=== PATIENT | male | born 1960 | race Caucasian/White ===

== ENCOUNTER 2018-04-17 08:15 | Inpatient (IN) ==
[2018-04-17 08:30] LABS: Basophils # 0.1 K/mm3 (0-0.2); Basophils % 0.3 % (0.1-2.0); Eosinophils # 0.1 K/mm3 (0.0-0.4); Eosinophils % 0.6 % (0.1-12.0); Hematocrit 50.2 % (42.0-52.0); Hemoglobin 16.7 g/dL (14.1-18.0); Lymphocytes # 1.9 K/mm3 (0.7-4.5); Lymphocytes % 12.3 K/mm3 (10-50); Mean Corpuscular HGB Conc 33.2 g/dL (31.8-35.4); Mean Corpuscular Hemoglobin 30.3 pg (27.0-31.2); Mean Corpuscular Volume 91.2 fl (80-94); Mean Platelet Volume 7.7 fl (7.4-10.4); Monocytes # 0.8 K/mm3 (0.1-1.0); Neutrophils # 12.6 K/mm3 (1.8-7.8); Neutrophils % 81.8 % (37.0-80.0); Platelet Count 294 K/mm3 (142-424); Red Cell Distribution Width 13.2 % (11.5-17.5); White Blood Count 15.4 K/mm3 (4.8-10.8)
[2018-04-17 08:38] LABS: Anion Gap 7.4 mEq/L (5-15); Calcium 9.4 mg/dL (8.5-10.1); Potassium 4.4 mmoL/L (3.5-5.1)
--- NOTE | 2018-04-17 08:41 | Emergency Department Note ---
ED Disposition Clinical Impression: Acute pancreatitis Qualifiers: Pancreatitis type: other Acute pancreatitis complication: unspecified Qualified Code(s): K85.80 - Other acute pancreatitis without necrosis or infection Chest pain Qualifiers: Chest pain type: unspecified Qualified Code(s): R07.9 - Chest pain, unspecified Leukocytosis Qualifiers: Leukocytosis type: unspecified Qualified Code(s): D72.829 - Elevated white blood cell count, unspecified Syncope Qualifiers: Syncope type: unspecified Qualified Code(s): R55 - Syncope and collapse Disposition: Admitted As Inpatient Condition on Discharge: Fair Time of Disposition: 09:58 - Critical Care Critical Care Time: No Attestation: On 04/17/18, the high probability of a clinically significant, sudden or life threatening deterioration of the following system(s) required my full and direct attention, intervention and personal management. The time I documented below is in addition to time spent performing reported procedures but includes the following listed in this critical care notation. Total Critical Care Time: 90 Vital system(s) involved:: Metabolic Failure My critical care processes included: Assessment & monitoring of V/S, Initial and Re-exams, Data Review/Interpretation, Coordinating Care, Medication Orders and management, Documentation Medical Decision Making - Medical Records Medical records reviewed: Yes: I reviewed the patient's medical records. - Jarred Inquiry Pt receiving controlled substance: No Vital Signs: 04/17/18 08:15 04/17/18 08:38 04/17/18 08:54 Temperature 97.7 F Temperature Source Oral Pulse Rate Pulse Rate [Orthostatic Lying Right Brachial] 61 Pulse Rate [Orthostatic Sitting Right Brachial] 56 L Pulse Rate [Orthostatic Standing Right Brachial] 60 Pulse Rate [Right Brachial] 62 70 Respiratory Rate 18 18 Blood Pressure Blood Pressure [Orthostatic Lying Right Arm] 144/106 Blood Pressure [Orthostatic Sitting Right Arm] 134/74 Blood Pressure [Orthostatic Standing Right Arm] 139/86 Blood Pressure [Right Arm] 124/61 144/91 Blood Pressure Mean [Right Arm] 82 108 Blood Pressure Source Blood Pressure Source [Right Arm] Automatic Cuff Automatic Cuff Blood Pressure Position Blood Pressure Position [Right Arm] Sitting Sitting 02 Sat by Pulse Oximetry 93 L 93 L Oxygen Delivery Method Room Air Room Air 04/17/18 09:15 04/17/18 09:57 04/17/18 10:36 Temperature 97.9 F Temperature Source Oral Pulse Rate 72 Pulse Rate [Orthostatic Lying Right Brachial] Pulse Rate [Orthostatic Sitting Right Brachial] Pulse Rate [Orthostatic Standing Right Brachial] Pulse Rate [Right Brachial] 60 62 Respiratory Rate 18 18 18 Blood Pressure 155/82 Blood Pressure [Orthostatic Lying Right Arm] Blood Pressure [Orthostatic Sitting Right Arm] Blood Pressure [Orthostatic Standing Right Arm] Blood Pressure [Right Arm] 133/69 137/80 Blood Pressure Mean [Right Arm] 90 99 Blood Pressure Source Automatic Cuff Blood Pressure Source [Right Arm] Automatic Cuff Automatic Cuff Blood Pressure Position Sitting Blood Pressure Position [Right Arm] Sitting Sitting 02 Sat by Pulse Oximetry 95 95 Oxygen Delivery Method Room Air Room Air Room Air - Lab Data Lab results reviewed: Yes: I reviewed the patient's lab results. Lab Results 04/17/18 08:25: WBC 15.4 H, RBC 5.50, Hgb 16.7, Hct 50.2, MCV 91.2, MCH 30.3, MCHC 33.2, RDW 13.2, Plt Count 294, MPV 7.7, Neut % (Auto) 81.8 H, Lymph % (Auto ) 12.3, [place] % (Auto) 5.0, Eos % (Auto) 0.6, Baso % (Auto) 0.3, Neut # (Auto) 12.6 H, Lymph # (Auto) 1.9, [place] # (Auto) 0.8, Eos # (Auto) 0.1, Baso # (Auto) 0.1, Total Counted 100, Neutrophils % (Manual) 86 H, Lymphocytes % (Manual) 6 L , Atypical Lymphs % 6.0, Monocytes % (Manual) 2, Platelet Estimate Normal, RBC Morphology Normal 04/17/18 08:25: Troponin I < 0.02 04/17/18 08:25: Sodium 138, Potassium 4.4, Chloride 105, Carbon Dioxide 30, Anion Gap 7.4, BUN 19 H, Creatinine 0.96, Estimated Creat Clear 136, Estimated GFR 81, Est GFR ( Amer) 98, Glucose 170 H, Calcium 9.4 04/17/18 08:25: Total Bilirubin 0.7, Direct Bilirubin 0.1, Indirect Bilirubin 0.6, AST 19, ALT 39, Alkaline Phosphatase 76, Total Protein 7.6, Albumin 4.1 04/17/18 08:25: D-Dimer 215 04/17/18 08:25: B-Natriuretic Peptide 11 04/17/18 08:25: Amylase 1539 H*, Lipase 13256 H, TSH 2.96 Result diagrams: 04/17/18 08:25 04/17/18 08:25 Orders (Tests/Meds): ED MEDICATIONS Generic Name Dose Route Start Last Admin Trade Name Maxi PRN Reason Stop Dose Admin Sodium Chloride 1,000 mls @ 125 mls/hr 04/17/18 10:22 04/17/18 10:56 Sod Chlor 0.9% 1000ml Bag IV 05/17/18 10:21 125 mls/hr .Q8H MIHAELA Administration Morphine Sulfate 4 mg 04/17/18 10:22 Morphine 4mg/Ml Syringe IV 05/17/18 10:21 Q4HP PRN Moderate to Severe Pain Ondansetron HCl 4 mg 04/17/18 10:22 Zofran 4mg/2ml Vial IV 05/17/18 10:21 Q4HP PRN Nausea Sodium Chloride 10 ml 04/17/18 10:58 Saline Flush 10ml Syringe IV 05/17/18 10:57 NEEDED PRN Maintain IV Site Discontinued Medications Generic Name Dose Route Start Last Admin Trade Name Maxi PRN Reason Stop Dose Admin Aspirin 324 mg 04/17/18 08:42 04/17/18 08:45 Aspirin 81mg Chewable Tablet PO 04/17/18 08:43 324 mg ONCE ONE Administration Sodium Chloride 1,000 mls @ 999 mls/hr 04/17/18 09:00 04/17/18 08:56 Sod Chlor 0.9% 1000ml Bag IV 04/17/18 10:00 999 mls/hr .Q1H1M MIHAELA Administration Iopamidol 75 ml 04/17/18 09:41 04/17/18 09:42 [id number]; 75ml Vial IV 04/17/18 09:42 75 ml ONCE ONE Administration Morphine Sulfate 4 mg 04/17/18 10:16 04/17/18 10:30 Morphine 4mg/Ml Syringe IV 04/17/18 10:17 4 mg ONCE ONE Administration Morphine Sulfate 4 mg 04/17/18 10:22 04/17/18 10:38 Morphine 4mg/Ml Syringe IV 04/17/18 10:23 Not Given ONCE ONE Ondansetron HCl 4 mg 04/17/18 10:16 04/17/18 10:30 Zofran 4mg/2ml Vial IV 04/17/18 10:17 4 mg ONCE ONE Administration Ondansetron HCl 4 mg 04/17/18 10:22 04/17/18 10:38 Zofran 4mg/2ml Vial IV 04/17/18 10:23 Not Given ONCE ONE Sodium Chloride 10 ml 04/17/18 09:41 04/17/18 09:42 Rad-Saline Flush 10ml Syringe IV 04/17/18 09:42 10 ml ONCE ONE Administration Sodium Chloride 50 ml 04/17/18 09:41 04/17/18 09:42 Rad-Ns 50ml Vial IV 04/17/18 09:42 50 ml ONCE ONE Administration ORDERS Category Date Time Status UDS [Drug Screen,Urine] Stat Lab 04/17/18 08:55 Ordered Urinalysis and Microscopic Stat Lab 04/17/18 08:55 Ordered - Radiology Data #1 Image(s): Chest Image Reviewed: Yes I reviewed the patient's radiology results, Yes I reviewed the patient's radiology image, Yes I discussed the image results w/the radiologist, Yes I have reviewed radiologist's interpretation Preliminary Findings: Normal/NAD - CT Data CT Scan: Abdomen, Pelvis, Chest Time Received: 09:[address] Reviewed: Yes: I have reviewed the patient's CT results, I discussed the CT results w/the radiologist, I have viewed the radiologist's interpretation Preliminary Findings: Abnormal Findings Narrative: CT chest PE protocol - neg for PE, + cardiomegaly, + mild CHF - ECG Data Tracing #1 I reviewed this ECG and interpreted as documented below: heart rate 61, ECG normal with no acute: arrhythmias, ischemia, conduction abnormalities, chamber hypertrophy Normal Sinus Rhythm: Yes - Physician Consults Physician Consulted: Dr Teodoor Cox Time: 10:01 Reason -: Admission, Pt condition Comment/Response: advised of patient's presentation, findings, agreeable with admission. Additional Consult: DOMINIQUE Pelayo Time: 09:40 Reason -: Admission, Pt condition, Cardiology Eval/Care - Reevaluation(s) Time: 09:45 Reevaluation #1: Patient is medically stable, in no acute distress, discussed with patient the CAT scan findings, as well as decision to admit and keep him n.p.o., receive IV fluids and pain medication. General Adult HPI - General Chief complaint: Weakness Stated complaint: nausea, weakness Time Seen by Provider: 04/17/18 08:30 Mode of Arrival: Wheelchair Source of Information: Patient Limitations: No Limitations Description of Symptoms (Recalled from ER Triage Doc. by RN): Pt reports sharp stabbing pain lastnight after mowing, reports pain lasted approx 10 seconds and then went away, states he felt normal after that. Pt reports then at 0100 this morning he woke feeling nausea, epigastric area pain and feeling dizzy. Pt reports she found pt in the floor at 0600 this morning, pt reports he tried to get up got dizzy and fell. Pt is diaphoretic and pale upon arrival to ED - History of Present Illness HPI narrative: Patient is a 57-year-old male patient arrived to the emergency room after having a syncopal episode around 6 AM today, as described by his . Around 7 PM last night. Interscapular pain after mowing the lawn, and at 1 AM he had sharp, stabbing pain in the epigastric area. Patient had a steak last night with a bottle of beer, but denies any consistent, steady alcohol intake. He denies any previous, similar episodes in the past. Denies having any cardiac history. Onset (ago): hour(s) (3) Location: chest (posterior chest pain), abdomen (epigastrc pain) Radiation: non-radiation Severity: severe Severity scale (1-10): 8 Quality: sharp Consistency: constant Relieving factors: none Exacerbating factors: eating Associated symptoms: chest pain, diaphoresis, syncope - Related Data Home Medications Medication Instructions Recorded Confirmed Aspirin 81 mg PO DAILY 04/17/18 04/17/18 Omeprazole [Omeprazole 20mg Tab] 20 mg PO DAILY 04/17/18 04/17/18 Allergies Allergy/AdvReac Type Severity Reaction Status Date / Time No Known Allergies Allergy Verified 04/17/18 08:25 [facility] History I have reviewed the patient's past medical history: Yes Medical History: Denies:: Diabetes Mellitus Type 1, Diabetes Mellitus Type 2 - Social History Alcohol Intake: current Alcohol Intake Frequency:: holidays/special occasions only - Psychiatric History Expresses thoughts of harming self/others: None Suicide Plan Description: No Plan ROS Obtained: Yes All systems reviewed & no additional complaints, Yes Systems reviewed as appropriate & no additional complaints - Constitutional Constitutional: Reports weakness - Cardiovascular Cardiovascular: Reports as per HPI, Reports chest pain - Gastrointestinal Gastrointestingal: Reports: as per HPI, abdominal pain, nausea - Neurologic Neurologic: Reports as per HPI, Reports syncope Physical Exam - General General appearance: alert, in distress (mild) - Head Head exam: atraumatic, normocephalic, normal inspection - Neck Neck exam: Present: normal inspection, full ROM, trachea midline. Absent: meningismus, lymphadenopathy - Chest Chest inspection: Present: normal inspection, symmetric chest wall rise. Absent : tenderness - Respiratory Respiratory exam: Present: normal lung sounds bilaterally. Absent: respiratory distress - Cardiovascular Cardiovascular exam: Present: regular rate, normal rhythm. Absent: JVD - Abdominal Exam Abdominal exam: Present: soft, tenderness (upper abdomen), normal bowel sounds. Absent: distention, guarding - Extremities Exam Extremities exam: Present: normal inspection, full ROM, normal capillary refill. Absent: calf tenderness - Back Exam Back exam: Present: normal inspection. Absent: tenderness - Neurological Exam Neurological exam: Present: alert, oriented X3, CN II-XII intact, normal gait - Psychiatric Psychiatric exam: Present: normal affect, normal mood - Skin Skin exam: Present: warm, dry, intact, normal color - Lymphatic Lymphatic Findings: no adenopathy
[2018-04-17 08:56] LABS: Albumin Level 4.1 gm/dL (3.4-5.0); Bilirubin,Direct 0.1 mg/dL (0.0-0.2); Bilirubin,Indirect 0.6 mg/dL (0.0-0.9); Bilirubin,Total 0.7 mg/dL (0.2-1.0); Total Protein,Serum 7.6 gm/dL (6.4-8.2)
[2018-04-17 09:11] LABS: Lymphocytes % 6 % (10-50); Monocytes % 2 % (2-9); Neutrophils % 86 % (42-76); RBC Morphology Normal; Total Cells Counted 100
[2018-04-17 09:22] LABS: Thyroid Stimulating Hormone 2.96 uIU/ml (0.358-3.740)
--- NOTE | 2018-04-17 10:08 | Consult Report ---
History of Present Illness Consult date: 04/17/18 Consult reason: chest pain Chief complaint: Near syncope, abdominal pain Additional Medical History:: 1. Arthritis History of present illness: 57 yo WM presented to ER for evaluation of abdominal pain with nausea and lightheadedness. Patient relates onset of back discomfort after mowing and weed - eating last evening. Symptoms of back pain noted between the shoulder blades and last for about 10 minutes. Denies any vomiting or diarrhea. He went home and ate supper to shower and went to bed. He was awakened at 1 AM with discomfort in the upper abdomen/lower chest area again without vomiting or diarrhea but with nausea and dry heaving. Symptoms were recurrent throughout the rest of the morning until at 6 AM when he went into the bedroom he became lightheaded and dizzy and fell to the floor. His discovered him there stating he was awake but sweating profusely. They had plans to bring him to the doctor, but en route to the hospital, symptoms became worse and he came to the ER for evaluation. Initial evaluation in the ER shows normal troponins and EKG showing sinus bradycardia without acute changes. D-dimer is normal as is BNP. Patient is under CT of chest and abdomen due to elevated amylase and lipase. Echocardiogram is pending. Cardiology consulted for evaluation. [facility] History Medical History: Denies:: Diabetes Mellitus Type 1, Diabetes Mellitus Type 2 - *Social History Alcohol Intake: current Alcohol Intake Frequency:: holidays/special occasions only - Psychiatric History Expresses thoughts of harming self/others: None Suicide Plan Description: No Plan Meds Home Medications Medication Instructions Recorded Confirmed Type Aspirin 81 mg PO DAILY 04/17/18 04/17/18 History Omeprazole [Omeprazole 20mg Tab] 20 mg PO DAILY 04/17/18 04/17/18 History Allergies Allergy/AdvReac Type Severity Reaction Status Date / Time No Known Allergies Allergy Verified 04/17/18 08:25 Review of Systems - *Cardiovascular Reports chest pain - *Respiratory Denies shortness of breath with activity - *Gastrointestinal Reports abdominal pain, Reports nausea - *Genitourinary Denies difficulty urinating - *Musculoskeletal Reports joint pain - *Neurologic Reports weakness Exam Vital signs and Labs for Last 24 Hours: Temp Pulse Resp BP Pulse Ox 97.7 F 62 18 137/80 95 04/17/18 08:15 04/17/18 09:57 04/17/18 09:57 04/17/18 09:57 04/17/18 09:57 Laboratory Results - last 24 hr 04/17/18 08:25: WBC 15.4 H, RBC 5.50, Hgb 16.7, Hct 50.2, MCV 91.2, MCH 30.3, MCHC 33.2, RDW 13.2, Plt Count 294, MPV 7.7, Neut % (Auto) 81.8 H, Lymph % (Auto ) 12.3, [place] % (Auto) 5.0, Eos % (Auto) 0.6, Baso % (Auto) 0.3, Neut # (Auto) 12.6 H, Lymph # (Auto) 1.9, [place] # (Auto) 0.8, Eos # (Auto) 0.1, Baso # (Auto) 0.1, Total Counted 100, Neutrophils % (Manual) 86 H, Lymphocytes % (Manual) 6 L , Atypical Lymphs % 6.0, Monocytes % (Manual) 2, Platelet Estimate Normal, RBC Morphology Normal 04/17/18 08:25: Troponin I < 0.02 04/17/18 08:25: Sodium 138, Potassium 4.4, Chloride 105, Carbon Dioxide 30, Anion Gap 7.4, BUN 19 H, Creatinine 0.96, Estimated Creat Clear 136, Estimated GFR 81, Est GFR ( Amer) 98, Glucose 170 H, Calcium 9.4 04/17/18 08:25: Total Bilirubin 0.7, Direct Bilirubin 0.1, Indirect Bilirubin 0.6, AST 19, ALT 39, Alkaline Phosphatase 76, Total Protein 7.6, Albumin 4.1 04/17/18 08:25: D-Dimer 215 04/17/18 08:25: B-Natriuretic Peptide 11 04/17/18 08:25: Amylase 1539 H*, Lipase 59682 H, TSH 2.96 I & O for Last 24 hours: Intake & Output 04/14/18 04/15/18 04/16/18 04/17/18 11:59 11:59 11:59 11:59 Weight 250 lb Assessment and Plan (1) Acute pancreatitis Current visit: Yes Status: Acute Qualifiers: Pancreatitis type: other Acute pancreatitis complication: unspecified Qualified Code(s): K85.80 - Other acute pancreatitis without necrosis or infection Category: Medical Code(s): K85.90 - Acute pancreatitis without necrosis or infection, unspecified (2) Chest pain Current visit: Yes Status: Acute Qualifiers: Chest pain type: unspecified Qualified Code(s): R07.9 - Chest pain, unspecified Category: Medical Code(s): R07.9 - Chest pain, unspecified (3) Leukocytosis Current visit: Yes Status: Acute Qualifiers: Leukocytosis type: unspecified Qualified Code(s): D72.829 - Elevated white blood cell count, unspecified Category: Medical Code(s): D72.829 - Elevated white blood cell count, unspecified (4) Syncope Current visit: Yes Status: Acute Qualifiers: Syncope type: unspecified Qualified Code(s): R55 - Syncope and collapse Category: Medical Code(s): R55 - Syncope and collapse - Assessment and plan all Dx Assessment and Plan for all problems:: 1. Non-cardiac chest pains felt due to acute pancreatitis. 2. Echo shows preserved LVEF without wall motion abnormalities. Mitral Valve prolapse noted without regurgitation. Mild Aortic insufficiency. 3. No further cardiac workup at this time. 4. Follow up in our office in 2-3 wks.
--- NOTE | 2018-04-17 13:04 | History & Physical Report ---
*Admission Date: 04/17/18 *Chief complaint: abdominal pain *History of present illness: Mr. Shah is a 57 yo WM who presented to ER for evaluation of abdominal pain with nausea and lightheadedness that started this morning at 1 AM. Patient reports onset of back discomfort after mowing and weed-eating last evening that resolved. Pain was noted to be between the shoulder blades and last for about 10 minutes. Denies any vomiting or diarrhea. He went home and ate supper ( steak and a beer) had a shower and went to bed. He was awakened at 1 AM with discomfort in the upper abdomen/lower chest area again without vomiting or diarrhea but with nausea and dry heaving. Symptoms were recurrent throughout the rest of the morning until at 6 AM when he went into the bedroom he became lightheaded and dizzy and fell to the floor. His was present at bedside reports finding him on the floor of the bathroom awake, clammy, and sweating profusely. They had plans to bring him to the doctor, but en route to the hospital, symptoms became worse with a presyncopal episode reported in the car. He came to the ER for evaluation. Initial evaluation in the ER shows normal troponins and EKG showing sinus bradycardia without acute changes. D-dimer is normal as is BNP. Patient is under CT of chest and abdomen due to elevated amylase and lipase. Lipase significantly elevated greater than 11,000, her leukocytosis approximately 15,000, and CT abdomen with positive findings suggestive of pancreatitis. Cardiology consulted for evaluation of chest/back pain. Found to have non-cardiac etiology of pain. Admitted to inpatient medicine service for further management. [facility] History I have reviewed the patient's past medical history: Yes Medical History: Denies:: Diabetes Mellitus Type 1, Diabetes Mellitus Type 2 - *Social History Smoking Status: Former smoker Tobacco Type: cigars Alcohol Intake: current Alcohol Intake Frequency:: holidays/special occasions only - Psychiatric History Expresses thoughts of harming self/others: None Suicide Plan Description: No Plan Comment: Family history significant for brother with pancreatitis, mother with pancreatic cancer. Review of Systems - Review of Systems Review of systems:: pertinent systems reviewed and negative unless documented below - *Neurologic Reports fainting, Reports weakness Meds Home Medications Medication Instructions Recorded Confirmed Type Aspirin 81 mg PO DAILY 04/17/18 04/17/18 History Omeprazole [Omeprazole 20mg Tab] 20 mg PO DAILY 04/17/18 04/17/18 History Allergies Allergy/AdvReac Type Severity Reaction Status Date / Time No Known Allergies Allergy Verified 04/17/18 08:25 Exam Vital signs and Labs for Last 24 Hours: Temp Pulse Resp BP Pulse Ox 98.1 F 57 L 18 141/71 95 04/17/18 10:54 04/17/18 10:54 04/17/18 10:54 04/17/18 10:54 04/17/18 10:54 Laboratory Results - last 24 hr 04/17/18 08:25: WBC 15.4 H, RBC 5.50, Hgb 16.7, Hct 50.2, MCV 91.2, MCH 30.3, MCHC 33.2, RDW 13.2, Plt Count 294, MPV 7.7, Neut % (Auto) 81.8 H, Lymph % (Auto ) 12.3, [place] % (Auto) 5.0, Eos % (Auto) 0.6, Baso % (Auto) 0.3, Neut # (Auto) 12.6 H, Lymph # (Auto) 1.9, [place] # (Auto) 0.8, Eos # (Auto) 0.1, Baso # (Auto) 0.1, Total Counted 100, Neutrophils % (Manual) 86 H, Lymphocytes % (Manual) 6 L , Atypical Lymphs % 6.0, Monocytes % (Manual) 2, Platelet Estimate Normal, RBC Morphology Normal 04/17/18 08:25: Troponin I < 0.02 04/17/18 08:25: Sodium 138, Potassium 4.4, Chloride 105, Carbon Dioxide 30, Anion Gap 7.4, BUN 19 H, Creatinine 0.96, Estimated Creat Clear 136, Estimated GFR 81, Est GFR ( Amer) 98, Glucose 170 H, Calcium 9.4 04/17/18 08:25: Total Bilirubin 0.7, Direct Bilirubin 0.1, Indirect Bilirubin 0.6, AST 19, ALT 39, Alkaline Phosphatase 76, Total Protein 7.6, Albumin 4.1 04/17/18 08:25: D-Dimer 215 04/17/18 08:25: B-Natriuretic Peptide 11 04/17/18 08:25: Amylase 1539 H*, Lipase 32196 H, TSH 2.96 I & O for Last 24 hours: Intake & Output 04/14/18 04/15/18 04/16/18 04/17/18 23:59 23:59 23:59 23:59 Weight 117.48 kg - *Routine HEENT Exam Head: Present: normocephalic, atraumatic Eye: Present: EOMI ENT: Present: mucous membranes moist - *Routine Neck Exam Present: supple. Absent: lymphadenopathy - *Routine Respiratory Exam Present: CTA bilaterally. Absent: prolonged expiratory phase, rales, wheezes, crackles - *Routine Cardiovascular Exam Present: RRR, Normal S1, Normal S2. Absent: murmur - *Routine Abdominal Exam Present: soft, normoactive bowel sounds, tenderness Comments: Tender in left upper and left lower quadrants. No rebound. Palpation on right side of abdomen produces pain on left side. - *Routine Rectal Exam Patient deferred: visual exam - *Routine Exam Patient deferred: penile exam - *Routine Extremities Exam Absent: cyanosis, clubbing, edema - *Routine Skin Exam Present: intact. Absent: cyanosis, erythema, jaundice - *Routine Neurological Exam Present: alert, oriented X3, CN II-XII intact - Routine Psychiatric Exam Present: normal affect, normal thought process, cooperative, good insight H&P: Result - Labs Labs: Short CBC 04/17/18 Range/Units 08:25 WBC 15.4 H (4.8-10.8) K/mm3 Hgb 16.7 (14.1-18.0) g/dL Hct 50.2 (42.0-52.0) % Plt Count 294 (142-424) K/mm3 [facility] 04/17/18 08:25 Sodium 138 Potassium 4.4 Chloride 105 Carbon Dioxide 30 BUN 19 H Creatinine 0.96 Glucose 170 H Calcium 9.4 Cardiac Enzymes 04/17/18 Range/Units 08:25 Troponin I < 0.02 (0.00-0.06) ng/ml Liver Function 04/17/18 Range/Units 08:25 Total Bilirubin 0.7 (0.2-1.0) mg/dL Direct Bilirubin 0.1 (0.0-0.2) mg/dL AST 19 (15-37) U/L ALT 39 (12-78) U/L Alkaline Phosphatase 76 (46-116) U/L Albumin 4.1 (3.4-5.0) gm/dL Assessment and Plan (1) Class II obesity Current visit: Yes Status: Chronic Category: Medical Code(s): E66.9 - Obesity, unspecified (2) Acute pancreatitis Current visit: Yes Status: Acute Qualifiers: Pancreatitis type: other Acute pancreatitis complication: unspecified Qualified Code(s): K85.80 - Other acute pancreatitis without necrosis or infection Category: Medical Code(s): K85.90 - Acute pancreatitis without necrosis or infection, unspecified (3) Leukocytosis Current visit: Yes Status: Acute Qualifiers: Leukocytosis type: unspecified Qualified Code(s): D72.829 - Elevated white blood cell count, unspecified Category: Medical Code(s): D72.829 - Elevated white blood cell count, unspecified (4) Syncope Current visit: Yes Status: Acute Qualifiers: Syncope type: unspecified Qualified Code(s): R55 - Syncope and collapse Category: Medical Code(s): R55 - Syncope and collapse - Assessment and plan all Dx Assessment and Plan for all problems:: Mr. Shah is a 57-year-old male who presents with acute episode of pancreatitis. No clear risk factors as he has no history of gallstones, does not drink heavily, does not smoke anymore. Family history with other family members having had pancreatitis. -1 Joana criteria on admission, suggestive of mild pancreatitis, repeat score in 48 hours -Aggressive fluid resuscitation -Clear liquid diet, advance as tolerated -Pain control -Monitor for complications -LDH, lipids with morning labs -Right upper quadrant ultrasound pending
[2018-04-17 13:49] LABS: Microscopic, Urine URINE MICROSCOPIC (MICROSCOPIC)
[2018-04-17 13:51] LABS: Appearance,Urine CLEAR (Clear); Bilirubin,Urine Negative (Negative); Blood, Urine 1+ (Negative); Color,Urine YELLOW (Yellow); Glucose,Urine (UA) Negative (Negative); Ketones,Urine 1+ (Negative); Leukocyte Esterase,Urine Negative (Negative); PH,Urine 5.5 (5.0-8.5); Protein,Urine TRACE (Negative); Specific Gravity, Urine 1.025 (1.005-1.030); Urobilinogen,Urine 0.2 EU/dl (0.2)
[2018-04-17 14:02] LABS: Amphetamine/Metha Screen,Urine Negative ng/mL (<1000); Barbiturates Screen,Urine Negative ng/mL (<200); Benzodiazepines Screen,Urine Negative ng/mL (<200); Cannabinoid Screen,Urine Negative ng/mL (<50); Cocaine Screen,Urine Negative ng/mL (<300); Methadone Screen,Urine Negative ng/mL (<300); Opiate Screen,Urine Positive ng/mL (<300); Phencyclidine Screen,Urine Negative ng/mL (<25)
[2018-04-17 14:21] LABS: Bacteria,Urine Trace /lpf; Mucus,Urine Trace /lpf; RBC,Urine Occasional #/hpf (0-3); Squamous Epithelial Cell,Urine Occasional #/hpf (0-5); WBC,Urine Occasional #/hpf (0-3)
--- NOTE | 2018-04-17 15:04 | Cardiology Report ---
PROCEDURE: 2-D M-mode and color Doppler study INDICATIONS FOR THE TEST: Chest pain COPD Heart Murmur Tobacco SmokingEX Palpitations Fatigue SyncopeX Edema Hypertension Diabetes Mellitus Rheumatic Fever SOBXDOE ObesityXHyperlipidemia Family History HDX Additional History PATIENT INFORMATION HEIGHT: 70 WEIGHT:250 GENDER: Male B/P:117/62 2-D/M-MODE INTERPRETATION: 2-D MEASUREMENTS OBSERVED VALUES IN CMS Right Ventricular Dimension (RVDd) 2.6 Interventricular Septum (Thickness)(IVsd) 1.0 Left Ventricular Internal Dimensions(LVIDd) 5.8 Left Ventricular Posterior Wall (Thickness)(LVPWd) 1.2 Aortic Root 3.6 Aortic Cusp Separation 2.4 Left Atrial Dimensions (LAD) 4.0 2D 1. Left atrium is qualitatively mildly enlarged, left ventricle is normal size, visually estimated ejection fraction 55% with no obvious regional wall motion abnormality, left ventricle wall thickness is upper limit of the normal. 2. The right atrium and right ventricle are normal size and contractility. 3. The aortic valve is minimally thickened and fibrosed. 4. 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 5. The tricuspid valve is grossly normal. 6. The pulmonic valve is poorly visualized 7. No significant pericardial effusion noted. DOPPLER INTERROGATION: Doppler interrogation of the aortic, mitral and tricuspid valvular presence of mild aortic, mild mitral and tricuspid regurgitation, tricuspid regurgitant jet velocity is insufficient for calculation of the right ventricular systolic pressure, grade 1 diastolic dysfunction seen without tissue Doppler evidence of raised left atrial pressure. CONCLUSION: 1. Mildly enlarged left atrium, normal left ventricular size, visually estimated ejection fraction 55% with no obvious regional wall motion abnormality. Grade 1 diastolic dysfunction seen without tissue Doppler evidence of raised left atrial pressure. 2. Aortic sclerosis associated with mild aortic insufficiency, there is no aortic stenosis. 3. Mild mitral valve prolapse involving the posterior leaflet, there is no mitral stenosis, there is mild mitral regurgitation. No significant pericardial effusion noted.
--- NOTE | 2018-04-17 15:57 | Pharmacy Consult Notes ---
[facility] Pharm[facility] VTE Monitoring - Patient Demographics Admission date: 04/17/18 Report Date: 04/17/18 Time: 15:56 Allergies/Adverse Reactions: Patient Allergies No Known Allergies Allergy (Verified 04/17/18 08:25) Height: 1.78 m Weight: 117.48 kg Patient Problems: Current Active Problems Acute pancreatitis (Acute) Chest pain (Acute) Leukocytosis (Acute) Syncope (Acute) - VTE Risk Labs: VTE Related Lab Results Hgb 16.7 g/dL (14.1-18.0) 04/17/18 08:25 Hct 50.2 % (42.0-52.0) 04/17/18 08:25 Plt Count 294 K/mm3 (142-424) 04/17/18 08:25 BUN 19 mg/dL (7-18) H 04/17/18 08:25 Creatinine 0.96 mg/dL (0.70-1.30) 04/17/18 08:25 Estimated Creat Clear 136 mL/min (0-300) 04/17/18 08:25 Was VTE Risk Assessment Performed: Yes VTE Score: 2 VTE Risk Level: Very Low Risk Clinical Trial Participant: No - Prophylaxis VTE Prophylaxis Ordered?: Yes Types of VTE Prophylaxis: TEDS Knee High Location of Applied Device: Not Applicable
[2018-04-18 06:16] LABS: Basophils % 0.1 % (0.1-2.0); Hematocrit 44.4 % (42.0-52.0); Lymphocytes # 1.2 K/mm3 (0.7-4.5); Mean Corpuscular Volume 91.4 fl (80-94); Monocytes # 1.1 K/mm3 (0.1-1.0); Monocytes % 6.2 % (1.7-9.3)
[2018-04-18 06:28] LABS: Eosinophils % 0.1 % (0.1-12.0); Lymphocytes % 6.6 K/mm3 (10-50); Mean Corpuscular HGB Conc 33.6 g/dL (31.8-35.4); Mean Corpuscular Hemoglobin 30.7 pg (27.0-31.2); Mean Platelet Volume 7.8 fl (7.4-10.4); Neutrophils # 15.7 K/mm3 (1.8-7.8); Platelet Count 194 K/mm3 (142-424); Red Blood Count 4.85 M/mm3 (4.60-6.20); Red Cell Distribution Width 13.1 % (11.5-17.5); White Blood Count 18.1 K/mm3 (4.8-10.8)
[2018-04-18 06:31] LABS: Albumin Level 3.2 gm/dL (3.4-5.0); Anion Gap 7.7 mEq/L (5-15); Globulin 3.3 gm/dl (1.3-3.2); Potassium 3.7 mmoL/L (3.5-5.1); Total Protein,Serum 6.5 gm/dL (6.4-8.2)
[2018-04-18 06:32] LABS: Hemoglobin 14.9 g/dL (14.1-18.0)
[2018-04-18 06:39] LABS: Calcium 7.9 mg/dL (8.5-10.1)
[2018-04-18 06:58] LABS: Lymphocytes % 5 % (10-50); Monocytes % 10 % (2-9); Neutrophils % 85 % (42-76); RBC Morphology Normal; Total Cells Counted 100
--- NOTE | 2018-04-18 10:17 | Progress Note ---
Internal Medicine - PN: Subj *Date: 04/18/18 *Time: 08:20 Interval history: Patient states "I feel better than I did yesterday." Abdominal pain has improved. No nausea. Alert and oriented x3. Rate and rhythm regular. No LE edema. Pulse 2+ bilaterally. Lung sounds clear and equal. Abdomen protuberant, slightly distended, globalized tenderness, no rebound or guarding. No neuro deficits. Exam Vital signs and Labs for Last 24 Hours: Temp Pulse Resp BP Pulse Ox 97.6 F 102 H 18 126/72 92 L 04/18/18 08:00 04/18/18 08:00 04/18/18 08:00 04/18/18 08:00 04/18/18 08:00 Laboratory Results - last 24 hr 04/17/18 13:40: Urine Color Yellow, Urine Appearance Clear, Urine pH 5.5, Ur Specific [place] 1.025, Urine Protein Trace, Urine Glucose (UA) Negative, Urine Ketones 1+, Urine Blood 1+, Urine Nitrate Negative, Urine Bilirubin Negative, Urine Urobilinogen 0.2, Ur Leukocyte Esterase Negative, Urine RBC Occasional, Urine WBC Occasional, Ur Squamous Epith Cells Occasional, Urine Bacteria Trace, Urine Mucus Trace 04/17/18 13:40: Urine Opiates Screen Positive H, Urine Methadone Screen Negative , Ur Barbituates Screen Negative, Ur Phencyclidine Scrn Negative, Ur Amphetamines Screen Negative, U Benzodiazepines Scrn Negative, Urine Cocaine Screen Negative, U Marijuana (THC) Screen Negative 04/18/18 05:45: WBC 18.1 H, RBC 4.85, Hgb 14.9 D, Hct 44.4, MCV 91.4, MCH 30.7 , MCHC 33.6, RDW 13.1, Plt Count 194 D, MPV 7.8, Neut % (Auto) 87.0 H, Lymph % (Auto) 6.6 L, [place] % (Auto) 6.2, Eos % (Auto) 0.1, Baso % (Auto) 0.1, Neut # ( Auto) 15.7 H, Lymph # (Auto) 1.2, [place] # (Auto) 1.1 H, Eos # (Auto) 0.0, Baso # (Auto) 0.0, Total Counted 100, Neutrophils % (Manual) 85 H, Lymphocytes % ( Manual) 5 L, Monocytes % (Manual) 10 H, Platelet Estimate Normal, RBC Morphology Normal 04/18/18 05:45: Sodium 134 L, Potassium 3.7, Chloride 104, Carbon Dioxide 26, Anion Gap 7.7, BUN 12 D, Creatinine 0.73 D, Estimated Creat Clear 186, Estimated GFR 111, Est GFR ( Amer) 134 D, Glucose 122 H D, Calcium 7.9 L D, Total Bilirubin 1.0, AST 9 L D, ALT 29 D, Alkaline Phosphatase 62, Lactate Dehydrogenase 172, Total Protein 6.5, Albumin 3.2 L D, Globulin 3.3 H, Albumin/Globulin Ratio 1.0 L, Triglycerides 48, Cholesterol 115 L, LDL Cholesterol 67, VLDL Cholesterol 10, HDL Cholesterol 38, Cholesterol/HDL Ratio 3.0 I & O for Last 24 hours: Intake & Output 04/15/18 04/16/18 04/17/18 04/18/18 11:59 11:59 11:59 11:59 Intake Total 2044 Balance 2044 Weight 259 lb 259 lb Assessment and Plan (1) Class II obesity Current visit: Yes Status: Chronic Category: Medical Code(s): E66.9 - Obesity, unspecified (2) Acute pancreatitis Current visit: Yes Status: Acute Qualifiers: Pancreatitis type: other Acute pancreatitis complication: unspecified Qualified Code(s): K85.80 - Other acute pancreatitis without necrosis or infection Category: Medical Code(s): K85.90 - Acute pancreatitis without necrosis or infection, unspecified (3) Leukocytosis Current visit: Yes Status: Acute Qualifiers: Leukocytosis type: unspecified Qualified Code(s): D72.829 - Elevated white blood cell count, unspecified Category: Medical Code(s): D72.829 - Elevated white blood cell count, unspecified (4) Syncope Current visit: Yes Status: Acute Qualifiers: Syncope type: unspecified Qualified Code(s): R55 - Syncope and collapse Category: Medical Code(s): R55 - Syncope and collapse - Assessment and plan all Dx Assessment and Plan for all problems:: Improving. Gallbladder ultrasound pending. Continue clear liquids. Will evaluate GB US and consult surgery as indicated.
[2018-04-19 06:35] LABS: Albumin Level 2.9 gm/dL (3.4-5.0); Albumin/Globulin Ratio 0.9 (1.1-1.8); Anion Gap 11.7 mEq/L (5-15); Bilirubin,Total 1.2 mg/dL (0.2-1.0); Calcium 7.8 mg/dL (8.5-10.1); Globulin 3.3 gm/dl (1.3-3.2); Potassium 3.7 mmoL/L (3.5-5.1); Total Protein,Serum 6.2 gm/dL (6.4-8.2)
[2018-04-19 06:44] LABS: White Blood Count 17.1 K/mm3 (4.8-10.8)
[2018-04-19 06:45] LABS: Basophils % 0.2 % (0.1-2.0); Eosinophils # 0.1 K/mm3 (0.0-0.4); Eosinophils % 0.7 % (0.1-12.0); Hematocrit 41.9 % (42.0-52.0); Hemoglobin 14.2 g/dL (14.1-18.0); Lymphocytes # 0.9 K/mm3 (0.7-4.5); Lymphocytes % 5.4 K/mm3 (10-50); Mean Corpuscular Hemoglobin 30.9 pg (27.0-31.2); Mean Corpuscular Volume 91.1 fl (80-94); Mean Platelet Volume 7.7 fl (7.4-10.4); Monocytes # 1.2 K/mm3 (0.1-1.0); Monocytes % 6.9 % (1.7-9.3); Neutrophils # 14.5 K/mm3 (1.8-7.8); Neutrophils % 84.9 % (37.0-80.0); Platelet Count 182 K/mm3 (142-424); Red Cell Distribution Width 13.1 % (11.5-17.5)
[2018-04-19 06:54] LABS: Lymphocytes % 11 % (10-50); Monocytes % 4 % (2-9); Neutrophils % 77 % (42-76); RBC Morphology Normal; Total Cells Counted 100
--- NOTE | 2018-04-19 13:57 | Progress Note ---
Internal Medicine - PN: Subj *Date: 04/19/18 *Time: 13:59 Interval history: Overnight Mr. Chacon reports that his pain is doing better. He is able to tolerate some oral intake without much discomfort. Did require supplemental oxygen overnight due to some orthopnea. Otherwise denies confusion, lower extremity edema, nausea vomiting or diarrhea. Exam Vital signs and Labs for Last 24 Hours: Temp Pulse Resp BP Pulse Ox 98.7 F 88 20 164/77 90 L 04/19/18 11:13 04/19/18 11:13 04/19/18 11:13 04/19/18 11:13 04/19/18 11:13 Laboratory Results - last 24 hr 04/19/18 06:05: Sodium 136, Potassium 3.7, Chloride 102, Carbon Dioxide 26, Anion Gap 11.7, BUN 9, Creatinine 0.81, Estimated Creat Clear 167, Estimated GFR 98, Est GFR ( Amer) 119, Glucose 108 H, Calcium 7.8 L, Magnesium 1.7 , Total Bilirubin 1.2 H, AST 11 L, ALT 24, Alkaline Phosphatase 62, Total Protein 6.2 L, Albumin 2.9 L, Globulin 3.3 H, Albumin/Globulin Ratio 0.9 L 04/19/18 06:05: WBC 17.1 H, RBC 4.60, Hgb 14.2, Hct 41.9 L, MCV 91.1, MCH 30.9, MCHC 34.0, RDW 13.1, Plt Count 182, MPV 7.7, Neut % (Auto) 84.9 H, Lymph % (Auto ) 5.4 L, Hubbard % (Auto) 6.9, Eos % (Auto) 0.7, Baso % (Auto) 0.2, Neut # (Auto) 14.5 H, Lymph # (Auto) 0.9, Hubbard # (Auto) 1.2 H, Eos # (Auto) 0.1, Baso # (Auto ) 0.0, Total Counted 100, Neutrophils % (Manual) 77 H, Band Neutrophils % 8.0, Lymphocytes % (Manual) 11, Monocytes % (Manual) 4, Platelet Estimate Normal, RBC Morphology Normal I & O for Last 24 hours: Intake & Output 04/16/18 04/17/18 04/18/18 04/19/18 23:59 23:59 23:59 23:59 Intake Total 776 / 776 3423 / 3423 1984 Output Total 500 / 500 Balance 776 / 776 2923 / 2923 1984 Weight 117.48 kg - *Routine HEENT Exam Head: Present: normocephalic, atraumatic Eye: Present: EOMI, PERRL ENT: Present: mucous membranes moist - *Routine Neck Exam Present: supple. Absent: lymphadenopathy (Large girth) - *Routine Respiratory Exam Present: decreased breath sounds (Lower lung macario), CTA bilaterally (Upper lung macario), crackles (Fine crackles bilateral posterior lower lung macario). Absent: accessory muscle use, prolonged expiratory phase - *Routine Cardiovascular Exam Present: RRR, Normal S1, Normal S2. Absent: murmur - *Routine Abdominal Exam Present: soft (Full), normoactive bowel sounds, tenderness (Interval improvement decreased left sided tenderness, no rebound, no tenderness with right-sided palpation) - *Routine Rectal Exam Patient deferred: visual exam - *Routine Exam Patient deferred: penile exam - *Routine Extremities Exam Absent: cyanosis, clubbing, edema - *Routine Skin Exam Present: intact. Absent: cyanosis, erythema - *Routine Neurological Exam Present: alert, oriented X3, CN II-XII intact - Routine Psychiatric Exam Present: normal affect, normal thought process, cooperative, good insight Assessment and Plan (1) Class II obesity Current visit: Yes Status: Chronic Category: Medical Code(s): E66.9 - Obesity, unspecified (2) Acute pancreatitis Current visit: Yes Status: Acute Qualifiers: Pancreatitis type: other Acute pancreatitis complication: unspecified Qualified Code(s): K85.80 - Other acute pancreatitis without necrosis or infection Category: Medical Code(s): K85.90 - Acute pancreatitis without necrosis or infection, unspecified (3) Leukocytosis Current visit: Yes Status: Acute Qualifiers: Leukocytosis type: unspecified Qualified Code(s): D72.829 - Elevated white blood cell count, unspecified Category: Medical Code(s): D72.829 - Elevated white blood cell count, unspecified (4) Syncope Current visit: Yes Status: Acute Qualifiers: Syncope type: unspecified Qualified Code(s): R55 - Syncope and collapse Category: Medical Code(s): R55 - Syncope and collapse - Assessment and plan all Dx Assessment and Plan for all problems:: Mr. walker is a 57-year-old man who presented with acute mild to moderate pancreatitis. Symptoms improving. Has 2 [place] criteria on repeat labs showing low mortality risk. Advancing diet. Transitioning to oral pain control. Supplemental oxygen as needed. Will monitor for respiratory distress due to risk for ARDS and fluid shifts with pancreatitis. Instructed to ambulate around the valdovinos today. Initiate incentive spirometer. Reassess in the morning, continues to require inpatient management.
[2018-04-20 05:57] LABS: Anion Gap 10.4 mEq/L (5-15); Calcium 8.3 mg/dL (8.5-10.1); Phosphorous 2.2 mg/dL (2.4-4.9); Potassium 3.4 mmoL/L (3.5-5.1)
--- NOTE | 2018-04-20 07:54 | Discharge Summary ---
General - General Admission date:: 04/17/18 Discharge date: 04/20/18 HPI HPI: Mr. Shah is a 57 yo WM who presented to ER for evaluation of abdominal pain with nausea and lightheadedness that started this morning at 1 AM. Patient reports onset of back discomfort after mowing and weed-eating last evening that resolved. Pain was noted to be between the shoulder blades and last for about 10 minutes. Denies any vomiting or diarrhea. He went home and ate supper ( steak and a beer) had a shower and went to bed. He was awakened at 1 AM with discomfort in the upper abdomen/lower chest area again without vomiting or diarrhea but with nausea and dry heaving. Symptoms were recurrent throughout the rest of the morning until at 6 AM when he went into the bedroom he became lightheaded and dizzy and fell to the floor. His was present at bedside reports finding him on the floor of the bathroom awake, clammy, and sweating profusely. They had plans to bring him to the doctor, but en route to the hospital, symptoms became worse with a presyncopal episode reported in the car. He came to the ER for evaluation. Initial evaluation in the ER shows normal troponins and EKG showing sinus bradycardia without acute changes. D-dimer is normal as is BNP. Patient is under CT of chest and abdomen due to elevated amylase and lipase. Lipase significantly elevated greater than 11,000, her leukocytosis approximately 15,000, and CT abdomen with positive findings suggestive of pancreatitis. Cardiology consulted for evaluation of chest/back pain. Found to have non-cardiac etiology of pain. Admitted to inpatient medicine service for further management. Hospital Course Hospital Course: Patient was admitted as noted above, found to have pancreatitis. Imaging was nondiagnostic for etiology of the pancreatitis-no gallbladder pathology or stones were found. Patient's medication profile and alcohol use does not seem to be indicative of this being the etiology for pancreatitis. Patient does have somewhat of a vague history of pancreas problems, there is a relative with pancreas cancer but there is no significant family history of pancreatitis. Patient improved on pain control and dietary reduction, over the yesterday was able to be advanced to a full liquid diet. He did well with this. Did have a cough and some congestion. Chest x-ray revealed the developing infiltrate in the right lower lung base. Patient apparently has a long history of recurrent pneumonia. This morning patient otherwise is doing well, taking p.o. medication, taking full liquid diet well. Plan will be to discharge home, antibiotics and pain control for the bronchopneumonia/pancreatitis as indicated. He will follow-up with his regular physician on Friday. 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 Objective Vital signs: Temp Pulse Resp BP Pulse Ox 98.9 F 87 20 150/74 93 L 04/20/18 04:00 04/20/18 04:00 04/20/18 04:00 04/20/18 04:00 04/20/18 04:00 Narrative: Rhonchi in the right lower chest. Lungs are otherwise clear, heart rate regular. Abdomen soft and nontender. No edema or clubbing. He is alert, awake and oriented, he has no scleral icterus, no stigmata of liver disease. Results Labs on day of discharge: Labs from last 24 hours 04/20/18 05:32 Sodium 135 L Potassium 3.4 L Chloride 101 Carbon Dioxide 27 Anion Gap 10.4 BUN 9 Creatinine 0.69 L Estimated Creat Clear 196 Estimated GFR 118 Est GFR ( Amer) 143 D Glucose 113 H Calcium 8.3 L Phosphorus 2.2 L Magnesium 2.1 D DS: Diagnosis - Discharge Diagnosis (1) Class II obesity Status: Chronic (2) Acute pancreatitis Status: Resolved (3) Leukocytosis Status: Resolved (4) Syncope Status: Resolved (5) Bronchopneumonia Status: Acute Discharge Plan - Patient Discharge Instructions ACTIVITY: Continue current activity, Other (No work until seen by Dr. Witt) DIET: low fat, low cholesterol - Follow up Plan Follow up with: Moreno Witt [Primary Care Provider] - 04/24/18 Disposition: Home, Self-Detention Medications: Home Medications Medication Instructions Recorded Confirmed Type Aspirin 81 mg PO DAILY 04/17/18 04/17/18 History Omeprazole [Omeprazole 20mg Tab] 20 mg PO DAILY 04/17/18 04/17/18 History Prescriptions/Medication Reconciliation: New Oxycodone HCl [OxyIR 5mg tablet] 5 mg PO Q6HP PRN 3 Days #21 tab PRN Reason: Severe Pain Cefdinir [Omnicef 300mg Capsule] 300 mg PO BID #14 cap Continue Omeprazole [Omeprazole 20mg Tab] 20 mg PO DAILY Aspirin 81 mg PO DAILY
[2018-04-20 07:59] VITALS: BP 156/80
== END 2018-04-20 09:50 | disposition home or self-care (01) ==
LOC: ER 08:15 → 2ND 10:11
PROVIDERS: ADMIT Internal Medicine Adolescent Medicine; ATTEND Internal Medicine Adolescent Medicine

== ENCOUNTER → 2018-05-11 12:43 | Outpatient (POV) | payer OTHER, SELFPAY | PROVIDERS: PCP Internal Medicine; Visit Provider Nurse Practitioner Acute Care | DX: Z00.00 Encounter for general adult medical examination without abnormal findings (principal) ==

== ENCOUNTER → 2018-05-16 09:41 | Outpatient (CLI) | payer OTHER, SELFPAY ==
[2018-05-16 10:01] LABS: Basophils % 0.4 % (0.1-2.0); Eosinophils # 0.3 K/mm3 (0.0-0.4); Eosinophils % 6.1 % (0.1-12.0); Hematocrit 46.9 % (42.0-52.0); Hemoglobin 15.4 g/dL (14.1-18.0); Lymphocytes # 1.8 K/mm3 (0.7-4.5); Lymphocytes % 32.4 K/mm3 (10-50); Mean Corpuscular HGB Conc 32.9 g/dL (31.8-35.4); Mean Corpuscular Hemoglobin 29.7 pg (27.0-31.2); Mean Corpuscular Volume 90.4 fl (80-94); Mean Platelet Volume 7.7 fl (7.4-10.4); Monocytes # 0.5 K/mm3 (0.1-1.0); Neutrophils % 53.1 % (37.0-80.0); Platelet Count 221 K/mm3 (142-424); Red Blood Count 5.19 M/mm3 (4.60-6.20); White Blood Count 5.6 K/mm3 (4.8-10.8)
[2018-05-16 10:16] LABS: Hemoglobin A1C 5.7 % (0.0-7.0)
[2018-05-16 11:22] LABS: Alanine Aminotransferase 34 U/L (12-78); Albumin Level 3.7 gm/dL (3.4-5.0); Albumin/Globulin Ratio 1.1 (1.1-1.8); Anion Gap 11.6 mEq/L (5-15); Aspartate Amino Transferase 20 U/L (15-37); Bilirubin,Total 0.7 mg/dL (0.2-1.0); Blood Urea Nitrogen 10 mg/dL (7-18); Carbon Dioxide 26 mmol/L (21.0-32.0); Chloride 106 mmol/L (98-107); Cholesterol 159 mg/dL (140-200); Creatinine,Serum 0.94 mg/dL (0.70-1.30); Estimated Glomerular Filt Rate 83 ml/min (>60); GFR (African American) 100 ML/MIN (>60); Globulin 3.3 gm/dl (1.3-3.2); Glucose 100 mg/dL (74-106); HDL Cholesterol 37 mg/dL (27-67); LDL Cholesterol 95 mg/dL (0-130); Potassium 4.6 mmoL/L (3.5-5.1); Sodium 139 mmol/L (136-145); Triglycerides 133 mg/dL (30-200); VLDL Cholesterol 27 mg/dL (0-40)
[2018-05-16 11:23] LABS: Alkaline Phosphatase 79 U/L (46-116); Amylase 47 U/L (25-125); Chol/HDL Ratio 4.3 (1-3.5); Lipase 490 u/L (73-393)
[2018-05-19 14:26] LABS: Calcium, Ionized 5.3 mg/dL (4.5-5.6)
[2018-05-19 15:26] LABS: Antinuclear Antibodies, IFA Positive (.)
[2018-05-19 23:06] LABS: IgG, Subclass 1 559 mg/dL (248-810); IgG, Subclass 2 420 mg/dL (130-555); IgG, Subclass 3 73 mg/dL (15-102); IgG, Subclass 4 47 mg/dL (2-96); Immunoglobulin G, Qn 1181 mg/dL (700-1600)
== END ==
PROVIDERS: PCP Internal Medicine; Visit Provider Nurse Practitioner Acute Care
DX: K30 Functional dyspepsia (principal); K85.90 Acute pancreatitis without necrosis or infection, unspecified
CPT/HCPCS: 36415; 80053; 80061; 82150; 82330; 82784; 82787; 83036; 83690; 85025; 86038

== ENCOUNTER → 2021-03-26 10:19 | Outpatient (CLI) | payer OTHER, SELFPAY ==
[2021-03-26 10:21] LABS: Campylobacter Not Detected (NotDetected); Clostridium Difficile A/B, PCR Not Detected (NotDetected); Enteroaggregative E coli Not Detected (NotDetected); Plesimonas Shigalloides, PCR Not Detected (NotDetected); Salmonella, PCR Not Detected (NotDetected); Vibrio Cholerae Not Detected (NotDetected); Vibrio, PCR Not Detected (NotDetected); Yersinia Entercolitica, PCR Not Detected (NotDetected)
[2021-03-26 10:22] LABS: Adenovirus F 40/41, stool Not Detected (NotDetected); Astrovirus Not Detected (NotDetected); Cryptosporidium Not Detected (NotDetected); Cyclospora Cayetanesis Not Detected (NotDetected); Entamoeba histolytica Not Detected (NotDetected); Giardia lamblia Not Detected (NotDetected); Norovirus Not Detected (NotDetected); Rotavirus A Not Detected (NotDetected); Sapovirus Not Detected (NotDetected); Shiga-like toxin E coli Not Detected (NotDetected); Shigella Enterovasive E coli Not Detected (NotDetected)
[2021-03-26 11:22] LABS: Occult Blood,Stool Negative (Negative)
[2021-03-26 13:41] LABS: Enteropathogenic E coli Detected (NotDetected); Enterotoxigenic E coli Detected (NotDetected)
== END ==
PROVIDERS: Visit Provider Internal Medicine
DX: R19.7 Diarrhea, unspecified (principal)
CPT/HCPCS: 82272; 87507; G0328

== ENCOUNTER → 2021-04-02 10:14 | Outpatient (CLI) | payer OTHER, SELFPAY ==
[2021-04-02 12:01] LABS: Coronavirus 19 IgG Antibody Positive (Negative); Coronavirus 19 IgM Antibody Negative (Negative)
== END ==
PROVIDERS: Visit Provider Internal Medicine
DX: Z20.822 Contact with and (suspected) exposure to COVID-19 (principal); U07.1 COVID-19
CPT/HCPCS: 86328

== ENCOUNTER → 2021-04-09 08:05 | Outpatient (CLI) | payer OTHER, SELFPAY ==
[2021-04-09 08:09] LABS: Adenovirus F 40/41, stool Not Detected (NotDetected); Astrovirus Not Detected (NotDetected); Campylobacter Not Detected (NotDetected); Clostridium Difficile A/B, PCR Not Detected (NotDetected); Cryptosporidium Not Detected (NotDetected); Cyclospora Cayetanesis Not Detected (NotDetected); Entamoeba histolytica Not Detected (NotDetected); Enteroaggregative E coli Not Detected (NotDetected); Enteropathogenic E coli Not Detected (NotDetected); Enterotoxigenic E coli Not Detected (NotDetected); Giardia lamblia Not Detected (NotDetected); Norovirus Not Detected (NotDetected); Plesimonas Shigalloides, PCR Not Detected (NotDetected); Rotavirus A Not Detected (NotDetected); Salmonella, PCR Not Detected (NotDetected); Sapovirus Not Detected (NotDetected); Shiga-like toxin E coli Not Detected (NotDetected); Shigella Enterovasive E coli Not Detected (NotDetected); Vibrio Cholerae Not Detected (NotDetected); Vibrio, PCR Not Detected (NotDetected); Yersinia Entercolitica, PCR Not Detected (NotDetected)
== END ==
LOC: LAB 08:07 → LAB.DROPOF 08:10
PROVIDERS: Visit Provider Internal Medicine
DX: R19.7 Diarrhea, unspecified (principal)
CPT/HCPCS: 87507

== ENCOUNTER → 2021-05-07 15:49 | Outpatient (CLI) | payer OTHER, SELFPAY ==
[2021-05-07 16:40] LABS: Amylase 31 U/L (30-110); Lipase 70 U/L (23-300)
== END ==
PROVIDERS: Visit Provider Internal Medicine
DX: R11.0 Nausea (principal); Z87.19 Personal history of other diseases of the digestive system
CPT/HCPCS: 82150; 83690

== ENCOUNTER → 2021-05-15 09:16 | Outpatient (CLI) | payer OTHER, SELFPAY | PROVIDERS: Visit Provider Surgery | DX: Z01.812 Encounter for preprocedural laboratory examination (principal); Z11.52 Encounter for screening for COVID-19; U07.1 COVID-19; Z13.810 Encounter for screening for upper gastrointestinal disorder; Z12.11 Encounter for screening for malignant neoplasm of colon | CPT/HCPCS: U0003 ==

== ENCOUNTER → 2021-05-29 09:12 | Outpatient (CLI) | payer OTHER, SELFPAY | PROVIDERS: Visit Provider Surgery | DX: Z20.822 Contact with and (suspected) exposure to COVID-19 (principal) | CPT/HCPCS: C9803; U0003; U0005 ==

== ENCOUNTER 2021-05-31 09:54 | Day surgery (SDC) | payer OTHER, SELFPAY ==
[2021-05-09 14:33] VITALS: BMI 34.5
[2021-05-31] VITALS (7 sets, daily range): BP systolic 96–144; BP diastolic 56–75; PULSE 65–88; RESP 16–20; TEMP 36.1–36.8; O2SAT 97–98
--- NOTE | 2021-05-31 12:17 | [facility].SCOPE ---
- Procedure: Date: 05/31/21 Patient Date of :: 1960 Procedure Performed:: Esophagogastroduodenoscopy with biopsy Colonoscopy with biopsy Indications:: Gastroesophageal reflux History of colon polyps Diverticulosis Prostate asymmetry Performing Provider:: Trever Briceno MD Referring Provider:: . Sedation:: Monitored anesthesia care Procedure:: After informed consent was obtained the patient was taken to the endoscopy suite. Sedation ensued after the patient was transferred to the left lateral decubitus position. Pulse, blood pressure, and oxygen saturation were monitored throughout the procedure. The endoscope was advanced beyond the duodenal bulb. Retroflexion within the gastric lumen was accomplished. The gastroscope was carefully removed. Digital rectal exam revealed no significant abnormality. The colonoscope was placed in position. The entire colon was evaluated. The colonoscope was carefully removed and the patient was transferred to recovery in stable condition. Please see findings and specimens below for detail. Findings:: Gastroesophageal junction at 42 cm Mild candidal esophagitis Moderate patchy gastritis Gastric cardia polyp Poor bowel preparation colonoscopy Hemorrhoidal cushions/tags Mild prostatic nodularity Scattered AVMs Focal lobulated colorectal mucosal inflammation between 10 and 15 cm Specimens:: Antral biopsy Multiple biopsies of mid gastric body (area of increased inflammation) Gastric cardia polyp Multiple biopsies of colorectal inflammation between 10 and 15 cm Recommendations:: Diflucan ordered Repeat colonoscopy approximately 1 year secondary to history of polyps and limitations in visualization (poor prep) Follow-up pending pathology Complications:: No immediate Estimated blood obtained (mL): 1
== END 2021-05-31 13:04 | disposition home or self-care (01) ==
LOC: OUTP 09:55
PROVIDERS: PCP Internal Medicine; Visit Provider Surgery
PROC: 0DJ08ZZ Inspection of Upper Intestinal Tract, Via Natural or Artificial Opening Endoscopic (ICD-10-PCS; CPT 43235; principal; 2021-05-31 11:30)
DX: K64.0 First degree hemorrhoids (principal); N40.0 Benign prostatic hyperplasia without lower urinary tract symptoms; Z12.11 Encounter for screening for malignant neoplasm of colon; K55.20 Angiodysplasia of colon without hemorrhage; K63.89 Other specified diseases of intestine; B37.81 Candidal esophagitis; K31.7 Polyp of stomach and duodenum; Z86.010 Personal history of colon polyps; Z87.19 Personal history of other diseases of the digestive system; I10 Essential (primary) hypertension; Z79.82 Long term (current) use of aspirin; Z79.899 Other long term (current) drug therapy
CPT/HCPCS: 45380; 43239

== ENCOUNTER → 2021-09-11 10:41 | Outpatient (CLI) | payer OTHER, SELFPAY ==
[2021-09-11 11:48] LABS: Blood Urea Nitrogen 14 mg/dl (9-20); Estimated Glomerular Filt Rate 86 ml/min (>60); GFR (African American) 104 ML/MIN (>60)
== END ==
PROVIDERS: Visit Provider Internal Medicine
DX: R10.9 Unspecified abdominal pain (principal); K29.70 Gastritis, unspecified, without bleeding; R11.0 Nausea
CPT/HCPCS: 36415; 82565; 84520

== ENCOUNTER → 2021-09-12 08:26 | Outpatient (CLI) | payer OTHER, SELFPAY ==
--- NOTE | 2021-09-12 08:30 | CT_ITS ---
PROCEDURE: CT ABDOMEN PELVIS WO/W CON CLINICAL INDICATION: ABD PAIN,GASTRITIS,NAUSEA COMPARISON: CT ABDPELW CT abdomen pelvis w con from 04/17/2018 TECHNIQUE: IV Contrast: 75ML Isovue 370 Oral Contrast None Axial images obtained with sagittal and coronal reformats. All CT scans at the facility use one or more dose reduction, viz: automated exposure control, ma/kV adjustment per patient size (including targeted exams where dose is matched to indication, i.e. head), or iterative reconstruction technique. FINDINGS: LOWER THORAX: Mild thickening of the pericardium posteriorly measuring approximately 10 mm. Radiology splenic masses ABDOMEN & PELVIS: The liver has an unremarkable appearance. No radiopaque gallstones. The adrenal glands are unremarkable. The spleen is enlarged. There is an irregular solid appearing splenic mass which does not appear hypervascular. This lesion has markedly increased in size. The mass occupies most of the spleen measuring up to 12 cm cephalad caudad, 10 cm transverse, and 11 cm AP. The spleen itself measures 16 cm AP, 12 cm transverse, and 13 cm cephalad caudad. There is some haziness of the fat within the splenic hilum with suggestion of the mass extending beyond the splenic capsule at the splenic hilum. There is compression upon the lateral aspect of the body of the stomach by the enlarged spleen/mass. The fat plane between the splenic mass in the greater curvature of the stomach is somewhat infiltrated which could be due to involvement of the adventitia. There is mild haziness of the peripancreatic fat at the tail the pancreas. No peripancreatic effusion evident. No renal or ureteral calculi. No abdominal or retroperitoneal adenopathy. No intestinal obstruction or free air. There is mild amount of retained colonic feces in the cecal region. No evidence of appendicitis or diverticulitis. No pelvic mass. Small amount fluid is present in the pelvis. Degenerative changes are present in the hips. No acute bony anomaly. IMPRESSION: Large the irregular hypodense splenic mass with splenomegaly. Malignant neoplasm is considered. Differential diagnosis would include lymphoma, metastasis, angiosarcoma sarcoma, and malignant fibrous histiocytoma. MRI of the spleen with liver/splenic protocol suggested. There is suggestion of invasion into the splenic hilum and possibly the adventitia of the stomach. There is moderate compression upon the lateral aspect of the body of the stomach in the fundus. Haziness in the peripancreatic region at the pancreatic tail. Mild pancreatitis is considered. Dictated by: Eriberto Enciso MD 09/13/2021 10:21 Eriberto Enciso MD in [place] 09/13/2021 10:21
== END ==
PROVIDERS: PCP Internal Medicine; Visit Provider Internal Medicine
DX: R10.9 Unspecified abdominal pain (principal); K29.70 Gastritis, unspecified, without bleeding
CPT/HCPCS: 74178; Q9967

== ENCOUNTER → 2021-09-18 07:50 | Outpatient (CLI) | payer OTHER, SELFPAY ==
--- NOTE | 2021-09-18 07:51 | MR_ITS ---
FINAL REPORT TECHNIQUE: Multiplanar imaging was obtained through the abdomen, prior to and after intravenous administration of contrast. CLINICAL HISTORY: Liver/splenic protocol. ABNORMAL CT SCAN 09-12. FINDINGS: Abdominal MRI exam was obtained to better characterize the known abnormality within the spleen. Heterogeneous signal abnormality is identified within the spleen. This abnormality appears to represent a solid lobular mass with 3 dominant components. In aggregate, the mass measures proximally 14.2 x 10.7 cm. On the T2-weighted images, there is some mild fluid signal identified at the margin of the mass, particularly at the capsular margin laterally. On the pre-and post infusion images, the mass appears to mildly but heterogeneously enhance. There are 2 gallstones seen within the dependent portion of the gallbladder. IMPRESSION: 1. Unusual, heterogeneous solid splenic mass, as described. Neoplasia such as lymphoma cannot be excluded. Further characterization with PET scan is recommended prior to any attempt at biopsy. Authenticated by Raul Fofana MD on 09/18/2021 01:16:37 PM [facility]
== END ==
PROVIDERS: PCP Internal Medicine; Visit Provider Surgery
DX: R10.9 Unspecified abdominal pain (principal)
CPT/HCPCS: 74183; A9576

== ENCOUNTER → 2021-10-26 13:44 | Outpatient (CLI) | payer OTHER, SELFPAY ==
--- NOTE | 2021-10-26 | CA_ITS ---
APPROVED REPORT EXAM: Comprehensive 2D, Doppler, and color-flow Echocardiogram Vamp Liner: Stephaine Larsen RVT Ht: 5 ft 9 in Wt: 234lbs BSA: 2.21 BP: 146/92 mmHg Indications: B-CELL LYMPHOMA, PRE CHEMO ECHO,HTN,GERD 2D Dimensions LVOT 2.29 cm (M/F) 1.5-2.5 LA Volume 34.90 mL LA Volume Index 15.79 mL/m2 (M/F) 16-34 M-Mode Dimensions RVDd 2.42 cm (0.9-2.6) LA Diam 4.73 cm (1.9-4.0) LVDd 5.44 cm (3.5-5.7) Ao Diam 3.41 cm (2.0-3.7) LVDs 3.31 cm (3.5-5.7) IVSd 1.06 cm (0.6-1.1) PWd 0.76 cm (0.6-1.1) EF (Teich) 69.00% FS 39.20% EDV (Teich) 143.70 mL TAPSE 2.51 (<1.7) ESV (Teich) 44.50 mL LV Diastology E Decel Time 243.00 (160-240 msec) E/A Ratio 1.1 MED E' 3.40 (< 7 cm/sec) E'/MED E' Ratio 29.32 (>14) LAT E' 6.30 (<10 cm/sec) E/LAT E' Ratio 15.83 (>14) Aortic Valve AI PHT 423.00 ms AO Peak GR. 7.50 mmHg Mitral Valve MV E Max Dank. 100.00 (40-130 cm/s) MV A Velocity 92.00 (40-130 cm/s) E/A Ratio 1.08 MV Decel. Time 243.00 (160-240 ms) MV PHT 71.00 ms Pulmonary Valve PV Peak Velocity 103.00 (50-150 cm/s) Tricuspid Valve TR P. Velocity 266.00 cm/s RAP Estimate 10.00 mmHg RVSP 38.20 mmHg Left Ventricle Left atrium is mildly enlarged, left ventricle is normal size, mild concentric left ventricular hypertrophy, visually estimated ejection fraction approximately 55% with no regional wall motion abnormality. Diastolic parameters are inconclusive in the study. Right Ventricle Right atrium and right ventricle are mildly enlarged with normal contractility. Aortic Valve Aortic valve is thickened and calcified without aortic stenosis, there is moderate aortic insufficiency. Mitral Valve Mitral valve leaflets are minimally thickened, there is no mitral stenosis, there is mild mitral regurgitation. Tricuspid Valve Tricuspid valve grossly normal, there is mild tricuspid regurgitation, calculated right ventricular systolic pressure 38 mmHg. Pulmonic Valve Pulmonic valve is poorly visualized. Great Vessels Aortic root is normal size. Inferior vena cava normal size with normal inspiratory collapse. Pericardium No significant pericardial effusion noted. Conclusion 1. Normal left ventricular size, mild concentric left ventricular hypertrophy, visually estimated ejection fraction 55% with no regional wall motion abnormality, diastolic parameters are inconclusive. 2. Thickened and calcified aortic valve without aortic stenosis, there is moderate aortic insufficiency. 3. Mild mitral and tricuspid regurgitation, calculated right ventricular systolic pressure 38 mmHg. 4. No significant pericardial effusion. 5. Inferior vena cava is normal size with normal inspiratory collapse. Electronically signed by : Tae Keller MD 10/26/2021 15:42:55
== END ==
PROVIDERS: PCP Internal Medicine; Visit Provider Internal Medicine Hematology & Oncology
DX: D48.7 Neoplasm of uncertain behavior of other specified sites (principal); R16.1 Splenomegaly, not elsewhere classified; R19.09 Other intra-abdominal and pelvic swelling, mass and lump; Z80.0 Family history of malignant neoplasm of digestive organs
CPT/HCPCS: 93306

== ENCOUNTER → 2023-01-13 14:32 | Outpatient (CLI) | payer OTHER, SELFPAY | PROVIDERS: PCP Internal Medicine; Visit Provider Internal Medicine | DX: R40.0 Somnolence (principal); R06.83 Snoring; E66.9 Obesity, unspecified; G47.33 Obstructive sleep apnea (adult) (pediatric) | CPT/HCPCS: 95806 ==

== ENCOUNTER → 2023-08-27 14:02 | Outpatient (CLI) | payer OTHER, SELFPAY ==
--- NOTE | 2023-08-27 14:02 | ECG_ITS ---
APPROVED REPORT Exam: Resting ECG HR:77 bpm ECG Measurements Heart Rate 77 AXES FL 172 P 29 QRSd 102 QRS -17 QT 346 T 47 QTc 378 Conclusion SINUS RHYTHM NORMAL ECG UNCONFIRMED REPORT Electronically signed by : Ashkan Raymundo MD 08/28/2023 14:49:08
[2023-08-27 14:15] LABS: Microscopic, Urine URINE MICROSCOPIC (MICROSCOPIC)
[2023-08-27 14:47] LABS: Basophils # 0.1 K/mm3 (0-0.2); Basophils % 0.7 % (0.1-2.0); Eosinophils # 0.3 K/mm3 (0.0-0.4); Eosinophils % 2.8 % (0.1-12.0); Hematocrit 48.6 % (42.0-52.0); Hemoglobin 16.4 g/dL (14.1-18.0); Lymphocytes # 2.9 K/mm3 (0.7-4.5); Lymphocytes % 28.1 % (10-50); Mean Corpuscular HGB Conc 33.7 g/dL (31.8-35.4); Mean Corpuscular Hemoglobin 32.3 pg (27.0-31.2); Mean Corpuscular Volume 95.8 fl (80-94); Mean Platelet Volume 8.4 fl (7.4-10.4); Monocytes # 0.9 K/mm3 (0.1-1.0); Monocytes % 8.3 % (1.7-9.3); Neutrophils # 6.3 K/mm3 (1.8-7.8); Platelet Count 376 K/mm3 (142-424); Red Blood Count 5.07 M/mm3 (4.60-6.20); Red Cell Distribution Width 13.1 % (11.5-17.5); White Blood Count 10.5 K/mm3 (4.8-10.8)
[2023-08-27 14:48] LABS: Appearance,Urine CLEAR (Clear); Bilirubin,Urine Negative (Negative); Blood, Urine Negative (Negative); Color,Urine YELLOW (Yellow); Glucose,Urine (UA) Negative (Negative); Ketones,Urine Negative (Negative); Leukocyte Esterase,Urine Negative (Negative); Nitrate,Urine Negative (Negative); PH,Urine 5.5 (5.0-8.5); Protein,Urine Negative (Negative); Specific Gravity, Urine >= 1.030 (1.005-1.030); Urobilinogen,Urine 0.2 EU/dl (0.2)
[2023-08-27 14:54] LABS: Blood Urea Nitrogen 14 mg/dl (9-20); Carbon Dioxide 23 mmol/L (22.0-30.0); Chloride 106 mmol/L (98-107); Estimated Glomerular Filt Rate 85 ml/min (>60); GFR (African American) 103 ML/MIN (>60); Glucose 123 mg/dl (74-100); Sodium 136 mmol/L (136-145)
[2023-08-27 14:55] LABS: Anion Gap 11.4 mEq/L (5-15); Potassium 4.4 mmoL/L (3.5-5.1)
[2023-08-27 15:39] LABS: Bacteria,Urine Trace /lpf; Squamous Epithelial Cell,Urine Occasional #/hpf (0-5)
== END ==
PROVIDERS: PCP Internal Medicine; Visit Provider Surgery
DX: Z01.818 Encounter for other preprocedural examination (principal); K43.9 Ventral hernia without obstruction or gangrene
CPT/HCPCS: 36415; 80048; 81001; 85025; 93005

== ENCOUNTER 2023-09-04 09:41 | Day surgery (SDC) | payer OTHER, SELFPAY ==
[2023-09-03 08:35] VITALS: BMI 39.5
[2023-09-04] VITALS (10 sets, daily range): BP systolic 128–145; BP diastolic 68–89; PULSE 72–88; RESP 15–18; TEMP 36.4–43; O2SAT 90–96
[2023-09-04] MEDS: LACTATED RINGERS 1000ML 1,000 ML 100 ML IV (09:55)
--- NOTE | 2023-09-04 09:57 | EXP.ANES.CKL ---
[facility] Disclaimer: The information contained in this section may have been updated after the patient was seen, as this information can be updated by other users. Medical History (Updated 09/01/23 @ 14:09 by Ariana Jean Baptiste RN) Benign prostate hyperplasia History of gastroesophageal reflux (GERD) Spleen cancer Surgical History (Updated 09/01/23 @ 14:08 by Ariana Jean Baptiste RN) History of colonoscopy Hx of splenectomy Family History (Updated 09/01/23 @ 14:10 by Ariana Jean Baptiste RN) Other Family history of cancer Social History (Updated 09/01/23 @ 14:11 by Ariana Jean Baptiste RN) Smoking Status: Never smoker alcohol intake: never substance use type: denies use current occupational status: retired Travel in the last 8 weeks: None housing: house caffeine: Yes [facility] Anesthesia Checklist Patient Identification Patient Identification: Arm Band and Verbal (Name & ) Structural Data Admitted From: Home Planned Operative Procedure/s: Lap. incisional hernia repair Consent for Planned Operative Procedure(s) Verified: Yes NPO Status Verified Time NPO: 00:00 Chart Verification Results Verified: CBC and BMP Additional verifications Anesthesia Reactions: No Airway Assessment Mallampati Score:: Class IV C-Spine Mobility Assessed: Yes TMJ Mobility Assessed: Yes Dentition: Good Dentition Neurological Assessment Level of Consciousness: Awake Hx Seizures: No Numbness or tingling in extremities: No Anesthesia Plan Anesthesia Risk discussed: Yes Anesthesia Plan: Verified ASA Class: II Anesthesia Type: General
[2023-09-04] MEDS: CEFAZOLIN SODIUM 2 GM in 0.9 % SODIUM CHLORIDE 100 ML IV (11:25)
[2023-09-04] MEDS: LIDOCAINE 1% 20ML MDV 20 ML (11:44)
--- NOTE | 2023-09-04 12:59 | P.OP_ITS ---
Date of procedure: 09/04/23 Pre-op Diagnosis:: Incisional ventral hernia Post-op Diagnosis:: Same Procedure performed:: Open repair of incisional ventral hernia with 8 cm Ventralex mesh Surgeon:: Trever Briceno MD [employer] MEMBER:: Tu Villarreal Anesthesia: GETA Estimated blood loss (mL): 25 Operative findings:: Dominant 2 cm defect above umbilicus at inferior margin of incision Profound adhesions along anterior abdominal wall including adhesions to omentum, small bowel, and colon No obvious colonic or small bowel injury visualized Additional smaller Colombian cheese defects proximal to primary defect Combination of primary closure along the superior margin with #2 Novafil in addition to 8 cm Ventralex at the primary defect Operative note:: After informed consent was obtained the patient was taken to the operating room and placed in the supine position. General anesthesia was induced and his abdomen was prepped and draped in a sterile fashion. After infiltration with local anesthetic an incision was made overlying the palpable defect (along prior incision just above umbilicus). A combination of sharp dissection, blunt dissection, and electrocautery was utilized to transect through the deeper subcutaneous tissue. A dominant 2 cm defect was encountered. Sharp dissection and electrocautery was utilized to transect the hernia sac free and it was passed off for pathologic evaluation. Profound dense adhesions were then noted throughout the region with anterior abdominal wall adhesed to the underlying omentum, small bowel, and colon. Careful sharp and blunt dissection was utilized to free and margin of tissue to allow for closure. No obvious injury to small bowel or colon was seen. Superior to this dominant/primary defect was palpable evidence of smaller [place] cheese defects along the prior incision. The incision was extended cephalad through these small defects to allow for primary closure. #2 Novafil was utilized to reapproximate the superior margin fascia (the [place]ian cheese defect area). An 8 cm Ventralex mesh was then secured in position at the inferior primary defect with interrupted Ethibond. The 0 Ethibond was also utilized to create a primary overlay closure. The wound was thoroughly irrigated. Skin was then closed with darwin and dressings were applied. The patient was transferred to recovery in stable condition. Condition: stable Disposition: PACU Specimens:: Hernia sac Complications:: No immediate
--- NOTE | 2023-09-04 13:09 | EXP.ANES.I ---
[facility] Anesthesia Record Part I Anesthesia Record I Intake, IV Amount: 1,100 Hydration: Adequate Estimated blood loss (mL): 10 Urine output (mL): 0 Blood Products used (#): none Blood Pressure: 145/76 SaO2: 90 Pulse Rate: 72 Airway Patency: Patent Respiratory Rate: 16 Temperature: 98.9 F Patient is:: Drowsy and Stable Stable to PACU at:: 13:00
[2023-09-04] MEDS: HYDROMORPHONE 2MG/ML SYRINGE 0.5 MG IV (13:15)
--- NOTE | 2023-09-04 13:38 | SUR.PHASEI ---
1330- detailed report called to juwan katz in post op 1331- pt left in stable condition with juwan katz in post op. VSS
--- NOTE | 2023-09-04 13:50 | EXP.ANES.II ---
[facility] Anesthesia Record Part II Anesthesia Record Part II Discharge Time: 13:30 Destination: Surgical Day Care (OP Surgery) PACU nurse assessment reviewed?: Yes Patient Condition:: Good Anesthesia Complications:: None Swallowing reflex intact?: Yes Airway Patency: Patent Cyanosis?: No Blood Pressure: 141/75 SaO2: 94 Respiratory Rate: 16 Pulse Rate: 82 Temperature: 98.9 F Mental Status: Alert & Oriented Pain level:: 2 Nausea and/or vomitting:: None Intake, IV Amount: 0 Hydration: Adequate
== END 2023-09-04 14:20 | disposition home or self-care (01) ==
PROVIDERS: PCP Internal Medicine; Visit Provider Surgery
PROC: 0WQF4ZZ Repair Abdominal Wall, Percutaneous Endoscopic Approach (ICD-10-PCS; CPT 49591; principal; 2023-09-04 11:15)
DX: K43.2 Incisional hernia without obstruction or gangrene (principal); K66.0 Peritoneal adhesions (postprocedural) (postinfection)
CPT/HCPCS: 49591; 96374; C1781; J2405

== ENCOUNTER 2024-02-17 09:38 | Emergency (ER) | payer OTHER, SELFPAY ==
[2024-02-17 09:50] VITALS: BP 139/83; PULSE 57; RESP 18; TEMP 36.4; O2SAT 95; BMI 39.0
--- NOTE | 2024-02-17 10:09 | EXP.UTC ---
Discharge Plan Disposition Patient Disposition: Home, Self-Care Condition: Good Prescriptions Prescriptions: No Action tamsulosin 0.4 mg capsule 0.4 mg PO DAILY propranolol 80 mg Capsule,Extended Release 24 Hr 80 mg PO HS omeprazole 20 MG tablet,delayed release (DR/EC) 20 mg PO DAILY Referrals Follow up/Referrals: Moreno Witt MD [Primary Care Provider] - See instructions Activity Restrictions/Add. Instructions Additional Instructions/Restrictions: Drink a Gatorade to replace fluid/electrolytes. If symptoms persist or worsen follow up with PCP or return to [facility]. Viral Gastroenteritits Drink extra fluids with and between meals. If you have difficulty drinking, try very small amounts of water or suck on ice chips. ? Avoid fruit juices, as these do not replace minerals and can actually increase diarrhea. ? Children and adults can use sports drinks to replenish electrolytes. Younger children and infants should use products formulated for children, like oral rehydration solutions. ? Eat food in small amounts and let your stomach recover. ? Get lots of rest. You may feel tired or weak. ? No greasy or fried foods for the next 24-48 hours BRAT diet Bananas Rice Apples and [place] ? Make sure to drink plenty of liquids ? Return if needed ? Straight to ER if any life threatening symptoms ? Zofran as prescribed ? You was given an outpatient order for diarrhea panel, please collect specimen and bring back to outpatient lab then call back to the [facility] or follow up with family doctor for results ? Follow up with family doctor in the next 48-72 hours if no improvement or any worsening of symptoms Clinical Impressions Clinical Impression: Gastroenteritis Instructions Patient Instructions: DI for Nausea -- Adult, DI for Diarrhea and Traveler's Diarrhea -- Adult Discharge ED Provider: Jeannie Dunham [facility] [place] HPI General Stated complaint: diarrhea, weakness, abd pain Mode of Arrival: Ambulatory Source of Information: Patient Limitations: No Limitations Time Seen by Provider: 02/17/24 10:09 Description of Symptoms (Recalled from Triage Doc. by RN): Pt's symptoms are nausea, diarrhea, fatigue, and stomach cramping. HEENT Symptoms (Recalled from RN notes): No Resp Symptoms (Recalled from RN notes): No Skin Symptoms (Recalled from RN notes): No MS Symptoms (Recalled from RN notes): No Functional Status (Recalled from RN notes): n/a History of Present Illness Provider Complaint: Pt reports having some nausea since Friday and loose stool x3 last night. He took Zofran for his nausea and Imodium for the diarrhea. He reports that he does feel a little better. Related Data Home Medications Medication Instructions Recorded Confirmed omeprazole 20 mg tablet,delayed 20 mg PO DAILY acid reflux 04/17/18 02/17/24 release tamsulosin 0.4 mg capsule 0.4 mg PO DAILY URINATION 05/09/21 02/17/24 propranolol 80 mg capsule,24 80 mg PO HS 09/01/23 02/17/24 hr,extended release Allergies Allergy/AdvReac Type Severity Reaction Status Date / Time Sulfa (Sulfonamide Allergy Severe Palpitation Verified 02/17/24 10:08 Antibiotics) s Worker's Comp Is this a Worker's Comp case?: No [facility] Disclaimer: The information contained in this section may have been updated after the patient was seen, as this information can be updated by other users. Medical History (Updated 02/17/24 @ 10:25 by Jeannie Dunham APRN) Spleen cancer Benign prostate hyperplasia History of gastroesophageal reflux (GERD) Surgical History History of hernia repair Hx of splenectomy History of colonoscopy Family History Other Family history of cancer Social History Smoking Status: Never smoker alcohol intake: never substance use type: denies use current occupational status: retired Travel in the last 8 weeks: None housing: house caffeine: Yes ROS Obtained: Yes All systems reviewed & no additional complaints except as documented Constitutional Constitutional: Reports system reviewed and no additional complaints, except as documented and Reports malaise Eyes Eyes: Reports system reviewed and no additional complaints, except as documented ENT Ears, Nose, Mouth, and Throat: Reports system reviewed and no additional complaints, except as documented Cardiovascular Cardiovascular: Reports system reviewed and no additional complaints, except as documented Respiratory Respiratory: Reports system reviewed and no additional complaints, except as documented Gastrointestinal Gastrointestingal: Reports system reviewed and no additional complaints, except as documented, cramping, diarrhea and nausea Genitourinary Male Genitourinary: Reports system reviewed and no additional complaints, except as documented Musculoskeletal Musculoskeletal: Reports system reviewed and no additional complaints, except as documented Integumentary/Breasts Skin/Breast: Reports system reviewed and no additional complaints, except as documented Neurologic Neurologic: Reports system reviewed and no additional complaints, except as documented Endocrine Endocrine: Reports system reviewed and no additional complaints, except as documented Hematologic/Lymphatic Henatologic/Lymphatic: Reports system reviewed and no additional complaints, except as documented Allergic/Immunologic Allergic/Immunologic: Reports system reviewed and no additional complaints, except as documented Physical Exam General General appearance: alert and in no apparent distress Head Head exam: atraumatic and normocephalic Eye Eye exam: Present normal appearance ENT ENT exam: Present normal exam Neck Neck exam: Present normal inspection Chest Chest inspection: Present normal inspection and symmetric chest wall rise Respiratory Respiratory exam: Present normal lung sounds bilaterally Cardiovascular Cardiovascular exam: Present regular rate and normal rhythm Abdominal Exam Abdominal exam: Present soft and hyperactive bowel sounds Extremities Exam Extremities exam: Present normal inspection Back Exam Back exam: Present normal inspection Neurological Exam Neurological exam: Present alert and oriented X3 Psychiatric Psychiatric exam: Present normal affect and normal mood Skin Skin exam: Present warm, dry and intact Lymphatic Lymphatic Findings: no adenopathy Medical Decision Making Jarred Inquiry Pt receiving controlled substance: No Jarred was queried for this patient: No Vital Signs: 02/17/24 09:50 Temperature 97.6 F Temperature Source Oral Pulse Rate [Right Radial] 57 L Respiratory Rate 18 Blood Pressure [Right Arm] 139/83 Blood Pressure Mean [Right Arm] 101 Blood Pressure Source [Right Arm] Automatic Cuff Blood Pressure Position [Right Arm] Sitting 02 Sat by Pulse Oximetry 95 Oxygen Delivery Method Room Air Lab Data Lab results reviewed: Yes I reviewed the patient's lab results. Orders (Tests/Meds): ORDERS Category Date Time Status Urine Culture Stat Micro 02/17/24 09:57 Ordered
[2024-02-17 10:10] LABS: Apearance,Urine Clear (Clear); Bilirubin,Urine 1+ (Negative); Blood, Urine Negative (Negative); Color,Urine Dark Yellow (Yellow); Glucose,Urine (UA) Negative (Negative); Ketones,Urine Negative (Negative); Protein,Urine 1+ (Negative); UTC Leukocyte Esterase,Urine Negative (Negative); UTC Nitrate,Urine Negative (Negative); Urobilinogen,Urine 0.2 EU/dl (0.2)
[2024-02-17 10:28] VITALS: BP 139/83; PULSE 57; RESP 18; TEMP 36.6; O2SAT 95
== END 2024-02-17 10:28 | disposition home or self-care (01) ==
PROVIDERS: Emergency Provider Nurse Practitioner Family; PCP Internal Medicine
DX: R10.819 Abdominal tenderness, unspecified site (principal); K52.9 Noninfective gastroenteritis and colitis, unspecified; R11.0 Nausea; R53.83 Other fatigue
CPT/HCPCS: 81003; 99203; 99212; G0463

== ENCOUNTER 2024-06-11 10:23 | Outpatient (CLI) | payer OTHER, SELFPAY ==
[2024-06-11 10:27] LABS: Adenovirus F 40/41, stool Not Detected (NotDetected); Campylobacter Not Detected (NotDetected); Clostridium Difficile A/B, PCR Not Detected (NotDetected); Cryptosporidium Not Detected (NotDetected); Cyclospora Cayetanesis Not Detected (NotDetected); Entamoeba histolytica Not Detected (NotDetected); Enteroaggregative E coli Not Detected (NotDetected); Enteropathogenic E coli Not Detected (NotDetected); Enterotoxigenic E coli Not Detected (NotDetected); Giardia lamblia Not Detected (NotDetected); Norovirus Not Detected (NotDetected); Plesimonas Shigalloides, PCR Not Detected (NotDetected); Rotavirus A Not Detected (NotDetected); Salmonella, PCR Not Detected (NotDetected); Sapovirus Not Detected (NotDetected); Shiga-like toxin E coli Not Detected (NotDetected); Shigella Enterovasive E coli Not Detected (NotDetected); Vibrio Cholerae Not Detected (NotDetected); Vibrio, PCR Not Detected (NotDetected); Yersinia Entercolitica, PCR Not Detected (NotDetected)
[2024-06-11 14:35] LABS: Astrovirus Detected (NotDetected)
== END 2024-06-11 23:59 | disposition home or self-care (01) ==
LOC: LAB 10:24
PROVIDERS: PCP Internal Medicine; Visit Provider Internal Medicine
DX: A09 Infectious gastroenteritis and colitis, unspecified (principal)
CPT/HCPCS: 87506

== ENCOUNTER 2024-07-12 13:07 | Outpatient (CLI) | payer OTHER, SELFPAY ==
--- NOTE | 2024-07-12 13:12 | XR_ITS ---
PROCEDURE INFORMATION: Exam: XR Right Shoulder Exam date and time: 07/12/2024 1:13 PM Age: 64 years old Clinical indication: Pain; Shoulder; Right; Additional info: Right shoulder pain and stiffness TECHNIQUE: Imaging protocol: Radiologic exam of the right shoulder. Views: 2 or more views. COMPARISON: No relevant prior studies available. FINDINGS: Bones/joints: Normal. Soft tissues: Normal. IMPRESSION: No acute findings.
== END 2024-07-12 23:59 | disposition home or self-care (01) ==
LOC: RAD 13:08
PROVIDERS: PCP Internal Medicine; Visit Provider Internal Medicine
DX: M77.8 Other enthesopathies, not elsewhere classified (principal)
CPT/HCPCS: 73030

== ENCOUNTER 2024-07-23 07:34 | Outpatient (CLI) | payer OTHER, SELFPAY ==
--- NOTE | 2024-07-23 07:38 | CT_ITS ---
FINAL REPORT CLINICAL HISTORY: HX OF NON-HODGKIN S LYMPHOMA COMPARISON: 09/12/2021 FINDINGS: CT OF THE ABDOMEN AND PELVIS WITH CONTRAST Axial CT images of the abdomen and pelvis were obtained after the administration of IV contrast. Coronal and sagittal reformatted images were also obtained and reviewed. This study was performed with techniques to keep radiation doses as low as reasonably achievable (ALARA). Individualized dose reduction techniques using automated exposure control or adjustment of mA and/or kV according to the patient's size were employed. Abdomen: Mild atelectasis versus scarring is present in the lung bases.. The heart is normal in size. The liver has an unremarkable appearance, without evidence of mass or biliary ductal dilatation. Since the prior CT of 2020 the patient has undergone a splenectomy. No adrenal mass is present. The pancreas has an unremarkable appearance. The kidneys are normal, without evidence of mass or hydronephrosis. The aorta is normal in caliber. There is no free fluid or adenopathy. No mass or abnormal fluid collection is seen. Moderate vascular calcifications are present. Pelvis: The appendix is not well-visualized. An umbilical hernia is present containing fat, as well as a small left inguinal hernia which also contains fat. The urinary bladder is unremarkable. No inflammatory process is seen. There is no evidence of mass or adenopathy. There is no evidence of bowel obstruction. IMPRESSION: No significant mass or adenopathy is identified. Interval splenectomy since the prior exam of August 2021. Reviewed, Interpreted and Dictated by Lew Brandt III, MD Transcribed by Diann Michaud Authenticated and [facility]
[2024-07-23 08:07] LABS: Blood Urea Nitrogen 12 mg/dl (9-20); Estimated Glomerular Filt Rate 97 ml/min (>60); GFR (African American) 118 ML/MIN (>60)
--- NOTE | 2024-07-23 08:27 | CT_ITS ---
FINAL REPORT CLINICAL HISTORY: NON-HODGKINS lymphoma COMPARISON: None FINDINGS: Axial CT images of the chest were obtained with contrast. Coronal and sagittal reformatted images were also obtained. This study was performed with techniques to keep radiation doses as low as reasonably achievable, (ALARA). Individualized dose reduction techniques using automated exposure control or adjustment of mA and/or KV according to the patient's size were employed. There are small and borderline in size hilar and mediastinal nodes present. Cardiomegaly is present as well. No axillary mass or adenopathy is identified. On lung window images, no pulmonary mass or dominant pulmonary nodule is identified. Bilateral patchy opacities are present in the lung macario, favor edema. Several calcified granulomas are noted. IMPRESSION: Multifocal bilateral patchy opacities are present, favor edema. Small and borderline in size hilar and mediastinal nodes. Reviewed, Interpreted and Dictated by Lew Brandt III, MD Transcribed by Diann Michaud Authenticated and [facility]
[2024-07-23] MEDS: IOPAMIDOL-370 (76%);100ML BOTTLE 75 ML IV (08:40)
[2024-07-23] MEDS: SODIUM CHLORIDE 0.9% 10ML SYR (RAD ONLY) 10 ML IV (08:40)
== END 2024-07-23 23:59 | disposition home or self-care (01) ==
LOC: RAD 07:34
PROVIDERS: PCP Internal Medicine; Visit Provider Internal Medicine Hematology & Oncology
DX: Z85.72 Personal history of non-Hodgkin lymphomas (principal)
CPT/HCPCS: 36415; 71260; 74177; 82565; 84520; Q9967

== ENCOUNTER 2024-07-24 15:09 | Emergency (ER) | payer OTHER, SELFPAY ==
[2024-07-24 16:30] VITALS: BP 130/72; PULSE 71; RESP 21; TEMP 37.2; O2SAT 96; BMI 40.3
--- NOTE | 2024-07-24 16:58 | EXP.UTC ---
Discharge Plan Disposition Patient Disposition: Home, Self-Care Condition: Good Prescriptions Prescriptions: New azithromycin 250 mg tablet See Rx Instructions .ROUTE .COMPLEX Qty: 6 0RF Rx Instructions: For 250 mg dose pack: take 500 mg today (day 1), then 250 mg for 4 days (days 2-5) benzonatate 100 mg capsule 100 mg PO TID PRN (Reason: cough) Qty: 30 0RF methylprednisolone [Medrol (Antolin)] 4 mg tablets,dose pack See Rx Instructions .ROUTE .COMPLEX 6 Days Qty: 21 0RF Rx Instructions: 4 mg orally ;Medrol dose taper antolin No Action meloxicam 15 mg tablet 15 mg PO DAILY Patient Comments: TAKE ONE TABLET BY MOUTH EVERY DAY --TAKE WITH FOOD-- tamsulosin 0.4 mg capsule 0.4 mg PO DAILY Patient Comments: TAKE ONE CAPSULE BY MOUTH EVERY DAY AT BEDTIME propranolol 80 mg capsule,extended release 24 hr 80 mg PO DAILY Patient Comments: TAKE ONE CAPSULE BY MOUTH EVERY DAY AT BEDTIME omeprazole 20 mg capsule,delayed release(DR/EC) 20 mg PO DAILY Patient Comments: TAKE ONE CAPSULE BY MOUTH EVERY DAY FOR acid reflux propranolol 120 mg capsule,extended release 24 hr 120 mg PO DAILY Patient Comments: TAKE ONE CAPSULE BY MOUTH EVERY DAY FOR BLOOD PRESSURE AND tremor Referrals Follow up/Referrals: Moreno Witt MD [Primary Care Provider] - See instructions Activity Restrictions/Add. Instructions Additional Instructions/Restrictions: Take medication as prescribed. Increase fluids and rest. Follow up with PCP/UTC if symptoms persist or worsen. If you become short of air, go to the ER. Clinical Impressions Clinical Impression: Acute lower respiratory tract infection Instructions Patient Instructions: Acute Bronchitis Print Language Print Language: Palestinian Discharge ED Provider: Jeannie Dunham [facility] [place] General Stated complaint: sore throat,body aches,DOMINGUEZ,Congestion Mode of Arrival: Ambulatory Source of Information: Patient Limitations: No Limitations Time Seen by Provider: 07/24/24 16:57 Description of Symptoms (Recalled from Triage Doc. by RN): PATIENT C/O SORE THROAT, COUGH, AND LOW-GRADE FEVER THAT STARTED YESTERDAY HEENT Symptoms (Recalled from RN notes): Yes Resp Symptoms (Recalled from RN notes): Yes Skin Symptoms (Recalled from RN notes): No MS Symptoms (Recalled from RN notes): No Functional Status (Recalled from RN notes): WNL History of Present Illness Provider Complaint: Pt reports that he he has not felt well for awhile and then yesterday started having low grade fever with his cough and a sore throat. Related Data Home Medications ?Medication ?Instructions ?Recorded ?Confirmed meloxicam 15 mg tablet 15 mg PO DAILY 07/24/24 07/24/24 omeprazole 20 mg capsule,delayed 20 mg PO DAILY 07/24/24 07/24/24 release propranolol 120 mg capsule,24 120 mg PO DAILY 07/24/24 07/24/24 hr,extended release propranolol 80 mg capsule,24 80 mg PO DAILY 07/24/24 07/24/24 hr,extended release tamsulosin 0.4 mg capsule 0.4 mg PO DAILY 07/24/24 07/24/24 Previous Rx's ?Medication ?Instructions ?Recorded azithromycin 250 mg tablet See Rx Instructions PO .COMPLEX #6 07/24/24 tabs benzonatate 100 mg capsule 100 mg PO TID PRN cough #30 caps 07/24/24 methylprednisolone 4 mg tablets in See Rx Instructions .Route 07/24/24 a dose pack (Medrol (Antolin)) .COMPLEX 6 days #21 tabs Allergies Allergy/AdvReac Type Severity Reaction Status Date / Time Sulfa (Sulfonamide Allergy Severe Palpitation Verified 07/08/24 10:46 Antibiotics) s Worker's Comp Is this a Worker's Comp case?: No [facility] Disclaimer: The information contained in this section may have been updated after the patient was seen, as this information can be updated by other users. Medical History Major depressive disorder Spleen cancer Benign prostate hyperplasia History of gastroesophageal reflux (GERD) Surgical History History of hernia repair Hx of splenectomy History of colonoscopy Family History Other Family history of cancer Social History Smoking Status: Former smoker tobacco type: cigars second hand exposure: No alcohol intake: never counseling given: No substance use type: denies use counseling given: No current occupational status: retired Travel in the last 8 weeks: None adopted: No caregiver/support person: No foster care: No household members: significant other housing: house lives independently: Yes marital status: number of children: 41 number of grandchildren: 2 education level: high school current occupation: retired; worked at [employer] Recent Travel: No sexually active: No caffeine: Yes physical activity: none working smoke detector in home: Yes fire extinguisher in home: Yes carbon monox detector in home: Yes firearms in home: Yes firearms unloaded and locked: Yes do you feel safe at home: Yes victim of physical abuse: No victim of emotional abuse: No victim of sexual abuse: No would you like helpful sources: No ROS Obtained: Yes All systems reviewed & no additional complaints except as documented Constitutional Constitutional: Reports system reviewed and no additional complaints, except as documented and Reports fever(s) Eyes Eyes: Reports system reviewed and no additional complaints, except as documented ENT Ears, Nose, Mouth, and Throat: Reports system reviewed and no additional complaints, except as documented and Reports nasal congestion Cardiovascular Cardiovascular: Reports system reviewed and no additional complaints, except as documented Respiratory Respiratory: Reports system reviewed and no additional complaints, except as documented, Reports change in phlegm color and Reports cough with sputum production Gastrointestinal Gastrointestingal: Reports system reviewed and no additional complaints, except as documented Genitourinary Male Genitourinary: Reports system reviewed and no additional complaints, except as documented Musculoskeletal Musculoskeletal: Reports system reviewed and no additional complaints, except as documented Integumentary/Breasts Skin/Breast: Reports system reviewed and no additional complaints, except as documented Neurologic Neurologic: Reports system reviewed and no additional complaints, except as documented Endocrine Endocrine: Reports system reviewed and no additional complaints, except as documented Hematologic/Lymphatic Henatologic/Lymphatic: Reports system reviewed and no additional complaints, except as documented Allergic/Immunologic Allergic/Immunologic: Reports system reviewed and no additional complaints, except as documented Physical Exam General General appearance: alert and in no apparent distress Head Head exam: atraumatic and normocephalic Eye Eye exam: Present normal appearance ENT ENT exam: Present mucous membranes moist Expanded ENT Exam External ear exam: Present normal external inspection Nasal speculum exam: Bilateral: normal Mouth exam: Present normal external inspection Teeth exam: Present normal inspection Throat exam: Present tonsillar erythema and tonsillomegaly Neck Neck exam: Present normal inspection; Absent lymphadenopathy Chest Chest inspection: Present normal inspection and symmetric chest wall rise Respiratory Respiratory exam: Present other Expanded Respiratory Exam Location: Left: rales, Right: rales and Lower: rales Cardiovascular Cardiovascular exam: Present regular rate and normal rhythm Abdominal Exam Abdominal exam: Present soft Extremities Exam Extremities exam: Present normal inspection Back Exam Back exam: Present normal inspection Neurological Exam Neurological exam: Present alert and oriented X3 Psychiatric Psychiatric exam: Present normal affect and normal mood Skin Skin exam: Present warm, dry and intact Lymphatic Lymphatic Findings: no adenopathy Medical Decision Making Medical Records Screening: Per USPSTF and CDC recommendations, given the prevalence of disease in our region, it is our hospital?s policy to screen for HIV and viral Hepatitis for all patients aged 18 and over and those with ongoing risk factors. Jarred Inquiry Pt receiving controlled substance: No Ajrred was queried for this patient: No Vital Signs: 07/24/24 16:30 Temperature 99.0 F Temperature Source Oral Pulse Rate [Left Brachial] 71 Respiratory Rate 21 Blood Pressure [Left Arm] 130/72 Blood Pressure Mean [Left Arm] 91 Blood Pressure Source [Left Arm] Automatic Cuff Blood Pressure Position [Left Arm] Sitting 02 Sat by Pulse Oximetry 96 Oxygen Delivery Method Room Air Lab Data Lab results reviewed: Yes I reviewed the patient's lab results.
[2024-07-24 17:07] VITALS: BP 130/72; PULSE 71; RESP 21; TEMP 37.2; O2SAT 96
[2024-07-24 17:07] LABS: UTC Strep Screen (Rapid) Negative (Negative)
== END 2024-07-24 17:09 | disposition home or self-care (01) ==
PROVIDERS: Emergency Provider Nurse Practitioner Family; PCP Internal Medicine
DX: J22 Unspecified acute lower respiratory infection (principal); R07.0 Pain in throat; R51.9 Headache, unspecified; R09.81 Nasal congestion; R50.9 Fever, unspecified; R05.9 Cough, unspecified
CPT/HCPCS: 87880; 99212; G0381

== ENCOUNTER 2025-01-19 09:20 | Outpatient (CLI) | payer OTHER, SELFPAY ==
--- NOTE | 2025-01-19 09:26 | CT_ITS ---
FINAL REPORT TECHNIQUE: Thin section axial images were obtained from the thoracic inlet through the upper abdomen after intravenous contrast injection. Reconstruction images were obtained from the axial data. Exam was performed using dose reduction technique. CLINICAL HISTORY: .non hodgkins lymphoma COMPARISON: 07/23/2024 FINDINGS: No axillary lymphadenopathy. Small and borderline's mediastinal and hilar lymph nodes are unchanged. The heart is enlarged. There is no pleural or pericardial effusion. There is persistent interlobular septal thickening and patchy groundglass opacities. No suspicious nodules. No acute osseous abnormality. IMPRESSION: Stable small and borderline lymph nodes are nonspecific. Cardiomegaly with interlobular septal thickening and groundglass opacities favored represent edema, although small airway or small vessel disease is not excluded. Reviewed, Interpreted and Dictated by Larisa Thomas MD Transcribed by Eliane Jasso Authenticated and [facility]
--- NOTE | 2025-01-19 09:26 | CT_ITS ---
FINAL REPORT TECHNIQUE: Thin section axial images are obtained through the abdomen and pelvis after intravenous contrast. Reconstruction images were obtained from the axial data. Exam was performed using dose reduction techniques. CLINICAL HISTORY: HX OF NON-HODGKIN S LYMPHOMA COMPARISON: 07/23/2024 FINDINGS: LIVER: Homogeneous. No focal lesion. GALLBLADDER/BILIARY SYSTEM: Gallbladder is present. No gallstones. No biliary dilatation. SPLEEN: Absent PANCREAS: Unremarkable. ADRENALS: Unremarkable. KIDNEYS/URETERS/BLADDER: No mass or hydronephrosis. Several cysts along the inferior right kidney. Unremarkable urinary bladder. GI TRACT: No small bowel obstruction or dilatation. Appendix not seen but no secondary signs of appendicitis. No acute colon abnormality. PELVIC ORGANS: Unremarkable for age. LYMPH NODES/RETROPERITONEUM/MESENTERY: Stable small bilateral inguinal lymph nodes. No lymphadenopathy in the abdomen or pelvis. No abdominal aortic aneurysm. ABDOMINAL WALL: Fat-containing umbilical hernia is unchanged.. FREE FLUID: No ascites. BONES: No acute osseous abnormality. IMPRESSION: No lymphadenopathy. No acute abnormality. Reviewed, Interpreted and Dictated by Larisa Thomas MD Transcribed by Eliane Jasso Authenticated and [facility]
[2025-01-19 10:01] LABS: Blood Urea Nitrogen 13 mg/dl (9-20); Estimated Glomerular Filt Rate 97 ml/min (>60); GFR (African American) 118 ML/MIN (>60)
[2025-01-19] MEDS: IOPAMIDOL-370 (76%);100ML BOTTLE 75 ML IV (10:27)
[2025-01-19] MEDS: SODIUM CHLORIDE 0.9% 10ML SYR (RAD ONLY) 10 ML IV (10:27)
== END 2025-01-19 23:59 | disposition home or self-care (01) ==
LOC: RAD 09:21
PROVIDERS: PCP Internal Medicine; Visit Provider Internal Medicine Hematology & Oncology
DX: I51.7 Cardiomegaly (principal); Z85.72 Personal history of non-Hodgkin lymphomas
CPT/HCPCS: 36415; 71260; 74177; 82565; 84520; Q9967

== ENCOUNTER 2025-02-28 14:09 | Outpatient (CLI) | payer OTHER, SELFPAY ==
--- OUTSIDE RECORDS SUMMARY | 2025-02-28 14:13 | XMS_ITS | Clinical Summary ---
Author Organization [facility] Address [address] [place] [address] Care Team Providers Care Stars Analytical Lead Name Role Phone Moreno Witt MD Primary Care Provider [phone] Allergies Active Allergy Reactions Criticality Noted Date Comments Pneumococcal Vaccines Dizziness Low 10/17/2021 Medications bisoprolol (Zebeta) 5 MG tablet Take 5 mg by mouth 1 (one) time each day. 1 Active tamsulosin (Flomax) 0.4 MG 24 hr capsule Take 0.4 mg by mouth every night. 2 Active lactobacillus (Culturelle Immunity Support) capsule Take 1 capsule by mouth every night. Active loperamide (Imodium) 2 MG capsule Take 2 mg by mouth 4 (four) times a day if needed for diarrhea. Active senna-docusate (Poppy-Colace) 8.6-50 MG tablet Take 1 tablet by mouth 2 (two) times a day if needed for constipation. 30 tablet 1 2 Active metoclopramide (Reglan) 10 MG tablet Take 1 tablet (10 mg total) by mouth 4 (four) times a day (before meals and nightly). 120 tablet 2 Active Misc. Devices (pill splitter) 1 each 1 (one) time each day if needed (to split oxycodone). 1 each 2 Active methocarbamol (Robaxin) 500 MG tablet Take 1 tablet (500 mg total) by mouth 4 (four) times a day. 40 tablet 2 Active enoxaparin (Lovenox) 40 MG/0.4ML solution Inject 0.4 mL (40 mg total) under the skin 1 (one) time each day. 23 each 2 Active acetaminophen (Tylenol) 500 MG tablet Take 1 tablet (500 mg total) by mouth every 6 (six) hours if needed for mild pain. 30 tablet 2 Active oxyCODONE (Roxicodone) 5 MG immediate release tablet Take 1 tablet (5 mg total) by mouth every 4 (four) hours if needed for moderate pain. 18 tablet 2 Active ondansetron ODT (Zofran-ODT) 4 MG disintegrating tablet Take 1 tablet (4 mg total) by mouth every 8 (eight) hours if needed for nausea or vomiting. 10 tablet 2 Active nutritional drink (Boost Plus) liquid liquid Take 237 mL by mouth 3 (three) times a day. 6399 mL 2 2 Active LORazepam (Ativan) 0.5 MG tablet TAKE ONE TABLET BY MOUTH THREE TIMES DAILY NEEDED FOR nerves MAY CAUSE DROWSINESS 2 Active Active Problems Problem Noted Date Diagnosed Date BPH (benign prostatic hyperplasia) 10/16/2021 GERD (gastroesophageal reflux disease) 2 Splenic mass 10/16/2021 HTN (hypertension) 10/16/2021 Obesity (BMI 30.0-34.9) 10/16/2021 Immunizations Immunization Administration Dates Next Due Hib (PRP-T) 10/22/2021 Meningococcal B, Omv 03/05/2022,10/22/2021 Meningococcal MCV4O 03/05/2022,10/22/2021 Pneumococcal Conjugate PCV 13 10/22/2021 Pneumococcal Polysaccharide PPV23 03/05/2022 Family History Medical History Relation Name Comments Lymphoma Father Pancreatic cancer Mother Diabetes Paternal Grandfather Relation Name Status Comments Father Mother Paternal Grandfather Social History Tobacco Use Types Packs/Day Years Used Date Smoking Tobacco: Former Cigars Q uit: 2013 Smokeless Tobacco: Never Alcohol Use Standard Drinks/Week Comments Not Currently 0 (1 standard drink = 0.6 oz pur e alcohol) rarely Sex and Gender Information Value Date Recorded Sex Assigned at Not on file Legal Sex Male 9:07 AM EST Gender Identity Not on file Sexual Orientation Not on file Last Filed Vital Signs Vital Sign Reading Time Taken Comments Blood Pressure 133/81 11/06/2021 8:53 AM EST Pulse 52 11/06/2021 8:53 AM EST Temperature 36.9 C (98.4 F) 11/06/2021 8:53 AM EST Respiratory Rate 20 11/06/2021 8:53 AM EST Oxygen Saturation 98% 11/06/2021 8:53 AM EST Inhaled Oxygen Concentration - - Weight 97.3 kg (214 lb 8.1 oz) 11/06/2021 8:53 A M EST Height 170.2 cm (5' 7 ) 11/06/2021 8:53 AM EST Body Mass Index 33.6 11/06/2021 8:53 AM EST Plan of Treatment Health Maintenance Due Date Last Done Comments [facility]-Depression Screening 1960 [facility]-Infant/Child/Adol SDOH Screenings 1960 [facility]- SDOH Screenings 1978 [facility]-Adult SDOH Screenings 1978 [facility]-DTaP,Tdap,and Td Vaccine s (1 - Tdap) 1979 CT Colonography 2005 Colonoscopy 2005 FIT-DNA 2005 FIT 2005 FOBT 2005 Sigmoidoscopy 2005 [facility]-Colorectal Cancer Screening 2005 [facility]-Zoster Vaccines (1 of 2) 2010 [id number] Vaccine (4 - season) 2024 08/03/2021, 10/18/2020, 09/19/2020 [facility]-Influenza Vaccine (Seaso n Ended) 2025 07/06/2021, 2020, 06/11/2017 [facility]-Pneumococcal Vaccine: 50 + Years (3 of 3 - PCV20 or PCV21) 03/05/2027 03/05/2022, 10/22/2021 [facility]-RSV Vaccine: 60+ Years o r (1 - 1-dose 75+ series) 2035 [facility]-HIB Vaccines Aged Out 10/22/2021 No longer e ligible based on patient's age to complete this topic HPV Vaccines Aged Out No longer eligi ble based on patient's age to complete this topic [facility]-Hepatitis A Vaccines Aged Out No longer eligible based on patient's age to complete this topic [facility]-IPV Vaccines Aged Out No longer e ligible based on patient's age to complete this topic [facility]-Rotavirus Vaccines Aged Out No lo nger eligible based on patient's age to complete this topic [place] [place] [address] Care Teams Stars Analytical Lead Relationship Specialty Start Date End Date Moreno Witt MD [address] [place] [address] PCP - General 10/16/21
--- NOTE | 2025-02-28 14:30 | CA_ITS ---
APPROVED REPORT EXAM: Comprehensive 2D, Doppler, and color-flow Echocardiogram Supervisor Contingents: Stephanie Larsen RVT Ht: 5 ft 7 in Wt: 259lbs BSA: 2.26 BP: 149/84 mmHg Indications: PULMONARY EDEMA,MURMUR 2D Dimensions IVSd 1.55 cm M: 0.6-1.2 LVEF (Visual) 57.80 % PWd 0.98 cm M: 0.6 - 1.2 LVDd 4.70 cm M: 4.2 - 5.9 LVDs 3.27 cm M: 2.5 - 4.0 M-Mode Dimensions LA Diam 4.87 cm (1.9-4.0) TAPSE 2.60 (<1.7) LV Diastology E Decel Time 217 (160-240 msec) E/A Ratio 1.3 Aortic Valve ARIANNA Index 1.89 cm2/m2 AoV Peak Dank. 107.0 (50-130 cm/s) AI PHT 920.00 ms AO Peak GR. 4.60 mmHg AO Mean GR. 3.00 (<5 mmHg) AO VTI 18.9 (18-25 cm) ARIANNA (VTI) 4.36 (2.5-4.5 cm2) Mitral Valve MV E Max Dank. 120.0 (40-130 cm/s) MV A Velocity 94.0 (40-130 cm/s) E/A Ratio 1.28 MV Mean Gr. 3.00 (<2mmHg) MV PHT 63.0 ms Pulmonary Valve PV Peak Velocity 84.0 (50-150 cm/s) Tricuspid Valve TR P. Velocity 241.00 cm/s RAP Estimate 10.00 mmHg RVSP 33.20 mmHg Left Ventricle The left ventricle is normal size. The left ventricular systolic function is normal. The left ventricular ejection fraction is within the normal range. There is increased LV wall thickness. There is normal LV segmental wall motion. Diastolic function is indeterminate. LVEF is 60%. Right Ventricle Right ventricle is mildly dilated. The right ventricular systolic function is normal. Atria Left atrium is moderately dilated. Right atrium is moderately dilated. There is no Doppler evidence of interatrial shunt. Aortic Valve The aortic valve is mildly thickened. There is no aortic valvular stenosis. Mild aortic regurgitation. Mitral Valve There is suspected prolapse of the posterior mitral valve leaflet. No evidence of mitral valve stenosis. At least moderate mitral regurgitation is present (difficult to estimate on TTE due to eccentric jet). The MR jet is very eccentric and anteriorly directed. Tricuspid Valve The tricuspid valve leaflets are thin and pliable. Mild tricuspid regurgitation. RVSP 25-30 mmHg. Pulmonic Valve The pulmonary valve is normal in structure. Trace pulmonic mild pulmonic regurgitation. Great Vessels The aortic root is normal in size. IVC is normal in size and collapses >50% with inspiration. Pericardium There is no pericardial effusion. Other Information Study Quality: Fair Conclusion Normal biventricular systolic function. Mild RV dilation. Moderate biatrial dilation. Suspected posterior mitral valve leaflet prolapse. At least moderate mitral regurgitation is present (difficult to estimate on TTE due to eccentric jet). The MR jet is very eccentric and anteriorly directed. Mild AI, mild TR, mild PI. In the setting of presence of symptoms and suspected MV prolapse with eccentric MR jet, further evaluation with MICHELLE is suggested to evaluate for mechanism and true severity of MR. Electronically signed by : Shanika Hooper MD 03/05/2025 21:44:02
== END 2025-02-28 23:59 | disposition home or self-care (01) ==
LOC: RT 14:11
PROVIDERS: PCP Internal Medicine; Visit Provider Physician Assistant
DX: I08.8 Other rheumatic multiple valve diseases (principal); J81.1 Chronic pulmonary edema; I25.10 Atherosclerotic heart disease of native coronary artery without angina pectoris; R93.1 Abnormal findings on diagnostic imaging of heart and coronary circulation
CPT/HCPCS: 93306

== ENCOUNTER 2025-03-02 13:28 | Outpatient (CLI) | payer OTHER, SELFPAY ==
--- OUTSIDE RECORDS SUMMARY | 2025-01-31 14:30 | XMS_ITS | Encounter Summary ---
Author Organization [employer] Address [address] [place] [address] Care Team Providers Care Settlement Processor Name Role Phone Ban De La Garza MD Unavailable [phone] Reason for Referral * Consultation (Routine) - Authorized Specialty Diagnoses / Procedures Referred By Mitesh toth Referred To Contact Neurology Diagnoses History of non-Hodgkin lymphoma Tremor New PT - Right Side Tremors, Hx Lymphoma Procedures Scheduled Ban De La Garza MD [address] [place] [address] [address] [place] [address] Phone: tel: fax:[phone] Aida Rueda MD [address] [place] [address] [address] [place] [address] Phone: tel: fax: Referral ID Status Reason Start Date Expiration Date Visits Requested Visits Authorized [id number] Authorized Specialty Services Required 01/31/2025 07/14/2025 1 1 * MRI (Emergency) - Pending Review Specialty Diagnoses / Procedures Referred By Mitesh toth Referred To Contact Radiology Diagnoses History of non-Hodgkin lymphoma Pulmonary edema GERD (gastroesophageal reflux disease) Procedures MRI BRAIN STEALTH W WO CONTRAST Ban De La Garza MD [address] [place] [address] [address] [place] [address] Phone: tel: fax:[phone] [facility]31 Phone: tel: Referral ID Status Reason Start Date Expiration Date V isits Requested Visits Authorized [id number] Pending Review 01/31/2025 07/14/2025 1 1 * Consultation (Routine) - Pending Review Specialty Diagnoses / Procedures Referred By Mitesh toth Referred To Contact Cardiology Diagnoses History of non-Hodgkin lymphoma Pulmonary edema GERD (gastroesophageal reflux disease) Ban De La Garza MD [facility] [address] [place] [address] Phone: tel: fax:[phone] [place] [address] [address] [facility] [place] [address] Phone: tel: Referral ID Status Reason Start Date Expiration Date Visits Requested Visits Authorized [id number] Pending Review Specialty Services Required 01/31/2025 07/14/2025 1 1 * Echocardiography (Routine) - Pending Review Specialty Diagnoses / Procedures Referred By Mitesh toth Referred To Contact Cardiology Diagnoses History of non-Hodgkin lymphoma Pulmonary edema GERD (gastroesophageal reflux disease) Procedures ECHO COMPLETE (DOPPLER / COLOR) W OR WO CONTRAST Ban De La Garza MD [address] [place] [address] [address] [place] [address] Phone: tel: fax:[phone] [facility] [place] [address] Phone: tel: Referral ID Status Reason Start Date Expiration Date V isits Requested Visits Authorized [id number] Pending Review 02/01/2025 07/14/2025 1 1 Reason for Visit * Reason Comments Follow-up History of non-Hodgk in's lymphoma Encounter Details Date Type Department Care Team (Late st Contact Info) Description 01/31/2025 2:30 PM EDT Office Visit [place] [facility] - [address] [place] [address] Ban De La Garza MD [address] [place] [address] History of non-Hodgkin lymphoma (Primary [...] Date Nik rded Speak language other than Cypriot at home Not on file 10/03/2023 Want [...] from the original note were not included. [facility] Oncology Clinic Note Cancer History: Presented 09/04 [...] an MRI of the brain to exclude ENTRY LEVEL SALES CONSULTANT metastasis or structural lesion as cause while [...] PM EDT Email sent to pt via Tr[employer], informed of recent tests results. Heart enzyme was slightly elevated. Other labs normal. Follow up with ECHO and cardiology. documented in this encounter Plan of Treatment Upcoming Encounters Date Type Department Care Team (Christianne Contact Info) Description 05/03/2025 1:00 PM EDT Office Visit [facility] Neurology - [facility] [address] [place] [address] Ban De La Garza MD [address] [place] [address] Aida Rueda MD [address] [place] [address] 08/17/2025 2:15 PM EST [facility] [place] [facility] [address] [place] [address] Ban De La Garza MD [address] [place], [place] [id number] Scheduled Orders Name Type Priority Associated Diagnoses [...] - 125 pg/mL 01/31/2025 3:05 PM EDT [facility] Blood Venipuncture / Unknown 01/31/2025 1:56 PM EDT 01/31/2025 1:59 PM EDT us aBn De La Garza MD LAB BLOOD ORDERABLES Final Res ult Performing Organization Address [facility]/ZIP Co de Phone Number [facility] [address] [place] [address] * Lactate dehydrogenase (LDH) (01/31/2025 1:56 PM EDT) LDH 212 87 - 241 U/L 01/31/2025 3:05 PM EDT [facility] Blood Venipuncture / Unknown 01/31/2025 1:56 PM EDT 01/31/2025 1:59 PM EDT us Ban De La Garza MD LAB BLOOD ORDERABLES Final Res ult [facility] [address] [place] [address], [place] [phone] * (ABNORMAL) Comprehensive metabolic panel (01/31/2025 1:56 PM EDT) Sodium 137 136 - 146 meq/L 01/31/2025 3:05 PM EDT [facility] Potassium 4.3 3.5 - 5.1 meq/L 01/31/2025 3:05 PM EDT [facility] Chloride 106 102 - 112 meq/L 01/31/2025 3:05 PM EDT [facility] CO2 24 21 - 32 meq/L 01/31/2025 3:05 PM EDT [facility] Calcium 9.2 8.5 - 10.1 mg/dL 01/31/2025 3:05 PM EDT [facility] Glucose 110(H) 74 - 106 mg/dL 01/31/2025 3:05 PM EDT [facility] BUN 12 7 - 22 mg/dL 01/31/2025 3:05 PM EDT [facility] Creatinine 0.95 0.70 - 1.30 mg/dL 01/31/2025 3:05 PM EDT [facility] BUN/Creatinine 13 8 - 20 01/31/2025 3:05 PM EDT [facility] Albumin 3.9 3.4 - 5.0 g/dL 01/31/2025 3:05 PM EDT [facility] Alkaline Phosphatase 86 27 - 136 U/L 01/31/2025 3:05 PM EDT [facility] ALT 26 12 - 78 U/L 01/31/2025 3:05 PM EDT [facility] AST 19 5 - 37 U/L 01/31/2025 3:05 PM EDT [facility] Total Bilirubin 0.9 0.2 - 1.3 mg/dL 01/31/2025 3:05 PM EDT [facility] Protein, Total 7.8 6.4 - 8.2 gm/dL 01/31/2025 3:05 PM EDT [facility] Anion Gap 11 9 - 20 01/31/2025 3:05 PM EDT [facility] A/G Ratio 1.0(L) 1.1 - 2.5 01/31/2025 3:05 PM EDT [facility] Globulin 3.9 1.5 - 4.5 g/dL 01/31/2025 3:05 PM EDT [facility] Osmolality Calc 274.2 mOsm/kg 3:05 PM EDT [facility] eGFR (mL/min/1.73m2) >60 >=60 mL/min/1.7 3m2 01/31/2025 3:05 PM EDT [facility] Comment:ESTIMATED GFR IS NOT ACCURATE CREATININE CLEARANCE IN PREDICTING GLOMERULAR FILTRATION RATE. ESTIMATED GFR IS NOT APPLICABLE FOR DIALYSIS PATIENTS. Blood Venipuncture / Unknown 01/31/2025 1:56 PM EDT 01/31/2025 1:59 PM EDT us Ban De La Garza MD LAB BLOOD ORDERABLES Final Res ult Performing Organization Address City/State/[facility] Co de Phone Number [facility] [address] [place] [address] * (ABNORMAL) CBC with automated diff (01/31/2025 [...] 1:56 PM EDT 01/31/2025 1:59 PM EDT [facility] ONCOLOGY LABORATORY - [place] - 01/31/2025 2:04 [...] Final Res ult ONCOLOGY LABORATORY - [facility] [address] [place] [address], [place] [phone] documented in this encounter Visit Diagnoses Diagnosis History of non-Hodgkin lymphoma- Primary Pulmonary edema Pulmonary congestion and hypostasis GERD (gastroesophageal reflux disease) Esophageal reflux Tremor Abnormal involuntary movements documented in this encounter Care Teams Settlement Processor Relationship Specialty Start Date End Date Ban De La Garza MD [address] [facility] [address] [place] [address] Hematology and Oncology 01/13/24 documented as of this encounter
--- NOTE | 2025-03-02 13:30 | MR_ITS ---
FINAL REPORT CLINICAL HISTORY: TREMOR/HEMATOLOGIC. TREMOR IN RIGHT HAND TO THUMB COMPARISON: None FINDINGS: Multiplanar MR imaging of the brain was performed without and with contrast. Mild changes of atrophy are present, slightly more prominent than expected for the patient's chronologic age. There is no evidence of intracranial hemorrhage or mass. No abnormal extra-axial fluid collection is seen. The ventricular size is within normal limits. There is no evidence of shift of the midline structures. The posterior fossa and brainstem have an unremarkable appearance. No area of abnormal restricted diffusion is identified. No abnormal contrast enhancement is seen. Normal major vessel vascular flow voids are noted. There is mucoperiosteal thickening and an air-fluid level present in the left maxillary sinus. IMPRESSION: No acute intracranial abnormality identified. Mild atrophy, slightly more than expected for the patient's chronologic age. Mucoperiosteal thickening and air-fluid level present in the left maxillary sinus, consistent with acute and chronic sinusitis. Reviewed, Interpreted and Dictated by Raul Fofana MD Transcribed by Diann Michaud Authenticated and [facility]
--- OUTSIDE RECORDS SUMMARY | 2025-03-02 13:31 | XMS_ITS | Encounter Summary ---
Author Organization [employer] Address [address] [place] [address] Care Team Providers Care Straight Knife Machine Cutter Name Role Phone Case, Pat Saravia RN Unavailable Unavailable Ban De La Garza MD Unavailable [phone] Encounter Details Date Type Department Care Team (Late st Contact Info) Description 02/21/2022 Transcribed Document [facility] Family Medicine [address] [place] [address] ProviderCollins MD [address] [place] [address] Social History Tobacco Use Types Packs/Day Years Used Date Smoking Tobacco: Never Assessed Sex and Gender Information Value Date Recorded Sex Assigned at Male 03/12/2022 9:01 PM CDT Legal Sex Male 9:01 PM CDT Gender Identity Male 03/12/2022 9:01 PM CDT Sexual Orientation Not on file documented as of this encounter Miscellaneous Notes * Cerner Conversion Note - Collins ProviderMD - 02/21/2022 11:30 AM CDT Event Note Entered On: 02/21/2022 12:09 EDT Performed On: 02/21/2022 11:30 EDT by KEVIN FOFANA RN Event Note Event Date/Time : 02/21/2022 11:30 EDT Description of Event : Return from IR per stretcher awake and alert, skin w/d, denies any c/o, spouse here at bedside. Has dressing right subclavian area-CDI, no swelling, no bleeding, no pain. Food and drink offered. KEVIN FOFANA, RN - 02/21/2022 12:07 EDT Electronically signed by Yovanny, [facility] Conversion Nursing Secretary Cerner at 12/31/2022 1:31 PM CDT documented in this encounter Plan of Treatment Upcoming Encounters Date Type Department Care Team (Late st Contact Info) Description 05/03/2025 1:00 PM EDT Office Visit [facility] Neurology - [address] [place] [address] [place] [address] Ban De La Garza MD [address] [place] [address] Aida Rueda MD [address] [place] [address] 08/17/2025 2:15 PM EST Office Visit [facility] - [place] [address] [place] [address] Ban De La Garza MD [address] [place] [address] documented as of this encounter Visit Diagnoses Not on filedocumented in this encounter Care Teams Straight Knife Machine Cutter Relationship Specialty Start Date End Date Case, Pat Saravia RN Nurse Navigator 01/07/23 01/27/24 Ban De La Garza MD [address] [place] [address] Hematology and Oncology 01/13/24 documented as of this encounter
--- OUTSIDE RECORDS SUMMARY | 2025-03-02 13:31 | XMS_ITS | Encounter Summary ---
Author Organization [employer] Address [address] [place] [address] Care Team Providers Care Confidential Secretary Name Role Phone CasePat RN Unavailable Unavailable Ban De La Garza MD Unavailable [phone] Encounter Details Date Type Department Care Team (Late st Contact Info) Description 02/21/2022 Transcribed Document [facility] Family Medicine [address] [place] [address] ProviderCollins MD [address] [place] [address] Social History Tobacco Use Types Packs/Day Years Used Date Smoking Tobacco: Never Assessed Sex and Gender Information Value Date Recorded Sex Assigned at Male 03/12/2022 9:01 PM CDT Legal Sex Male 9:01 PM CDT Gender Identity Male 03/12/2022 9:01 PM CDT Sexual Orientation Not on file documented as of this encounter Miscellaneous Notes * Cerner Conversion Note - Collins Montano MD - 02/21/2022 12:34 PM CDT Nursing Discharge Summary Entered On: 02/21/2022 12:35 EDT Performed On: 02/21/2022 12:34 EDT by KEVIN FOFANA, plug saw operator Documentation Discharge Date/Time : 02/21/2022 12:45 EDT KEVIN FOFANA RN - 02/21/2022 12:45 EDT Patient Disposition, General : Discharge Discharge To : Home with ambulatory/outpatient follow-up Name of Receiving Facility/Provider : DR. DE LA GARZA Mode Of Departure, General Discharge : Ambulatory Accompanied By, Discharge : Spouse IV Discontinued : Yes Personal Belongings With Patient : Yes Pt's Own Supply of Medications Returned : No Prescriptions Given to Patient : No Medications Given to Patient : No Teaching Method : Demonstration, Explanation Teaching Evaluation : Returns demonstration, Verbalizes understanding Worker's Compensation Paperwork Completed : No Discharge, Comment : Keep all appointments. KEVNI FOFANA RN - 02/21/2022 12:34 EDT Electronically signed by Yovanny [facility] Conversion Design Center Consultant Cerner at 12/31/2022 1:28 PM CDT documented in this encounter Plan of Treatment Upcoming Encounters Date Type Department Care Team (Late st Contact Info) Description 05/03/2025 1:00 PM EDT Office Visit [facility] Neurology - [address] [place] [address] [place] [address] Ban De La Garza MD [facility] [address] [place] [place] [address] Aida Rueda MD [address] [place] [address] 08/17/2025 2:15 PM EST Office Visit [facility] - [address] [place] [address] Ban De La Garza MD [facility] [address] [place] [address] documented as of this encounter Visit Diagnoses Not on filedocumented in this encounter Care Teams Confidential Secretary Relationship Specialty Start Date End Date Case, Pat Saravia RN Nurse Navigator 01/07/23 01/27/24 Ban De La Garza MD [address] [place] [address] Hematology and Oncology 01/13/24 documented as of this encounter
--- OUTSIDE RECORDS SUMMARY | 2025-03-02 13:31 | XMS_ITS | Encounter Summary ---
Author Organization [employer] Address [address] [place] [address] Care Team Providers Care Renal Case Manager Name Role Phone Ban De La Garza MD Unavailable [phone] Reason for Visit * Reason Onset Date Comments Advice Only 02/02/2025 Encounter Details Date Type Department Care Team (Late st Contact Info) Description 02/02/2025 Telephone [facility] - [address] [place] [id number] Ban De La Garza MD [address] [place] [address] [address] [place] [address] Advice Only Social History Tobacco Use Types Packs/Day Years [...] Date Nik rded Speak language other than [place] at home Not on file 10/03/2023 Want [...] as of this encounter Miscellaneous Notes * Telephone Encounter - Negro Ellis RN - 02/03/2025 1:25 PM EDT Left message with [facility] scheduling attn Esther informing her that I was faxing over the new order for brain MRI. Faxed order to [phone]. * Telephone Encounter - Reanna Thomas PA-C - 02/02/2025 4:39 PM EDT I've reordered it as regular brain. * Telephone Encounter - Reanna Thomas PA-C - 02/02/2025 4:14 PM EDT I assume you do want the MRI with stealth? * Telephone Encounter - Negro Ellis RN - 02/02/2025 4:07 PM EDT Esther, with [facility] scheduling called to ask about the MRI that was ordered for this pt. She states that the stealth provides more images and they are unable to do that specific imaging. However if this was just meant to be a normal brain MRI they could get him scheduled. They will need a new order if that is the case. documented in this encounter Plan of Treatment Upcoming Encounters Date Type Department Care Team (Late st Contact Info) Description 05/03/2025 1:00 PM EDT Office Visit [facility] Neurology - [place] [place] [address] [place] [address] Ban De La Garza MD [facility] [address] [place] [address] Aida Rueda MD [address] [place] [address] 08/17/2025 2:15 PM EST Office Visit [facility] - [place] [address] [place] [address] Ban De La Garza MD [facility] [address] [place] [address] documented as of this encounter Visit Diagnoses Not on filedocumented in this encounter Care Teams Renal Case Manager Relationship Specialty Start Date End Date Ban De La Garza MD [facility] [place] [address] Hematology and Oncology 01/13/24 documented as of this encounter
--- OUTSIDE RECORDS SUMMARY | 2025-03-02 13:31 | XMS_ITS | Encounter Summary ---
Author Organization [employer] Address [address] [place] [address] Care Team Providers Care Stake Setter Name Role Phone Ban De La Garza MD Unavailable [phone] Encounter Details Date Type Department Care Team (Late st Contact Info) Description 02/22/2025 Orders Only [facility] - [address] [facility] [address] [place] [address] Ban De La Garza MD [address] [place], [place] [address] Social History Tobacco Use Types Packs/Day Years [...] Date Nik rded Speak language other than Martiniquais at home Not on file 10/03/2023 Want [...] on file documented as of this encounter Plan of Treatment Upcoming Encounters Date Type Department Care Team (Late st Contact Info) Description 05/03/2025 1:00 PM EDT Office Visit [facility] Neurology - [place] [address] [place] [address] Ban De La Garza MD [address] [place] [address] Aida Rueda MD [address] [place] [address] 08/17/2025 2:15 PM EST Office Visit [facility] - [place] [address] [place] [address] Ban De La Garza MD [address] [place] [address] documented as of this encounter Visit Diagnoses Not on filedocumented in this encounter Care Teams Stake Setter Relationship Specialty Start Date End Date Ban De La Garza MD [address] [place] [address] Hematology and Oncology 01/13/24 documented as of this encounter
--- OUTSIDE RECORDS SUMMARY | 2025-03-02 13:31 | XMS_ITS | Referral Summary ---
Author Organization [employer] Address [address] [place] [address] Care Team Providers Care Bowling Alley Manager Name Role Phone Ban De La Garza MD Unavailable [phone] Encounters Date Type Department Care Team Description 02/22/2025 Orders Only [facility] - [place] [address] [place] [address] Ban De La Garza MD 02/02/2025 Orders Only [facility] - [place] [address] [place] [address] Reanna Thomas PA-C Tremor (Primary Dx) 02/02/2025 Telephone [facility] - [place] [address] [place] [address] Ban De La Garza MD Advice Only 01/31/2025 Orders Only [facility] - [place] [address] [place] [address] Ban De La Garza MD 01/31/2025 2:30 PM EDT Office Visit [facility] - [address] [address] [place] [address] Ban De La Garza MD History of non-Hodgkin lymphoma (Primary Dx); Pulmonary edema; GERD (gastroesophageal reflux disease); Tremor 01/20/2025 Orders Only [facility] - [place] [address] [place] [address] Provider, MD Collins from Last 3 Months Allergies Active Allergy Reactions Criticality Noted Date Comments Sulfa (Sulfonamide Antibiotics) Nausea Only,Other (See Comments) 07/15/2023 Nausea and GI issues Medications tamsulosin (FLOMAX) 0.4 mg Cap 24 hr capsuleIndicati ons: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 Active propranoloL (INDERAL LA) 120 MG 24 hr capsule Take 1 capsule (120 mg total) by mouth daily. 07/08/2024 Active Effexor XR 37.5 mg 24 hr capsule Take 1 capsule (37.5 mg total) by mouth daily with breakfast. 12/06/2024 Active pantoprazole (PROTONIX) 40 MG tablet Take 1 tablet (40 mg total) by mouth Daily (0600). 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 Hypertension 07/10/2022 BPH (benign prostatic hyperplasia) 10/16/2021 GERD (gastroesophageal reflux disease) 2 HTN (hypertension) 10/16/2021 Obesity (BMI 30.0-34.9) 10/16/2021 Social History Tobacco Use Types Packs/Day Years [...] Date Nik rded Speak language other than [place]er at home Not on file 10/03/2023 Want [...] PM CDT Sexual Orientation Not on file Last Filed [...] Mass Index 40.57 01/31/2025 2:04 PM EDT Plan of Treatment Upcoming Encounters Date Type Department Care Team (Late st Contact Info) Description 05/03/2025 1:00 PM EDT Office Visit [facility] Neurology - [facility] [address] [place] [address] Ban De La Garza MD [address] [place], [place] [id number] Aida Rueda MD [address] [facility] [address] [place] [address] 08/17/2025 2:15 PM EST Office Visit [facility] - [place] [address] [place] [address] Ban De La Garza MD [address] [place] [address] Procedures Procedure Name Priority Date/Time Associated Diagnosis Comments PROBNP Routine 01/31/2025 1:56 PM EDT History of non-Hodgkin lymphoma Pulmonary edema LACTATE DEHYDROGENASE (LDH) Routine 01/31/2025 1:56 PM EDT History of non-Hodgkin lymphoma Pulmonary edema COMPREHENSIVE METABOLIC PANEL Routine 01/31/2025 1:56 PM EDT History of non-Hodgkin lymphoma Pulmonary edema CBC W/ AUTO DIFF Routine 01/31/2025 1:56 PM EDT History of non-Hodgkin lymphoma Pulmonary edema EXTERNAL IMAGING - CT Routine 01/20/2025 2:20 PM EDT HEPATITIS PANEL, ACUTE Routine 2 9:58 AM EST from Last 3 Months or Most Recently Relevant to Health Maintenance Results * (ABNORMAL) CBC with automated diff (01/31/2025 [...] Blast? Flag noted Atypical Lymph flag noted Ban De La Garza MD LAB BLOOD ORDERABLES Final Res ult [facility] [place] [address], [facility] [phone] * (ABNORMAL) PROBNP (01/31/2025 1:56 PM EDT) Pathologist [facility] ProBNP (pg/mL) 219(H) 0 - 125 pg/mL 01/31/2025 3:05 PM EDT [facility] Blood Venipuncture / Unknown 01/31/2025 1:56 PM EDT 01/31/2025 1:59 PM EDT Ban De La Garza MD LAB BLOOD ORDERABLES Final Res ult Performing Organization Address [facility]/ZIP Co de Phone Number [facility] [address] [place] [address], [facility] [phone] * Lactate dehydrogenase (LDH) (01/31/2025 1:56 PM EDT) [facility] LDH 212 87 - 241 U/L 01/31/2025 3:05 PM EDT [facility] Blood Venipuncture / Unknown 01/31/2025 1:56 PM EDT 01/31/2025 1:59 PM EDT Ban De La Garza MD LAB BLOOD ORDERABLES Final Res ult Performing Organization Address [facility]/ZIP Co de Phone Number [facility] [address] [place] [address], [facility] [phone] * (ABNORMAL) Comprehensive metabolic panel (01/31/2025 1:56 PM EDT) [facility] Sodium 137 136 - 146 meq/L 01/31/2025 3:05 PM EDT [facility] Potassium 4.3 3.5 - 5.1 meq/L 01/31/2025 3:05 PM T [facility] Chloride 106 102 - 112 meq/L 01/31/2025 3:05 PM T [facility] CO2 24 21 - 32 meq/L 01/31/2025 3:05 PM [facility] Calcium 9.2 8.5 - 10.1 mg/dL 01/31/2025 3:05 PM T [facility] Glucose 110(H) 74 - 106 mg/dL 01/31/2025 3:05 PM [facility] BUN 12 7 - 22 mg/dL 01/31/2025 3:05 PM [facility] Creatinine 0.95 0.70 - 1.30 mg/dL 01/31/2025 3:05 PM [facility] BUN/Creatinine 13 8 - 20 01/31/2025 3:05 PM [facility] Albumin 3.9 3.4 - 5.0 g/dL 01/31/2025 3:05 PM [facility] Alkaline Phosphatase 86 27 - 136 U/L 01/31/2025 3:05 PM [facility] ALT 26 12 - 78 U/L 01/31/2025 3:05 PM [facility] AST 19 5 - 37 U/L 01/31/2025 3:05 PM [facility] Total Bilirubin 0.9 0.2 - 1.3 mg/dL 01/31/2025 3:05 PM [facility] Protein, Total 7.8 6.4 - 8.2 gm/dL 01/31/2025 3:05 PM [facility] Anion Gap 11 9 - 20 01/31/2025 3:05 PM [facility] A/G Ratio 1.0(L) 1.1 - 2.5 01/31/2025 3:05 PM [facility] Globulin 3.9 1.5 - 4.5 g/dL 01/31/2025 3:05 PM [facility] Osmolality Calc 274.2 mOsm/kg 3:05 PM [facility] eGFR (mL/min/1.73m2) >60 >=60 mL/min/1.7 3m2 01/31/2025 3:05 PM EDT [facility] Comment:ESTIMATED GFR IS NOT ACCURATE CREATININE CLEARANCE IN PREDICTING GLOMERULAR FILTRATION RATE. ESTIMATED GFR IS NOT APPLICABLE FOR DIALYSIS PATIENTS. Blood Venipuncture / Unknown 01/31/2025 1:56 PM EDT 01/31/2025 1:59 PM EDT Ban De La Garza MD LAB BLOOD ORDERABLES Final Res ult [facility] [address] [phone] * EXTERNAL IMAGING - CT (01/20/2025 2:20 PM EDT) Anatomical Region Laterality Modality Other Historical Provider HEALTH MAINTENANCE Final Result * Hepatitis panel, acute (10/24/2021 9:58 AM EST) Hep A IgM AB Non Reactive 10/24/2021 5:09 PM EST Comment: (a) A negative test result does not exclude the possibility of exposure to the hepatitis A virus. (b) This test can be used to determine if a patient has or recently had an acute or asymptomatic hepatitis A infection. (c) A reactive result does not exclude co-infection by another hepatitis virus. Biotin supplements can cause clinically significant incorrect lab results. The FDA has seen an increase in the number of reported adverse events related to biotin interference with lab tests. Hep B Surf AG Non Reactive 5:09 PM EST Comment:Biotin supplements c an cause clinically significant incorrect lab results. The FDA has seen an increase in the number of adverse events related to biotin interference with lab tests. Hep B Core Non Reactive Non Reactive 10/24/2021 5:09 PM EST Hep C AB Non Reactive 10/24/2021 5:09 PM EST Comment:Biotin supplements c an cause clinically significant incorrect lab results. The FDA has seen an increase in the number of adverse events realted to biotin interference with lab tests. Blood 10/24/2021 9:58 AM EST 10/24/2021 3:36 PM EST [facility] Historical Provider LAB BLOOD ORDERABLES Fi nal Result [facility] [address] [place] [address], [facility] [phone] from Last 3 Months or Most Recently Relevant to Health Maintenance Insurance BLUE CROSS/BLUE SHIELD Care Teams Bowling Alley Manager Relationship Specialty Start Date End Date Ban De La Garza MD [address] [facility] [address] [place] [address] Hematology and Oncology 01/13/24
--- OUTSIDE RECORDS SUMMARY | 2025-03-02 13:31 | XMS_ITS | Encounter Summary ---
Author Organization [employer] Address [address] [place] [address] Care Team Providers Care Pari Mutuel Clerk Name Role Phone Ban De La Garza MD Unavailable [phone] Encounter Details Date Type Department Care Team (Late st Contact Info) Description 01/31/2025 Orders Only [facility] - [address] [facility] [place] [address] [place] [address] Ban De La Garza MD [address] [place], [place] [id number] Social History Tobacco Use Types Packs/Day Years [...] Date Nik rded Speak language other than Haitian at home Not on file 10/03/2023 Want [...] Description 05/03/2025 1:00 PM EDT Office Visit [facility]rology - [address] [place] [address] Ban De La Garza MD [address] [place] [address] Aida Rueda MD [address] [place] [address] 08/17/2025 2:15 PM EST Office Visit [facility] - [place] [address] [place] [address] Ban De La Garza MD [address] [place] [address] documented as of this encounter Visit Diagnoses Not on filedocumented in this encounter Care Teams Pari Mutuel Clerk Relationship Specialty Start Date End Date Ban De La Garza MD [address] [place] [address] Hematology and Oncology 01/13/24 documented as of this encounter
--- OUTSIDE RECORDS SUMMARY | 2025-03-02 13:31 | XMS_ITS | Encounter Summary ---
Author Organization [employer] Address [address] [place] [address] Care Team Providers Care Diaphragm Builder Name Role Phone Case, Pat Saravia RN Unavailable Unavailable Ivanna De La Garza MD Unavailable [phone] Encounter Details Date Type Department Care Team (Late st Contact Info) Description 02/21/2022 Transcribed Document [facility] Family Medicine [address] [place] [address] ProviderCollins MD [address] [place], [place] [id number] Social History Tobacco Use Types Packs/Day Years Used Date Smoking Tobacco: Never Assessed Sex and Gender Information Value Date Recorded Sex Assigned at Male 03/12/2022 9:01 PM CDT Legal Sex Male 9:01 PM CDT Gender Identity Male 03/12/2022 9:01 PM CDT Sexual Orientation Not on file documented as of this encounter Miscellaneous Notes * Cerner Conversion Note - Collins Montano MD - 02/21/2022 12:36 PM CDT [facility] 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 Discharge Vitals Temperature 36.2 ??C Heart Rate (Monitored) 72 Respiratory Rate 17 Blood Pressure 147/70 What to do next Instructions From Your Care Team NO DRIVING UNTIL TOMORROW AFTER LUNCH. KEEP DRESSING CLEAN AND DRY FOR 24 HOURS, THEN SHOWER AND REMOVE CLEAR DRESSING AND GAUZE. FOR BLEEDING OR SWELLING AT WOUND SITE-HOLD PRESSURE AND CALL 911. Follow-Up Appointments Follow Up with IVANNA DE LA GARZA MD-ONC When Within 2 to 3 days Comments Follow-up as instructed Where: [address] [place] [address]- Medications What How Much When Instructions Next Dose LORazepam (LORazepam 0.5 mg oral tablet) 1 Tablet(s) Oral Two Times A Day as needed for as needed for anxiety pantoprazole (pantoprazole 40 mg oral delayed release tablet) 1 Tablet(s) Oral Every Day tamsulosin (tamsulosin 0.4 mg oral capsule) 1 Capsule(s) Oral Every Day TAKE ONE CAPSULE BY MOUTH EVERY DAY AT BEDTIME Take your medications faithfully. Do NOT skip medication. Do NOT stop taking medications without the direction of a physician. Carry a list of your medications with you at all times, and take this medication list with you to your first follow up visit. Report any side effects. Avoid herbal remedies unless discussed with your physician. As part of your treatment plan, your physician may have prescribed a limited course of a controlled substance. This medication may be given to help people with moderate or severe pain or for other medical conditions, but there are risks involved with treatment. Common side effects may include nausea, constipation, drowsiness, sweating, itching, dry mouth, and rash. More serious side effects may include cognitive and motor impairment, like problems with thinking, concentrating, alertness, and movement (e.g. slowed reflexes), and driving and operating heavy machinery can be dangerous. It is important for you to talk to your physician if you have these side effects or questions. These controlled substances can produce physical dependence and be habit-forming if taken for an extended period of time, which means that the body has gotten used to them and may experience withdrawal symptoms if they are abruptly stopped. Withdrawal symptoms can include runny nose, sweating, goose bumps, diarrhea, abdominal cramping, rapid heartbeat, difficulty sleeping, and nervousness. Please dispose of unused and medications per your retail pharmacy guidance. Allergies No Known Allergies Immunizations This Visit No Immunizations Found Education Materials Tissue Adhesive Wound Care Some cuts and wounds can be closed with skin glue (tissue adhesive). Skin glue holds the skin together and helps your wound heal faster. Skin glue goes away on its own as your wound gets better. It is important to take good care of your wound at home while it heals. Follow these instructions at home: Wound care ??? If a bandage (dressing) was put on the wound, keep it clean and dry. ??? Follow instructions from your doctor about how often to change the bandage. ? Wash your hands for at least 20 seconds with soap and water before and after you change your bandage. If you cannot use soap and water, use hand dog warden. ? Change the bandage as often as told by your doctor. ? Leave skin glue in place. It will fall off on its own after 7???10 days. ??? Do not scratch, rub, or pick at the skin glue. ??? Do not put tape over the skin glue. The skin glue could come off when you take the tape off. ??? Protect the wound from another injury. ??? Check your wound area every day for signs of infection. Check for: ? More redness, swelling, or pain. ? Fluid or blood. ? Warmth. ? Pus or a bad smell. Bathing ??? Do not take baths, swim, or use a hot tub until your doctor approves. You may only be allowed to take sponge baths. Ask your doctor if you may take showers. ? Showers are usually allowed 24 hours after treatment. ? Cover the dressing with a watertight covering when you take a shower. ??? Do not soak the area where skin glue has been used. ??? Do not use soaps or creams on your wound. Eating and drinking ??? Eat healthy foods to help the wound heal. As told by your doctor, eat a diet that includes protein, vitamin A, vitamin C, and other nutrients. You should eat: ? Foods rich in protein. These include meat, fish, eggs, dairy, beans, and nuts. ? Foods rich in vitamin A. These include carrots and dark green, leafy vegetables. ? Foods rich in vitamin C. These include oranges, tomatoes, broccoli, and peppers. ??? Drink enough fluid to keep your pee (urine) pale yellow. General instructions ??? Protect your wound from the sun when you are outside for the first 6 months, or for as long as told by your doctor. Put on sunscreen with an SPF of 30 or higher around the scar, or cover it up. ??? Take txbo-kwa-tmztpuc and prescription medicines only as told by your doctor. ??? Do not use any products that contain nicotine or tobacco, such as cigarettes, e-cigarettes, and chewing tobacco. These can delay wound healing. If you need help quitting, ask your doctor. ??? Keep all follow-up visits as told by your doctor. This is important. Contact a doctor if: ??? The glue used on your wound gets soaked with blood or falls off before your wound has healed. The glue may need to be replaced. ??? You have a fever or chills. Get help right away if: ??? Your wound breaks open. ??? You have any of these signs of infection: ? More redness, swelling, or pain around your wound. ? A red streak at the area around your wound. ? Fluid or blood coming from your wound. ? Warmth coming from your wound. ? Pus or a bad smell coming from your wound. ??? You get a rash after the glue is put on. Summary ??? Some cuts and wounds can be closed with skin glue (tissue adhesive). Skin glue holds the skin together and helps your wound heal faster. ??? It is important to take good care of your wound at home while it heals. ??? Wash your hands for at least 20 seconds with soap and water before and after you change your bandage. ??? Eat healthy foods. ??? Check your wound every day for signs of infection. This information is not intended to replace advice given to you by your health care provider. Make sure you discuss any questions you have with your health care provider. Document Revised: 07/28/2020 Document Reviewed: 07/28/2020 Elsevier Patient Education ?? 2020 [employer] Implanted Port Removal Home Guide An implanted port is a device that is placed under the skin. It is usually placed in the chest. The device can be used to give IV medicine, to take blood, or for dialysis. You may have an implanted port if: ??? You need IV medicine that would be irritating to the small veins in your hands or arms. ??? You need IV medicines, such as antibiotics, for a long period of time. ??? You need IV nutrition for a long period of time. ??? You need dialysis. When you have a port, your health care provider can choose to use the port instead of veins in your arms for these procedures. You may have fewer limitations when using a port than you would if you used other types of long-term IVs, and you will likely be able to return to normal activities after your incision heals. An implanted port has two main parts: ??? [place]. The reservoir is the part where a needle is inserted to give medicines or draw blood. The reservoir is round. After it is placed, it appears as a small, raised area under your skin. ??? Catheter. The catheter is a thin, flexible tube that connects the reservoir to a vein. Medicine that is inserted into the reservoir goes into the catheter and then into the vein. How is my port accessed? To access your port: ??? A numbing cream may be placed on the skin over the port site. ??? Your health care provider will put on a mask and sterile gloves. ??? The skin over your port will be cleaned carefully with a germ-killing soap and allowed to dry. ??? Your health care provider will gently pinch the port and insert a needle into it. ??? Your health care provider will check for a blood return to make sure the port is in the vein and is not clogged. ??? If your port needs to remain accessed to get medicine continuously (constant infusion), your health care provider will place a clear bandage (dressing) over the needle site. The dressing and needle will need to be changed every week, or as told by your health care provider. What is flushing? Flushing helps keep the port from getting clogged. Follow instructions from your health care provider about how and when to flush the port. Ports are usually flushed with saline solution or a medicine called heparin. The need for flushing will depend on how the port is used: ??? If the port is only used from time to time to give medicines or draw blood, the port may need to be flushed: ? Before and after medicines have been given. ? Before and after blood has been drawn. ? As part of routine maintenance. Flushing may be recommended every 4???6 weeks. ??? If a constant infusion is running, the port may not need to be flushed. ??? Throw away any syringes in a disposal container that is meant for sharp items (sharps container). You can buy a sharps container from a pharmacy, or you can make one by using an empty hard plastic bottle with a cover. How long will my port stay implanted? The port can stay in for as long as your health care provider thinks it is needed. When it is time for the port to come out, a surgery will be done to remove it. The surgery will be similar to the procedure that was done to put the port in. Follow these instructions at home: ??? Flush your port as told by your health care provider. ??? If you need an infusion over several days, follow instructions from your health care provider about how to take care of your port site. Make sure you: ? Wash your hands with soap and water before you change your dressing. If soap and water are not available, use alcohol-based hand dog warden. ? Change your dressing as told by your health care provider. ? Place any used dressings or infusion bags into a plastic bag. Throw that bag in the trash. ? Keep the dressing that covers the needle clean and dry. Do not get it wet. ? Do not use scissors or sharp objects near the tube. ? Keep the tube clamped, unless it is being used. ??? Check your port site every day for signs of infection. Check for: ? Redness, swelling, or pain. ? Fluid or blood. ? Pus or a bad smell. ??? Protect the skin around the port site. ? Avoid wearing bra straps that rub or irritate the site. ? Protect the skin around your port from seat belts. Place a soft pad over your chest if needed. ??? Bathe or shower as told by your health care provider. The site may get wet as long as you are not actively receiving an infusion. ??? Return to your normal activities as told by your health care provider. Ask your health care provider what activities are safe for you. ??? Carry a medical alert card or wear a medical alert bracelet at all times. This will let health care providers know that you have an implanted port in case of an emergency. Get help right away if: ??? You have redness, swelling, or pain at the port site. ??? You have fluid or blood coming from your port site. ??? You have pus or a bad smell coming from the port site. ??? You have a fever. Summary ??? Implanted ports are usually placed in the chest for long-term IV access. ??? Follow instructions from your health care provider about flushing the port and changing bandages (dressings). ??? Take care of the area around your port by avoiding clothing that puts pressure on the area, and by watching for signs of infection. ??? Protect the skin around your port from seat belts. Place a soft pad over your chest if needed. ??? Get help right away if you have a fever or you have redness, swelling, pain, drainage, or a bad smell at the port site. This information is not intended to replace advice given to you by your health care provider. Make sure you discuss any questions you have with your health care provider. Document Revised: 01/15/2021 Document Reviewed: 01/15/2021 [employer] Patient Education ?? 2020 [employer] Moderate Conscious Sedation, Adult, Care After This sheet gives you information about how to care for yourself after your procedure. Your health care provider may also give you more specific instructions. If you have problems or questions, contact your health care provider. What can I expect after the procedure? After the procedure, it is common to have: ??? Sleepiness for several hours. ??? Impaired judgment for several hours. ??? Difficulty with balance. ??? Vomiting if you eat too soon. Follow these instructions at home: For the time period you were told by your health care provider: ??? Rest. ??? Do not participate in activities where you could fall or become injured. ??? Do not drive or use machinery. ??? Do not drink alcohol. ??? Do not take sleeping pills or medicines that cause drowsiness. ??? Do not make important decisions or sign legal documents. ??? Do not take care of children on your own. Eating and drinking ??? Follow the diet recommended by your health care provider. ??? Drink enough fluid to keep your urine pale yellow. ??? If you vomit: ? Drink water, juice, or soup when you can drink without vomiting. ? Make sure you have little or no nausea before eating solid foods. General instructions ??? Take gpye-ffu-fphwjnd and prescription medicines only as told by your health care provider. ??? Have a responsible adult stay with you for the time you are told. It is important to have someone help care for you until you are awake and alert. ??? Do not smoke. ??? Keep all follow-up visits as told by your health care provider. This is important. Contact a health care provider if: ??? You are still sleepy or having trouble with balance after 24 hours. ??? You feel light-headed. ??? You keep feeling nauseous or you keep vomiting. ??? You develop a rash. ??? You have a fever. ??? You have redness or swelling around the IV site. Get help right away if: ??? You have trouble breathing. ??? You have new-onset confusion at home. Summary ??? After the procedure, it is common to feel sleepy, have impaired judgment, or feel nauseous if you eat too soon. ??? Rest after you get home. Know the things you should not do after the procedure. ??? Follow the diet recommended by your health care provider and drink enough fluid to keep your urine pale yellow. ??? Get help right away if you have trouble breathing or new-onset confusion at home. This information is not intended to replace advice given to you by your health care provider. Make sure you discuss any questions you have with your health care provider. Document Revised: 12/29/2020 Document Reviewed: 07/27/2020 Elsevier Patient Education ?? 2020 [employer] Emergency Awareness and Preventative Care STROKE is an EMERGENCY Every Minute Counts Act FAST and Check for these signs: FACE Does the face look uneven? ARM Does one arm drift down? SPEECH Does their speech sound strange? TIME Call at any sign of stroke Stroke Risk Factors Atrial Fibrillation (irregular heartbeat) Diabetes Family history of stroke Heart Disease Heavy alcohol use High Blood Pressure High Cholesterol Physical inactivity and obesity Smoking Cigarette Smoking The facts are clear, cigarette smoking will shorten your life. Smoking can cause many illnesses along the way. As a healthcare provider, we recommend that you stop smoking. Assistance with quitting is available by contacting 2-267-CJDANOW. This is a free resource providing counseling, support, and referral. Or you may contact your personal physician. [employer] Suicide Prevention Lifeline: The National Suicide Prevention Lifeline is a national network of local crisis centers that provides free and confidential emotional support to people in suicidal crisis or emotional distress 24 hours a day, 7 days a week. Don't Wait! Stop a Heart Attack Before it Starts What is a heart attack? A heart attack is damage or to a part of the heart from severely decreased or lack of blood flow to the heart. Over time, arteries can become narrow from the buildup of fat and cholesterol, which is called plaque. The plaque can rupture causing a blood clot to form. When the blood clot forms, the artery can become severely narrowed or completely blocked, causing a heart attack. Heart attack is the leading cause of in the [place]. 85% of muscle damage occurs within the first 2 hours. Delay in the recognition of heart attack symptoms increases the chances of . Know the early symptoms of a heart attack: Nausea Feeling of fullness in chest Jaw Pain Pain that travels down one or both arms Fatigue/being tired Anxiety Back Pain Chest pressure, squeezing, or discomfort Shortness of breath Sweating, or a cold sweat Feeling of impending doom There are unusual signs of a heart attack, too! Women, the elderly, and diabetics may present with atypical symptoms: Fainting/dizziness Weakness Confusion Risk Factors for a Heart Attack Some heart disease risk factors, such as age and family history, cannot be changed. Others, like smoking and lack of exercise, can be changed. Smoking High Cholesterol High Blood Pressure Family History Obesity Age Gender (Males are at higher risk) Lack of Exercise Diabetes Diet Stress Excessive Alcohol Intake If you or someone you know is experiencing the signs and symptoms of a heart attack, DON???T DELAY. Call immediately and seek help. If someone collapses, perform CPR! Do not attempt to drive if you are having symptoms of heart attack. Hands-Only CPR Why Hands-Only CPR? Hands-Only CPR has been shown to be as effective as conventional CPR for cardiac arrests that occur outside of a hospital. Survival depends on immediately receiving CPR from someone nearby. How do you perform Hands-Only CPR? There are two easy steps: Call if you see a teen or adult collapse Push hard and fast in the center of the chest at a beat of 100 beats per minute. Save a life! 4 WAYS TO GET AHEAD OF SEPSIS SEPSIS is a MEDICAL EMERGENCY. Time matters! Infections put you and your family at risk for a life-threatening condition called sepsis. Sepsis is the body's extreme response to an infection. It is life-threatening, and without timely treatment, sepsis can rapidly lead to tissue damage, organ failure, and . Sepsis happens when an infection you already have-in your skin, lungs, urinary tract or somewhere else-triggers a chain reaction throughout your body. 1 PREVENT INFECTIONS Take good care of chronic conditions. Talk to your doctor about getting the recommended vaccines. 2 PRACTICE GOOD HYGIENE Wash your hands frequently. Keep cuts or open sores clean and covered until they are healed. 3 KNOW THE SYMPTOMS Confusion or disorientation Shortness of breath High heart rate Fever, shivering, or feeling very cold Extreme pain or discomfort Clammy or sweaty skin 4 ACT FAST Get medical care IMMEDIATELY if you suspect sepsis or if you have an infection that is not getting better or is getting worse. To learn more about sepsis and how to prevent infections, visit www.cdc.gov/sepsis. Test Results Laboratory or Other Results This Visit (last charted value for your 02/21/2022 visit) No Laboratory or Other Results This Visit Patient Name:HEYDI SIMS Rani I have received and understand this information and was given the opportunity to ask questions. Patient/Croze Cutter Helper Name: Patient/Croze Cutter Helper Signature: Relationship to Patient: Clinician/Hospital Croze Cutter Helper Signature: Date: documented in this encounter Plan of Treatment Upcoming Encounters Date Type Department Care Team (Late st Contact Info) Description 05/03/2025 1:00 PM EDT Office Visit [facility] Neurology - [address] [place] [address] Ivanna De La Garza MD [address] [place] [address] Aida Rueda MD [address] [place] [address] 08/17/2025 2:15 PM EST Office Visit [facility] - [place] [address] [place] [address] Ivanna De La Garza MD [address] [place] [address] documented as of this encounter Visit Diagnoses Not on filedocumented in this encounter Care Teams Diaphragm Builder Relationship Specialty Start Date End Date Case, Pat Saravia RN Nurse Navigator 01/07/23 01/27/24 Ivanna De La Garza MD [address] [place] [address] Hematology and Oncology 01/13/24 documented as of this encounter
--- OUTSIDE RECORDS SUMMARY | 2025-03-02 13:31 | XMS_ITS | Encounter Summary ---
Author Organization [employer] Address [address] [place] [address] Care Team Providers Care Acute Care Clinical Nurse Specialist Name Role Phone Case, Pat Saravia RN Unavailable Unavailable Ban De La Garza MD Unavailable [phone] Encounter Details Date Type Department Care Team (Late st Contact Info) Description 02/21/2022 Transcribed Document [facility] [place] Family Medicine [address] [place], [place] [id number] ProviderCollins MD [address] [place] [address] Social History Tobacco Use Types Packs/Day Years Used Date Smoking Tobacco: Never Assessed Sex and Gender Information Value Date Recorded Sex Assigned at Male 03/12/2022 9:01 PM CDT Legal Sex Male 9:01 PM CDT Gender Identity Male 03/12/2022 9:01 PM CDT Sexual Orientation Not on file documented as of this encounter Miscellaneous Notes * Cerner Conversion Note - Collins Montano MD - 02/21/2022 10:40 AM CDT Patient: HEYDI SIMS Age: 61 years Sex: Male : 1960 Associated Diagnoses: None Author: SOHA ORDONEZ PA Postoperative Information The patient presents for a port-a-cath removal requiring sedation. Review of Systems Constitutional: Negative. Eye: Negative. Ear/Nose/Mouth/Throat: Negative. Respiratory: Negative. Cardiovascular: Negative. Gastrointestinal: Negative. Genitourinary: Negative. Hematology/Lymphatics: Negative. Endocrine: Negative. Immunologic: Negative. Musculoskeletal: Negative. Integumentary: Negative. Neurologic: Negative. Psychiatric: Negative. All other systems are negative Health Status Allergies: Allergic Reactions (Selected) No Known Allergies, Allergies (1) Active Reaction No Known Allergies None Documented Current medications: (Selected) Inpatient Medications Ordered Zofran: 4 mg, IV Push, 1-Time, PRN: Nausea/Vomiting ceFAZolin: 2 Gram, 50 mL, 100 mL/Hr, IV Piggyback, PREOP Documented Medications Documented LORazepam 0.5 mg oral tablet: 1 Tab, Oral, BID, PRN: as needed for anxiety, 0 Refill(s) pantoprazole 40 mg oral delayed release tablet: 1 Tab, Oral, Daily, 30 Tab, 0 Refill(s) tamsulosin 0.4 mg oral capsule: 1 Cap, Oral, Daily, TAKE ONE CAPSULE BY MOUTH EVERY DAY AT BEDTIME, Home Medications (3) Active LORazepam 0.5 mg oral tablet 0.5 mg = 1 Tab, PRN, Oral, BID pantoprazole 40 mg oral delayed release tablet 40 mg = 1 Tab, Oral, Daily tamsulosin 0.4 mg oral capsule 0.4 mg = 1 Cap, Oral, Daily , Medications (2) Active Scheduled: (1) ceFAZolin/D5w 2 Gram 50 mL, IV Piggyback, PREOP Continuous: (0) PRN: (1) ondansetron 4 mg/2 mL inj 4 mg 2 mL, IV Push, 1-Time Problem list: All Problems At risk for sleep apnea / IMO [id number] / Confirmed Hypertension / SNOMED CT 32764067 / Confirmed 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 Family History: No family history items have been selected or recorded. Procedure history: total spleenectomy, partial gastrectomy, partial pancreatectomy. Social History Social & Psychosocial Habits Alcohol 10/30/2021 Alcohol Use History, Social Habits No Substance Abuse 10/30/2021 Recreational Drug Use History No Tobacco 10/30/2021 Smoking Status Former smoker, quit more Smokeless Tobacco Status Never . Physical Examination VS/Measurements Vital Signs/Vital Measures 02/21/2022 9:47 EDT Systolic Blood Pressure 169 mmHg HI Diastolic Blood Pressure 85 mmHg Temperature Source Temporal artery scanning Temperature Mode Fahrenheit Temperature, Fahrenheit 97.1 Deg F Clinical Temperature, C 36.2 Deg C Pulse Method Pulse Oximetry Peripheral Pulse Rate 75 bpm Respiratory Rate 18 Breaths/Min Oxygen Saturation 95 % Oxygen Therapy Mode Room air , Measurements from flowsheet : Measurements 02/21/2022 9:47 EDT Height Source Stated Height Entry Format [place] Height/Length, KOSOVAN (ft) 5 ft Height/Length K[place] 7 Inch CLINICALHEIGHT 170.18 cm [place] Body Weight 65 kg Weight Source Standing scale Weight Entry Format [place] Weight Slovenian lb 242 lb CLINICALWEIGHT 110 kg Body Surface Area (BSA) 2.19 m2 Body Mass Index 38 kg/m2 HI General: No acute distress. Respiratory: Lungs are clear to auscultation. Cardiovascular: Normal rate, No murmur, Right chest wall single lumen chest port . Gastrointestinal: Non-distended. Neurologic: Alert. Review / Management Results review: No qualifying data available. Impression and Plan Proceed with ordered procedure/exam . documented in this encounter Plan of Treatment Upcoming Encounters Date Type Department Care Team (Late st Contact Info) Description 05/03/2025 1:00 PM EDT Office Visit [facility] Neurology - [address] [place] [address] Ban De La Garza MD [address] [place] [address] Aida Rueda MD [address] [place] [address] 08/17/2025 2:15 PM EST Office Visit [facility] - [place] [address] [place] [phone] Ban De La Garza MD [address] [facility] [address] [place] [phone] documented as of this encounter Visit Diagnoses Not on filedocumented in this encounter Care Teams Acute Care Clinical Nurse Specialist Relationship Specialty Start Date End Date Case, Pat Saravia RN Nurse Navigator 01/07/23 01/27/24 Ban De La Garza MD [address] [facility] [address] [place] [phone] Hematology and Oncology 01/13/24 documented as of this encounter
--- OUTSIDE RECORDS SUMMARY | 2025-03-02 13:31 | XMS_ITS | Encounter Summary ---
Author Organization [employer] Address [address] [place] [address] Care Team Providers Care Acute Dialysis Registered Nurse Name Role Phone Ban De La Garza MD Unavailable [phone] Encounter Details Date Type Department Care Team (Late st Contact Info) Description 01/20/2025 Orders Only [facility] - [place] [address] [place] [phone] Provider, MD Collins [address] [place] [address] Social History Tobacco Use Types Packs/Day Years [...] Date Nik rded Speak language other than Kos[place] at home Not on file 10/03/2023 Want [...] Description 05/03/2025 1:00 PM EDT Office Visit [facility] Neurology - [address] [place] [address] [place] [address] Ban De La Garza MD [address] [place] [address] Aida Rueda MD [address] [place] [address] 08/17/2025 2:15 PM EST Office Visit [facility] - [place] [address] [place] [address] Ban De La Garza MD [address] [place] [address] documented as of this encounter Procedures Procedure Name Priority Date/Time Associated Diagnosis Comments EXTERNAL IMAGING - CT Routine 01/20/2025 2:20 PM EDT documented in this encounter Results * EXTERNAL IMAGING - CT (01/20/2025 2:20 PM EDT) Anatomical Region Laterality Modality Other us Historical Provider HEALTH MAINTENANCE Final Result documented in this encounter Visit Diagnoses Not on filedocumented in this encounter Care Teams Acute Dialysis Registered Nurse Relationship Specialty Start Date End Date Ban De La Garza MD [address] [place] [address] Hematology and Oncology 01/13/24 documented as of this encounter
--- OUTSIDE RECORDS SUMMARY | 2025-03-02 13:31 | XMS_ITS | Encounter Summary ---
Author Organization [employer] Address [address] [place] [address] Care Team Providers Care Manager Eligibility Name Role Phone Case, Pat Saravia RN Unavailable Unavailable Ban De La Garza MD Unavailable Encounter Details Date Type Department Care Team (Late st Contact Info) Description 02/21/2022 Transcribed Document [facility] [place] [address] [place] [address] ProviderCollins MD [address] [place] [address] Social History Tobacco Use Types Packs/Day Years Used Date Smoking Tobacco: Never Assessed Sex and Gender Information Value Date Recorded Sex Assigned at Male 03/12/2022 9:01 PM CDT Legal Sex Male 9:01 PM CDT Gender Identity Male 03/12/2022 9:01 PM CDT Sexual Orientation Not on file documented as of this encounter Miscellaneous Notes * Cerner Conversion Note - Collins Montano MD - 02/21/2022 12:19 PM CDT Patient Education Materials Follows: Tissue Adhesive Wound Care Some cuts and [...] cannot use soap and water, use hand bar gauger and lubricator tender. ? Change the bandage as often as told by your doctor. ? Leave skin glue in place. It will fall off on its own after 7?10 days. ??? Do not scratch, rub, or [...] scar, or cover it up. ??? Take hmni-bcd-reeqmpr and prescription medicines only as told by [...] provider. Document Revised: 07/28/2020 Document Reviewed: 07/28/2020 [employer] Patient Education ? 2020 [employer] Implanted Port Removal Home Guide An [...] implanted port has two main parts: ??? [place]. The reservoir is the part where a [...] water are not available, use alcohol-based hand bar gauger and lubricator tender. ? Change your dressing as told by [...] provider. Document Revised: 01/15/2021 Document Reviewed: 01/15/2021 [employer] [facility] Patient Education ?? 2020 [employer] Pharmacology Moderate Conscious Sedation, Adult, Care After This [...] eating solid foods. General instructions ??? Take ppan-qwn-pcmnlpm and prescription medicines only as told by [...] provider. Document Revised: 12/29/2020 Document Reviewed: 07/27/2020 [employer] Patient Education ? 2020 [employer] documented in this encounter Plan of Treatment Upcoming Encounters Date Type Department Care Team (Late st Contact Info) Description 05/03/2025 1:00 PM EDT Office Visit [facility] Neurology - [facility] [address] [place] [phone] Ban De La Garza MD [address] [facility] [address] [place] [address] Aida Rueda MD [address] [place] [address] 08/17/2025 2:15 PM EST Office Visit [facility] - [place] [address] [place] [address] Ban De La Garza MD [address] [facility] [address] [place] [address] documented as of this encounter Visit Diagnoses Not on filedocumented in this encounter Care Teams Manager Eligibility Relationship Specialty Start Date End Date Case, Pat Saravia, RN Nurse Navigator 01/07/23 01/27/24 Ban De La Garza MD [address] [facility] [address] [place] [address] Hematology and Oncology 01/13/24 documented as of this encounter
--- OUTSIDE RECORDS SUMMARY | 2025-03-02 13:31 | XMS_ITS | Encounter Summary ---
Author Organization [employer] Address [address] [place] [address] Care Team Providers Care Bread Wrapper Name Role Phone Case, Pat Saravia RN Unavailable Unavailable Ban De La Garza MD Unavailable [phone] Encounter Details Date Type Department Care Team (Late st Contact Info) Description 02/21/2022 Transcribed Document [facility] [place] [address] [place], [place] [id number] ProviderCollins MD [address] [place] [address] Social History Tobacco Use Types Packs/Day Years Used Date Smoking Tobacco: Never Assessed Sex and Gender Information Value Date Recorded Sex Assigned at Male 03/12/2022 9:01 PM CDT Legal Sex Male 9:01 PM CDT Gender Identity Male 03/12/2022 9:01 PM CDT Sexual Orientation Not on file documented as of this encounter Miscellaneous Notes * Cerner Conversion Note - Collins Montano MD - 02/21/2022 11:23 AM CDT Patient: HEYDI SIMS Age: 61 years Sex: Male : 1960 Associated Diagnoses: None Author: ARETHA RICHEY MD-RAD Pre-OP/Procedure Diagnosis: Large B cell lymphoma Indication: Request for catheter removal Procedure Performed: Port removal Procedural MD: Jean Hand Bindery Assembly Worker: Sedation: None Findings: Successful removal of chest port Complications: None EBL: Minimal Specimen(s) Removed: _ None Full report to follow. documented in this encounter Plan of Treatment Upcoming Encounters Date Type Department Care Team (Late st Contact Info) Description 05/03/2025 1:00 PM EDT Office Visit [facility] Neurology - [address] [place] [address] [place] [address] Ban De La Garza MD [address] [place] [address] Aida Rueda MD [address] [place], [place] [id number] 08/17/2025 2:15 PM EST Office Visit [facility] - [place] [address] [place] [address] Ban De La Garza MD [address] [place] [address] documented as of this encounter Visit Diagnoses Not on filedocumented in this encounter Care Teams Bread Wrapper Relationship Specialty Start Date End Date Case, Pat Saravia, RN Nurse Navigator 01/07/23 01/27/24 Ban De La Garza MD [facility] [place] [address] Hematology and Oncology 01/13/24 documented as of this encounter
--- OUTSIDE RECORDS SUMMARY | 2025-03-02 13:31 | XMS_ITS | Encounter Summary ---
Author Organization [email or web address] Address [address] [place] [address] Care Team Providers Care Mammography Technician Name Role Phone Case, Pat Saravia RN Unavailable Unavailable Ban De La Garza MD Unavailable [phone] Encounter Details Date Type Department Care Team (Late st Contact Info) Description 02/21/2022 Transcribed Document [facility] [place] [address] [place] [address] ProviderCollins MD [address] [place] [address] Social History Tobacco Use Types Packs/Day Years Used Date Smoking Tobacco: Never Assessed Sex and Gender Information Value Date Recorded Sex Assigned at Male 03/12/2022 9:01 PM CDT Legal Sex Male 9:01 PM CDT Gender Identity Male 03/12/2022 9:01 PM CDT Sexual Orientation Not on file documented as of this encounter Miscellaneous Notes * Cerner Conversion Note - Collins ProviderMD - 02/21/2022 9:47 AM CDT Pre Procedure Adult Entered On: 02/21/2022 9:54 EDT Performed On: 02/21/2022 9:47 EDT by KEVIN FOFANA RN Height and Weight, Clinical Dosing Height Source : Stated Height Entry Format : [place] Height, Feet : 5 ft(Converted to: 152 cm, 60 Inch) Height, Inches : 7 Inch(Converted to: 0 ft 7 Inch, 17.78 cm) Clinical Height : 170.18 cm Weight Source : Standing scale Weight Entry Format : [place] Clinical Dosing Weight : 110 kg Weight, Pounds : 242 lb Body Surface Area (BSA) : 2.19 m2 Body Mass Index : 38 kg/m2 (HI) [place] Body Weight : 65 kg KEVIN FOFANA RN - 02/21/2022 9:47 EDT Health Histories Smoking Status : Former smoker, quit more than 30 days ago Smokeless Tobacco Status : Never KEVIN FOFANA RN - 02/21/2022 9:47 EDT Social History (As Of: 02/21/2022 09:54:45 EDT) Tobacco: Former smoker, quit more than 30 days ago Smoking Status. Never Smokeless Tobacco Status. (Last Updated: 10/30/2021 08:29:20 EST by NNEKA ZHANG RN) Alcohol: Alcohol Use History No. (Last Updated: 10/30/2021 08:29:24 EST by NNEKA ZHANG RN) Substance Abuse: Drug Use Hx: No. (Last Updated: 10/30/2021 08:29:28 EST by NNEKA ZHANG RN) Infectious Disease History Does patient have symptoms of COVID-19? : No Tested for COVID19 in the past 14 days : No, Patient stated Does the Patient state known exposure to a COVID-19 positive case in the last 14 days? : No Patient Vaccinated for COVID-19 : Fully vaccinated KEVIN FOFANA RN - 02/21/2022 9:47 EDT Infectious Disease Risk Screening Grid Cough < 2 wks of unknown origin : NO Cough > 2 weeks : NO Blood in Sputum : NO Fever or self-reported Fever : NO Rash of unknown origin : NO Headache : NO Stiff neck : NO Night Sweats : NO Unexplained Weight Loss : NO Diarrhea (3 episode per day) : NO KEVIN FOFANA RN - 02/21/2022 9:47 EDT Physical contact outside [place] in the last 30 days : No Hospitalized in Foreign Country : No Infectious Disease History : Chicken pox/Shingles, Hepatitis A INF Disease TB Screening Calc : 0 INF Disease Recent Travel Calc : 0 KEVIN FOFANA RN - 02/21/2022 9:47 EDT COVID19 PreProcedure Screening Is this an Emergent or Add on Procedure? : No Date PreProcedure COVID-19 test known? : No Has patient been isolated since the test : No Exposed to COVID19 symptoms since test? : No KEVIN FOFANA RN - 02/21/2022 9:47 EDT Anesthesia/Transfusion History Family History of Anesthesia Reaction : No prior transfusion(s) Transfusion History : Prior anesthesia without reaction Family History of Anesthesia Reaction : None KEVIN FOFANA RN - 02/21/2022 9:47 EDT Functional Assessment Living Situation : Home Patient Lives With : Spouse Persons Assisting Patient at Home : Spouse Current Daily Living Assistance : None Sensory Deficits : Hearing deficit, right ear, Hearing deficit, left ear Mobility Assistance Prior to Admission : Independent SANCHEZ Hx Falls Immediate/Within 3 Months : No Current Home Treatments : None KEVIN FOFANA RN - 02/21/2022 9:47 EDT [place] Suicide Severity Rating Scale (C-SSRS) CSSRS Past Month Wish to be : No CSSRS Past Month Suicidal Thoughts : No CSSRS Lifetime Suicide Behavior : No Suicide Severity Rating Score : 0 Suicide Severity Rating : No Additional Care Required at this time KEVIN FOFANA RN - 02/21/2022 9:47 EDT Psychosocial History Does Someone Depend on You for Care? : No Do You Have a History of the Following? : Patient denies history Currently in Unsafe Situation : No Restraining Order Against Another Person : No Do You Have a Support System? : Yes Hospital/DC Financial Concerns : No Stressors Affecting Hospitalization/DC : No KEVIN FOFANA RN - 02/21/2022 9:47 EDT Advance Directive Patient has Advance Directive *Q : No, patient refuses Advance Directive information KEVIN FOFANA RN - 02/21/2022 9:47 EDT Teaching/Learning Assessment Barriers To Learning : None evident Individuals Taught : Patient Readiness to Learn : Cooperative Baseline Knowledge of Topic : Good Readiness to Learn : Demonstration, Explanation Learning Style Preferences Patient : None Learning Style Preferences Family : None KEVIN FOFANA RN - 02/21/2022 9:47 EDT Education Topics, Periop Preadmission Perioperative Education Grid Arrival Time/Place : Verbalizes understanding, Returns demonstration Central Lines : Verbalizes understanding, Returns demonstration CHG Preoperative Bathing/Cloths : Verbalizes understanding, Returns demonstration Falls : Verbalizes understanding, Returns demonstration Infection Control : Verbalizes understanding, Returns demonstration IV's : Verbalizes understanding, Returns demonstration NPO Status/Directions : Verbalizes understanding, Returns demonstration Pain Management : Verbalizes understanding, Returns demonstration Postoperative Care Preparations : Verbalizes understanding, Returns demonstration Preprocedure Preparations : Verbalizes understanding, Returns demonstration Preprocedure Tests/Labs : Verbalizes understanding, Returns demonstration Responsible Adult : Verbalizes understanding, Returns demonstration Take/Hold Medications Pre-Procedure : Verbalizes understanding, Returns demonstration KEVIN FOFANA RN - 02/21/2022 9:47 EDT General Info Arrived From : Home Mode of Arrival on Unit : Ambulatory Legal Guardian : Spouse Legal Guardian : No Support Person/Patient Dust Box Tender : Yes Want Family/Rep/Phys Notified of Admit : No Emergency Contact #1 : Shayla Emergency Contact #1 Emergency Contact #1 Relationship : spouse Emergency Contact #2 : n/a Emergency Contact #2 Phone Number : n/a Emergency Contact #2 Relationship : n/a Chief Complaint : port removal Information Obtained From : Patient, Spouse Primary Language : [place] Leone[place] Preferred Communication Mode : Verbal Communication Barrier : None Borough Coordinator Needed : No KEVIN FOFANA RN - 02/21/2022 9:47 EDT Vital Measurements Temperature Source : Temporal artery scanning Temperature Mode : Fahrenheit Temperature, Fahrenheit : 97.1 Deg F Clinical Temperature, C : 36.2 Deg C Pulse Method : Pulse Oximetry Peripheral Pulse Rate : 75 bpm Respiratory Rate : 18 Breaths/Min Systolic Blood Pressure : 169 mmHg (HI) Diastolic Blood Pressure : 85 mmHg Oxygen Saturation : 95 % Oxygen Therapy Mode : Room air KEVIN FOFANA RN - 02/21/2022 9:47 EDT Sleep Apnea Risk Assmt Hx of Obstructive Sleep Apnea Diagnosis : No Snore Loudly : Yes Tired, Fatigued, or Sleepy During Day : No Observed Stopping Breathing During Sleep : No Have/Are Being Treated for Hypertension : Yes BMI Greater Than 35 kg/m2 : No Age over 50 Years Old : Yes Neck Circumference Greater Than 40 cm : Yes Gender Male : Yes STOP-BANG Sleep Apnea Risk Level Score : 5 KEVIN FOFANA RN - 02/21/2022 9:47 EDT [place] Scale [place] Sensory Perception : No impairment [place] Moisture : Moist [place] Activity : Walks occasionally [place] Mobility : No limitation [place] Nutrition : Probably inadequate [place] Friction and Shear : No apparent problem [place] Score : 18 KEVIN FOFANA RN - 02/21/2022 9:47 EDT Pain Assessment Pain Assessment : Initial assessment Pain Scale Used : 0-10 Scale KEVIN FOFANA RN - 02/21/2022 9:47 EDT Fall Risk Scales ABCs Fall Injury Risk Identification : None Injury Moderate to High Risk Interventions : Transport methods appropriate to patient, Visual cues in place SANCHEZ Hx Falls Immediate/Within 3 Months : No Sanchez Secondary Diagnosis : No SANCHEZ Use of Ambulatory Aid : None SANCHEZ IV Therapy or IV Access : Yes Sanchez Gait/Transferring : Normal, bedrest, immobile Sanchez Mental Status : Oriented to own ability Sanchez Fall Risk Score : 20 SANCHEZ Fall Scale Risk Level : 0-24 Low Risk [place] Fall Interventions : Adequate lighting, Assistive devices within reach, Bed in low position, Call device within reach, Fall prevention handout/education per facility policy, Frequent orientation to call device, Frequent orientation to surroundings, Hourly comfort/safety rounds, Non-slip footwear, Personal items within reach, Reinforced to call for assistance before getting out of bed, Room free of clutter/spills, Upper side-rails up, Wheels locked, Wires/Cords secured Fall Risk Scale Calc Temp : 0 KEVIN FOFANA RN - 02/21/2022 9:47 EDT Valuables and Belongings Valuables and Belongings : Clothing Clothing : Common streetwear Clothing Disposition : Bedside Belongings Disposition Comment : Valuables with spouse-refuses safe. KEVIN FOFANA RN - 02/21/2022 9:47 EDT Pain Scale Intensity : 0 KEVIN FOFANA RN - 02/21/2022 9:47 EDT Image 4 - Images currently included in the form version of this document have not been included in the text rendition version of the form. Electronically signed by Elsa Hairston Conversion Application Software Developer [employer] at 12/31/2022 1:16 PM CDT documented in this encounter Plan of Treatment Upcoming Encounters Date Type Department Care Team (Late st Contact Info) Description 05/03/2025 1:00 PM EDT Office Visit [facility] Neurology - [address] [place] [address] Ban De La Garza MD [facility] [address] [place] [address] Aida Rueda MD [address] [place] [address] 08/17/2025 2:15 PM EST Office Visit [facility] - [place] [address] [place] [address] Ban De La Garza MD [facility] [place] [id number] documented as of this encounter Visit Diagnoses Not on filedocumented in this encounter Care Teams Mammography Technician Relationship Specialty Start Date End Date Case, Pat Saravia, RN Nurse Navigator 01/07/23 01/27/24 Ban De La Garza MD [address] [place] [address] Hematology and Oncology 01/13/24 documented as of this encounter
--- OUTSIDE RECORDS SUMMARY | 2025-03-02 13:31 | XMS_ITS | Clinical Summary ---
Author Organization [employer] Address [address] [place] [address] Care Team Providers Care Personal Financial Representative Name Role Phone Ban De La Garza MD Unavailable [phone] Allergies Active Allergy Reactions Criticality Noted Date [...] HTN (hypertension) 10/16/2021 Obesity (BMI 30.0-34.9) 10/16/2021 Encounters Date Type Department Care Team Description 02/22/2025 Orders Only [facility] - [place] [address] [place] [address] Ban De La Garza MD 02/02/2025 Orders Only [facility] - [place] [address] [place] [address] Reanna Thomas PA-C Tremor (Primary Dx) 02/02/2025 Telephone [facility] - [place] [address] [place] [address] Ban De La Garza MD Advice Only 01/31/2025 2:30 PM EDT Office Visit [facility] - [place] [address] [place] [address] Ban De La Garza MD History of non-Hodgkin lymphoma (Primary Dx); Pulmonary edema; GERD (gastroesophageal reflux disease); Tremor 01/31/2025 Orders Only [facility] - [place] [address] [place] [address] Ban De La Garza MD 01/20/2025 Orders Only [facility] - [place] [address] [place] [address] Provider, MD Collins from Last 3 Months Family History Medical History Relation Name Comments No Known Problem Brother Cancer Father No Known Problem Maternal Aunt No Known Problem Maternal Grandfather No Known Problem Maternal Grandmother No Known Problem Maternal Uncle Cancer Mother No Known Problem Other No Known Problem Paternal Aunt No Known Problem Paternal Grandfather No Known Problem Paternal Grandmother No Known Problem Paternal Uncle No Known Problem Sister Relation Name Status Comments Brother Father Other esophageal canc er Maternal Aunt Maternal Grandfather Maternal Grandmother Maternal Uncle Mother Other Pancreatic canc er Other Paternal Aunt Paternal Grandfather Paternal Grandmother Paternal Uncle Sister Social History Tobacco Use Types Packs/Day Years [...] Date Nik rded Speak language other than Norwegian at home Not on file 10/03/2023 Want [...] Description 05/03/2025 1:00 PM EDT Office Visit [facility] Neurology - [place] [id number] [place] [address] Ban De La Garza MD [address] [facility] [address] [place] [address] Aida Rueda MD [address] [facility] [address] [place], [place] [address] 08/17/2025 2:15 PM EST Office Visit [facility] - [facility] [address] [place] [address] Ban De La Garza MD [address] [facility] [address] [place], [place] [id number] Health Maintenance Due Date Last Done Comments CT Colonography 1960 Colonoscopy 1960 Colorectal Cancer Screening 1960 FOBT/FIT 1960 Fit-DNA (Cologuard) 1960 Sigmoidoscopy 1960 Depression Screening (12+) 1972 HIV Screening 1975 DTAP/TDAP/TD VACCINES (1 - Tdap) 1979 Shingles Vaccine (Zoster) (1 of 2) 1979 Lipid Panel 1995 Respiratory Syncytial Virus (RSV) Adult or (1 - Risk 60-74 years 1-dose series) 2020 COVID-19 VACCINE ( - season) 2024 08/03/2021, 10/18/2020, 09/19/2020 Influenza Vaccine (Season Ended) 2025 Tobacco Cessation Counseling and Screening (12+) 01/31/2026 01/31/2025 Pneumococcal 50+ years (3 of 3 - PPSV23, PCV20 or PCV21) 03/05/2027 03/05/2022, 10/22/2021 Hepatitis C Screening Completed 10/24/2021 Procedures Procedure Name Priority Date/Time Associated Diagnosis Comments PROBNP Routine 01/31/2025 1:56 PM EDT History of non-Hodgkin lymphoma Pulmonary edema LACTATE DEHYDROGENASE (LDH) Routine 01/31/2025 1:56 PM EDT History of non-Hodgkin lymphoma Pulmonary edema COMPREHENSIVE METABOLIC PANEL Routine 01/31/2025 1:56 PM EDT History of non-Hodgkin lymphoma Pulmonary edema CBC W/ AUTO DIFF Routine 01/31/2025 1:5 6 PM EDT History of non-Hodgkin lymphoma Pulmonary edema EXTERNAL IMAGING - CT Routine 01/20/2025 2:20 PM EDT HEPATITIS PANEL, ACUTE Routine 9:58 AM EST from Last 3 Months or Most Recently Relevant to Health Maintenance Results * (ABNORMAL) CBC with automated diff (01/31/2025 1:56 PM EDT) Pathologist [facility] WBC 9.0 4.5 - 11.0 K/ L [...] Final Res ult [facility] [place] [address] [place] [address], [facility] [phone] * (ABNORMAL) PROBNP (01/31/2025 1:56 PM EDT) [facility] ProBNP (pg/mL) 219(H) 0 - 125 pg/mL 01/31/2025 3:05 PM EDT [facility] Blood Venipuncture / Unknown 01/31/2025 1:56 PM EDT 01/31/2025 1:59 PM EDT Ban De La Garza MD LAB BLOOD ORDERABLES Final Res ult Performing Organization Address [facility] Co de Phone Number [facility] [address] [phone] * Lactate dehydrogenase (LDH) (01/31/2025 1:56 PM EDT) [facility] LDH 212 87 - 241 U/L 01/31/2025 3:05 PM EDT [facility] Blood Venipuncture / Unknown 01/31/2025 1:56 PM EDT 01/31/2025 1:59 PM EDT Ban De La Garza MD LAB BLOOD ORDERABLES Final Res ult Performing Organization Address [facility] Co de Phone Number [facility] [address] [place] [address], [facility] [phone] * (ABNORMAL) Comprehensive metabolic panel (01/31/2025 1:56 PM EDT) [facility] Sodium 137 136 - 146 meq/L 01/31/2025 [...] 74 - 106 mg/dL 01/31/2025 3:05 PM [facility] BUN 12 7 - 22 mg/dL 01/31/2025 3:05 PM [facility] Creatinine 0.95 0.70 - 1.30 mg/dL 01/31/2025 3:05 PM [facility] BUN/Creatinine 13 8 - 20 01/31/2025 3:05 PM [facility] Albumin 3.9 3.4 - 5.0 g/dL 01/31/2025 3:05 PM [facility] Alkaline Phosphatase 86 27 - 136 U/L 01/31/2025 3:05 PM [facility] ALT 26 12 - 78 U/L 01/31/2025 3:05 PM [facility] AST 19 5 - 37 U/L 01/31/2025 3:05 PM [facility] Total Bilirubin 0.9 0.2 - 1.3 mg/dL 01/31/2025 3:05 PM [facility] Protein, Total 7.8 6.4 - 8.2 gm/dL 01/31/2025 3:05 PM [facility] Anion Gap 11 9 - 20 01/31/2025 3:05 PM [facility] A/G Ratio 1.0(L) 1.1 - 2.5 01/31/2025 3:05 PM [facility] Globulin 3.9 1.5 - 4.5 g/dL 01/31/2025 3:05 PM [facility] Osmolality Calc 274.2 mOsm/kg 3:05 PM [facility] eGFR (mL/min/1.73m2) >60 >=60 mL/min/1.7 3m2 01/31/2025 3:05 PM [facility] Comment:ESTIMATED GFR IS NOT ACCURATE CREATININE CLEARANCE IN PREDICTING GLOMERULAR FILTRATION RATE. ESTIMATED GFR IS NOT APPLICABLE FOR DIALYSIS PATIENTS. Blood Venipuncture / Unknown 01/31/2025 1:56 PM EDT 01/31/2025 1:59 PM EDT Ban De La Garza MD LAB BLOOD ORDERABLES Final Res ult [facility] [address] [phone] * EXTERNAL IMAGING - CT (01/20/2025 2:20 PM EDT) Anatomical Region Laterality Modality Other Result [facility] Historical Provider HEALTH MAINTENANCE Final Result * [...] 9:58 AM EST 10/24/2021 3:36 PM EST [facility] Historical Provider LAB BLOOD ORDERABLES Fi nal Result [facility] [address] [place] [address], [facility] [phone] from Last 3 Months or Most Recently Relevant to Health Maintenance Insurance BLUE CROSS/BLUE SHIELD Care Teams Personal Financial Representative Relationship Specialty Start Date End Date Ban De La Garza MD [address] [facility] [address] [place] [address] Hematology and Oncology 01/13/24
--- OUTSIDE RECORDS SUMMARY | 2025-03-02 13:31 | XMS_ITS | Encounter Summary ---
Author Organization [employer] Address [address] [place] [address] Care Team Providers Care Crystal Flat Grinder Name Role Phone Ban De La Garza MD Unavailable [phone] Reason for Referral * MRI (Routine) - Pending Review Specialty Diagnoses / Procedures Referred By Mitesh toth Referred To Contact Radiology Diagnoses Tremor Procedures MR Brain Without & With IV Contrast Reanna Thomas PA-C [address] [address] Phone: tel: fax: Referral ID Status Reason Start Date Expiration Date V isits Requested Visits Authorized [id number] Pending Review 02/02/2025 07/14/2025 1 1 Encounter Details Date Type Department Care Team (Late st Contact Info) Description 02/02/2025 Orders Only [facility] - [place] [address] [place] [address] Reanna Thomas PA-C [address] [place] [address] [place] [address] Tremor (Primary Dx) Social History Tobacco Use Types Packs/Day Years [...] Date Nik rded Speak language other than Ghanaian at home Not on file 10/03/2023 Want [...] Description 05/03/2025 1:00 PM EDT Office Visit [facility] Neu[facility] - [facility] [address] [place] [address] Ban De La Garza MD [address] [place] [address] [place], [place] [address] Aida Rueda MD [address] [place] [address] 08/17/2025 2:15 PM EST Office Visit [facility] - [place] [address] [place] [address] Ban De La Garza MD [facility] [address] [place] [address] Scheduled Orders Name Type Priority Associated Diagnoses Orde r Schedule MR Brain Without & With IV Contrast Imaging Routine Tremor Expected: 02/02/2025, Expires: 03/05/2026 documented as of this encounter Visit Diagnoses Diagnosis Tremor- Primary Abnormal involuntary movements documented in this encounter Care Teams Crystal Flat Grinder Relationship Specialty Start Date End Date Ban De La Garza MD [facility] [address] [place] [address] Hematology and Oncology 01/13/24 documented as of this encounter
--- OUTSIDE RECORDS SUMMARY | 2025-03-02 13:31 | XMS_ITS | Clinical Summary ---
Author Organization [facility] Address [address] [place] [address] Care Team Providers Care Engineering Supervisor Name Role Phone Moreno Witt MD Primary Care Provider [phone] Allergies Active Allergy Reactions Criticality Noted Date [...] 2005 UKY-Zoster Vaccines (1 of 2) 2010 FRM-ETENX-42 Vaccine (4 - season) 2024 08/03/2021, 10/18/2020, [...] patient's age to complete this topic [place] [address] [place] [address] Care Teams Engineering Supervisor Relationship Specialty Start Date End Date Moreno Witt MD [address] [place] [address] PCP - General 10/16/21
--- OUTSIDE RECORDS SUMMARY | 2025-03-02 13:32 | XMS_ITS | Encounter Summary ---
Author Organization [employer] Address [address] [place] [address] Care Team Providers Care Sodder Name Role Phone Case, aPt Saravia RN Unavailable Unavailable Ivanna De La Garza MD Unavailable [phone] Encounter Details Date Type Department Care Team (Late st Contact Info) Description 10/30/2021 Transcribed Document [facility] Family Medicine [address] [place] [address] ProviderCollins MD [address] [place], [place] [id number] Social History Tobacco Use Types Packs/Day Years Used Date Smoking Tobacco: Never Assessed Sex and Gender Information Value Date Recorded Sex Assigned at Male 03/12/2022 9:01 PM CDT Legal Sex Male 9:01 PM CDT Gender Identity Male 03/12/2022 9:01 PM CDT Sexual Orientation Not on file documented as of this encounter Miscellaneous Notes * Cerner Conversion Note - Collins Montano MD - 10/30/2021 11:22 AM COLD ROLLER [facility] [place] [address] HEYDI SIMS :1960 Visit Time:10/30/2021 Your Visit Summary Your Care Team Admitting Physician - IVANNA DE LA GARZA MD-ONC Attending Physician - IVANNA DE LA GARZA MD-ONC Primary Care Physician - RADHA FIORE (REF), MD-INT Referring Physician - IVANNA DE LA GARZA MD-ONC Your Diagnosis Diffuse large B-cell lymphoma, spleen, Diffuse large B-cell lymphoma, spleen These Are Your Goals No qualifying data available. Discharge Vitals Temperature 36.4 ??C Heart Rate (Monitored) 80 Respiratory Rate 19 Blood Pressure 124/73 What to do next Instructions From Your Care Team Diet after Discharge: Resume usual diet as tolerated Activity after Discharge: Rest and relax today, No strenuous activity Driving Restrictions: No driving for 24 hours. Showering/Bathing: Cover the site for the first week Medications: No changes to your current home medications. Dressing Instructions: You may remove the top clear dressing and gauze pad in 3 days. There is skin glue and steri-strips that will come off on their own. Follow-Up Appointments Follow Up with IVANNA DE LA GARZA When Within 2 to 3 days Comments Follow-up as instructed Where: [address] [place] [address] [facility] (1) Medications What How Much When Instructions Next Dose bisoprolol (bisoprolol 5 mg oral tablet) 1 Tablet(s) Oral Every Day LORazepam (LORazepam 0.5 mg oral tablet) 1 Tablet(s) Oral Two Times A Day as needed for as needed for anxiety metoclopramide (metoclopramide 10 mg oral tablet) 1 Tablet(s) Oral Four Times A Day ondansetron (ondansetron 4 mg oral tablet, disintegrating) 1 Tablet(s) Oral Every 8 Hours as needed for Nausea oxyCODONE (oxyCODONE 5 mg oral tablet) 1 Tablet(s) Oral Every 6 Hours as needed for as needed for pain pantoprazole (pantoprazole 40 mg oral delayed release [...] This Visit No Immunizations Found Education Materials Implanted Port Insertion, Care After This sheet gives you information about how to care for yourself after your procedure. Your health care provider may also give you more specific instructions. If you have problems or questions, contact your health care provider. What can I expect after the procedure? After the procedure, it is common to have: ??? Discomfort at the port insertion site. ??? Bruising on the skin over the port. This should improve over 3???4 days. Follow these instructions at home: Port care ??? After your port is placed, you will get a stripping and booking machine operator's information card. The card has information about your port. Keep this card with you at all times. ??? Take care of the port as told by your health care provider. Ask your health care provider if you or a family member can get training for taking care of the port at home. A home health care nurse may also take care of the port. ??? Make sure to remember what type of port you have. Incision care ??? Follow instructions from your health care provider about how to take care of your port insertion site. Make sure you: ? Wash your hands with soap and water before and after you change your bandage (dressing). If soap and water are not available, use hand watershed engineer. ? Change your dressing as told by your health care provider. ? Leave stitches (sutures), skin glue, or adhesive strips in place. These skin closures may need to stay in place for 2 weeks or longer. If adhesive strip edges start to loosen and curl up, you may trim the loose edges. Do not remove adhesive strips completely unless your health care provider tells you to do that. ??? Check your port insertion site every day for signs of infection. Check for: ? Redness, swelling, or pain. ? Fluid or blood. ? Warmth. ? Pus or a bad smell. Activity ??? Return to your normal activities as told by your health care provider. Ask your health care provider what activities are safe for you. ??? Do not lift anything that is heavier than 10 lb (4.5 kg), or the limit that you are told, until your health care provider says that it is safe. General instructions ??? Take tahu-pon-tychhfz and prescription medicines only as told by your health care provider. ??? Do not take baths, swim, or use a hot tub until your health care provider approves. Ask your health care provider if you may take showers. You may only be allowed to take sponge baths. ??? Do not drive for 24 hours if you were given a sedative during your procedure. ??? Wear a medical alert bracelet in case of an emergency. This will tell any health care providers that you have a port. ??? Keep all follow-up visits as told by your health care provider. This is important. Contact a health care provider if: ??? You cannot flush your port with saline as directed, or you cannot draw blood from the port. ??? You have a fever or chills. ??? You have redness, swelling, or pain around your port insertion site. ??? You have fluid or blood coming from your port insertion site. ??? Your port insertion site feels warm to the touch. ??? You have pus or a bad smell coming from the port insertion site. Get help right away if: ??? You have chest pain or shortness of breath. ??? You have bleeding from your port that you cannot control. Summary ??? Take care of the port as told by your health care provider. Keep the stripping and booking machine operator's information card with you at all times. ??? Change your dressing as told by your health care provider. ??? Contact a health care provider if you have a fever or chills or if you have redness, swelling, or pain around your port insertion site. ??? Keep all follow-up visits as told by your health care provider. This information is not intended to replace advice given to you by your health care provider. Make sure you discuss any questions you have with your health care provider. Document Revised: 03/30/2019 Document Reviewed: 03/30/2019 [employer] Patient Education ?? 2020 [employer] Moderate Conscious Sedation, Adult, Care After [...] eating solid foods. General instructions ??? Take mpot-mmq-gzikgze and prescription medicines only as told by [...] provider. Document Revised: 12/29/2020 Document Reviewed: 07/27/2020 [employer] Patient Education ?? 2020 [employer]. Emergency Awareness and Preventative Care STROKE is [...] Assistance with quitting is available by contacting 8-684-CUIMNOW. This is a free resource providing counseling, support, and referral. Or you may contact your personal physician. National Suicide Prevention Lifeline: The National Suicide Prevention [...] This Visit (last charted value for your 10/30/2021 visit) Microbiology 10/30/2021 7:33 AM SARS-CoV-2 (COVID19 PCR): Negative Coagulation 10/30/2021 8:06 AM INR: 1.0 -- Normal range between ( 0.9 and 1.2 ) PT: 11.2 Second(s) -- Normal range between ( 9.2 and 12.0 ) Patient Name:LEVI HEYDI Rani I have received and understand this information and was given the opportunity to ask questions. Patient/Senior Credit Analyst Name: Patient/Senior Credit Analyst Signature: Relationship to Patient: Clinician/Hospital Senior Credit Analyst Signature: Date: documented in this encounter Plan of Treatment Upcoming Encounters Date Type Department Care Team (Late st Contact Info) Description 05/03/2025 1:00 PM EDT Office Visit [facility] Neurology - [place] [address] [place] [address] Ivanna De La Garza MD [address] [address] [place] [address] Aida Rueda MD [address] [place], [place] [id number] 08/17/2025 2:15 PM EST Office Visit [facility] - [place] [address] [place] [address] Ivanna De La Garza MD [address] [place] [address] documented as of this encounter Visit Diagnoses Not on filedocumented in this encounter Care Teams Sodder Relationship Specialty Start Date End Date Case, Pat Saravia, RN Nurse Navigator 01/07/23 01/27/24 Ivanna De La Garza MD [address] [place] [address] [place] [address] Hematology and Oncology 01/13/24 documented as of this encounter
--- OUTSIDE RECORDS SUMMARY | 2025-03-02 13:33 | XMS_ITS | Encounter Summary ---
Author Organization [employer] Address [address] [place] [address] Care Team Providers Care Dust Collector Attendant Name Role Phone Case, Pat Saravia RN Unavailable Unavailable Ban De La Garza MD Unavailable [phone] Encounter Details Date Type Department Care Team (Late st Contact Info) Description 10/30/2021 Transcribed Document [facility] Family Medicine [address] [place] [address] ProviderCollins MD [address] [place] [address] Social History Tobacco Use Types Packs/Day Years Used Date Smoking Tobacco: Never Assessed Sex and Gender Information Value Date Recorded Sex Assigned at Male 03/12/2022 9:01 PM CDT Legal Sex Male 9:01 PM CDT Gender Identity Male 03/12/2022 9:01 PM CDT Sexual Orientation Not on file documented as of this encounter Miscellaneous Notes * Cerner Conversion Note - Collins Montano MD - 10/30/2021 10:34 AM SOLE BUFFER Patient: HEYDI SIMS Age: 61 years Sex: Male : 1960 Associated Diagnoses: None Author: ARETHA RICHEY MD-RAD Pre-OP/Procedure Diagnosis: _Unknown Cancer Indication: Need for iv treatment Procedure Performed: Single lumen Power Port placement Procedural MD: Ct Turnaround Planner: None Sedation: IV Conscious Sedation Findings: Successful Right IJ Power Port placement with ultrasound and fluroscopy guidance. Complications: None EBL: Minimal Specimen(s) Removed: None Full report to follow. documented in this encounter Plan of Treatment Upcoming Encounters Date Type Department Care Team (Late st Contact Info) Description 05/03/2025 1:00 PM EDT Office Visit [facility] Neurology - [place] [address] [place] [address] Ban De La Garza MD [address] [place] [address] [place] [address] Aida Rueda MD [address] [place] [address] 08/17/2025 2:15 PM EST Office Visit [facility] - [place] [address] [place] [address] Ban De La Garza MD [address] [place] [address] [place] [address] documented as of this encounter Visit Diagnoses Not on filedocumented in this encounter Care Teams Dust Collector Attendant Relationship Specialty Start Date End Date Case, Pat Saravia, RN Nurse Navigator 01/07/23 01/27/24 Ban De La Garza MD [address] [place] [address] [place] [address] Hematology and Oncology 01/13/24 documented as of this encounter
--- OUTSIDE RECORDS SUMMARY | 2025-03-02 13:33 | XMS_ITS | Encounter Summary ---
Author Organization [employer] Address [address] [place] [address] Care Team Providers Care Microwave Technician Name Role Phone CasePat RN Unavailable Unavailable Ban De La Garza MD Unavailable [phone] Encounter Details Date Type Department Care Team (Late st Contact Info) Description 10/30/2021 Transcribed Document [facility] Family Medicine [address] [place] [address] ProviderCollins MD [address] [place] [address] Social History Tobacco Use Types Packs/Day Years Used Date Smoking Tobacco: Never Assessed Sex and Gender Information Value Date Recorded Sex Assigned at Male 03/12/2022 9:01 PM CDT Legal Sex Male 9:01 PM CDT Gender Identity Male 03/12/2022 9:01 PM CDT Sexual Orientation Not on file documented as of this encounter Miscellaneous Notes * Cerner Conversion Note - Collins Montano MD - 10/30/2021 10:09 AM UNDERWATER PHOTOGRAPHER Nursing Discharge Summary Entered On: 10/30/2021 10:10 EST Performed On: 10/30/2021 10:09 EST by NNEKA ZHANG RN Discharge Documentation Discharge Date/Time : 10/30/2021 12:00 EST NNEKA ZHANG RN - 10/30/2021 12:00 EST Patient Disposition, General : Discharge Discharge To : Home with ambulatory/outpatient follow-up Mode Of Departure, General Discharge : Private vehicle, Wheelchair Accompanied By, Discharge : Spouse IV Discontinued : Yes Personal Belongings With Patient : No personal belongings to return Pt's Own Supply of Medications Returned : No patient supply of medications to return Prescriptions Given to Patient : No Discharge Instructions Reviewed With, Opportunity For Questions Given : Patient, Spouse Patient Education Completed : Yes Teaching Method : Explanation, Printed materials Teaching Evaluation : Returns demonstration, Verbalizes understanding NNEKA ZHANG RN - 10/30/2021 10:09 EST Electronically signed by [facility], [facility] Conversion Gas Plant Dispatcher Cerner at 12/31/2022 1:34 PM CDT documented in this encounter Plan of Treatment Upcoming Encounters Date Type Department Care Team (Late st Contact Info) Description 05/03/2025 1:00 PM EDT Office Visit [facility] - [place] [address] [place] [address] Ban De La Garza MD [facility] [address] [place], [place] [id number] Aida Rueda MD [address] [place] [address] 08/17/2025 2:15 PM EST Office Visit [facility] [place] [address] [place] [address] Ban De La Garza MD [facility] [address] [place], [place] [id number] documented as of this encounter Visit Diagnoses Not on filedocumented in this encounter Care Teams Microwave Technician Relationship Specialty Start Date End Date Case, Pat Saravia RN Nurse Navigator 01/07/23 01/27/24 Ban De La Garza MD [address] [place], [place] [id number] Hematology and Oncology 01/13/24 documented as of this encounter
--- OUTSIDE RECORDS SUMMARY | 2025-03-02 13:33 | XMS_ITS | Encounter Summary ---
Author Organization [employer] Address [address] [place] [address] Care Team Providers Care Oracle Engineer Name Role Phone Case, Pat Saravia RN Unavailable Unavailable Ban De La Garza MD Unavailable [phone] Encounter Details Date Type Department Care Team (Late st Contact Info) Description 10/30/2021 Transcribed Document [facility] Family Medicine [address] [place] [address] ProviderCollins MD [address] [place] [address] Social History Tobacco Use Types Packs/Day Years Used Date Smoking Tobacco: Never Assessed Sex and Gender Information Value Date Recorded Sex Assigned at Male 03/12/2022 9:01 PM CDT Legal Sex Male 9:01 PM CDT Gender Identity Male 03/12/2022 9:01 PM CDT Sexual Orientation Not on file documented as of this encounter Miscellaneous Notes * Cerner Conversion Note - Collins Montano MD - 10/30/2021 10:06 AM ACCOUNTING REPRESENTATIVE Patient Education Materials Follows: Moderate Conscious Sedation, Adult, Care After This [...] eating solid foods. General instructions ??? Take oagz-bfa-tmuvabp and prescription medicines only as told by [...] provider. Document Revised: 12/29/2020 Document Reviewed: 07/27/2020 ElseEnlighted Patient Education ? 2020 [employer] Procedures Implanted Port Insertion, Care After This sheet [...] over the port. This should improve over 3?4 days. Follow these instructions at home: Port care ??? After your port is placed, you will get a leather case finisher's information card. The card has information about [...] and water are not available, use hand music assistant. ? Change your dressing as told by [...] it is safe. General instructions ??? Take zomb-iur-gpldctp and prescription medicines only as told by [...] by your health care provider. Keep the leather case finisher's information card with you at all times. [...] provider. Document Revised: 03/30/2019 Document Reviewed: 03/30/2019 Elsevier Patient Education ? 2020 [employer] documented in this encounter Plan of Treatment Upcoming Encounters Date Type Department Care Team (Late st Contact Info) Description 05/03/2025 1:00 PM EDT Office Visit [facility] - [place] [address] [place] [address] Ban De La Garza MD [address] [place] [address] Aida Rueda MD [address] [place] [address] 08/17/2025 2:15 PM EST Office Visit [facility] [place] [address] [place] [address] Ban De La Garza MD [facility] [address] [place] [address] documented as of this encounter Visit Diagnoses Not on filedocumented in this encounter Care Teams Oracle Engineer Relationship Specialty Start Date End Date Case, Pat Saravia, RN Nurse Navigator 01/07/23 01/27/24 Ban De La Garza MD [facility] [address] [place], [place] [id number] Hematology and Oncology 01/13/24 documented as of this encounter
--- OUTSIDE RECORDS SUMMARY | 2025-03-02 13:33 | XMS_ITS | Encounter Summary ---
Author Organization [employer] Address [address] [place] [address] Care Team Providers Care Information And Referral Director Name Role Phone Case, Pat Saravia RN Unavailable Unavailable Ban De La Garza MD Unavailable [phone] Encounter Details Date Type Department Care Team (Late st Contact Info) Description 10/30/2021 Transcribed Document [facility] Family Medicine [address] [place] [address] ProviderCollins MD [address] [place] [address] Social History Tobacco Use Types Packs/Day Years Used Date Smoking Tobacco: Never Assessed Sex and Gender Information Value Date Recorded Sex Assigned at Male 03/12/2022 9:01 PM CDT Legal Sex Male 9:01 PM CDT Gender Identity Male 03/12/2022 9:01 PM CDT Sexual Orientation Not on file documented as of this encounter Miscellaneous Notes * Cerner Conversion Note - Historical ProviderMD - 10/30/2021 8:28 AM EMR ANALYST Pre Procedure Adult Entered On: 10/30/2021 8:42 EST Performed On: 10/30/2021 8:28 EST by NNEKA ZHANG RN Height and Weight, Clinical Dosing Height Source : Stated Height Entry Format : [place] Height, Feet : 5 ft(Converted to: 152 cm, 60 Inch) Height, Inches : 7 Inch(Converted to: 0 ft 7 Inch, 17.78 cm) Clinical Height : 170.18 cm Weight Source : Standing scale Weight Entry Format : [place] Clinical Dosing Weight : 94.09 kg Weight, Pounds : 207 lb Body Surface Area (BSA) : 2.05 m2 Body Mass Index : 32.5 kg/m2 (HI) [place] Body Weight : 65 kg NNEKA ZHANG RN - 10/30/2021 8:28 EST Health Histories Smoking Status : Former smoker, quit more than 30 days ago Smokeless Tobacco Status : Never NNEKA ZHANG RN - 10/30/2021 8:28 EST Social History (As Of: 10/30/2021 08:42:03 EST) Tobacco: Former smoker, quit more than 30 [...] patient have symptoms of COVID-19? : No Has the Patient Been Tested for COVID-19 in the last 14 days? : Yes, Patient stated results Negative Does the Patient state known exposure to a COVID-19 positive case in the last 14 days? : No Patient Vaccinated for COVID-19 : Fully vaccinated NNEKA ZHANG RN - 10/30/2021 8:28 EST Infectious Disease Risk Screening Grid Cough < 2 wks of unknown origin : NO Cough > 2 weeks : NO Blood in Sputum : NO Fever or self-reported Fever : NO Rash of unknown origin : NO Headache : NO Stiff neck : NO Night Sweats : NO Unexplained Weight Loss : NO Diarrhea (3 episode per day) : NO NNEKA ZHANG RN - 10/30/2021 8:28 EST Patient Masked? : Yes Physical contact outside [place] in the last 30 days : No Hospitalized in Foreign Country : No Infectious Disease History : Chicken pox/Shingles, Hepatitis A INF Disease TB Screening Calc : 0 INF Disease Recent Travel Calc : 0 NNEKA ZHANG RN - 10/30/2021 8:28 EST COVID19 PreProcedure Screening Is this an Emergent or Add on Procedure? : No Date PreProcedure COVID-19 test known? : Yes Date of PreProcedure COVID-19 : 10/30/2021 EST Has patient been isolated since the test : No Exposed to COVID19 symptoms since test? : No NNEKA ZHANG RN - 10/30/2021 8:28 EST Anesthesia/Transfusion History Family History of Anesthesia Reaction : No prior transfusion(s) Transfusion History : Prior anesthesia without reaction Family History of Anesthesia Reaction : None NNEKA ZHANG RN - 10/30/2021 8:28 EST Functional Assessment Living Situation : Home Patient Lives With : Spouse Current Home Treatments : None NNEKA ZHANG RN - 10/30/2021 8:28 EST [place] Suicide Severity Rating Scale (C-SSRS) CSSRS Past Month Wish to be : No CSSRS Past Month Suicidal Thoughts : No CSSRS Lifetime Suicide Behavior : No Suicide Severity Rating Score : 0 Suicide Severity Rating : No Additional Care Required at this time NNEKA ZHANG RN - 10/30/2021 8:28 EST Psychosocial History Currently in Unsafe Situation : No NNEKA ZHANG RN - 10/30/2021 8:28 EST Advance Directive Patient has Advance Directive *Q : No, patient refuses Advance Directive information NNEKA ZHANG RN - 10/30/2021 8:28 EST Teaching/Learning Assessment Barriers To Learning : None evident Individuals Taught : Patient, Spouse Readiness to Learn : Cooperative Baseline Knowledge of Topic : Limited Readiness to Learn : Explanation Learning Style Preferences Patient : Verbal explanation Learning Style Preferences Family : Verbal explanation NNEKA ZHANG RN - 10/30/2021 8:28 EST Education Topics, Periop Preadmission Perioperative Education Grid Arrival Time/Place : Verbalizes understanding CAUTI : Verbalizes understanding Central Lines : Verbalizes understanding CHG Preoperative Bathing/Cloths : Verbalizes understanding Falls : Verbalizes understanding Incentive Spirometry : Verbalizes understanding Infection Control : Verbalizes understanding IV's : Verbalizes understanding NPO Status/Directions : Verbalizes understanding Pain Management : Verbalizes understanding Postoperative Care Preparations : Verbalizes understanding Preprocedure Preparations : Verbalizes understanding Preprocedure Tests/Labs : Verbalizes understanding Remove Body Piercings : Verbalizes understanding Responsible Adult : Verbalizes understanding SNE's : Verbalizes understanding Take/Hold Medications Pre-Procedure : Verbalizes understanding Other : Verbalizes understanding NNEKA ZHANG RN - 10/30/2021 8:28 EST General Info Arrived From : Home Mode of Arrival on Unit : Ambulatory Patient Arrival Date/Time : 10/30/2021 7:30 EST Legal Guardian : Spouse Want Family/Rep/Phys Notified of Admit : No Emergency Contact #1 : Shayla Shah Emergency Contact #1 Emergency Contact #1 Relationship : Emergency Contact #2 : na Emergency Contact #2 Phone Number : na Emergency Contact #2 Relationship : na Information Obtained From : Patient Primary Language : Cambodian Preferred Communication Mode : Verbal Communication Barrier : None Crystal Inspector Needed : No NNEKA ZHANG RN - 10/30/2021 8:28 EST Vital Measurements Temperature Source : Temporal artery scanning Temperature Mode : Fahrenheit Temperature, Fahrenheit : 97.6 Deg F Clinical Temperature, C : 36.4 Deg C Peripheral Pulse Rate : 60 bpm Systolic Blood Pressure : 128 mmHg Diastolic Blood Pressure : 74 mmHg Oxygen Saturation : 97 % Oxygen Therapy Mode : Room air NNEKA ZHANG RN - 10/30/2021 8:28 EST Sleep Apnea Risk Assmt Hx of Obstructive Sleep Apnea Diagnosis : No Snore Loudly : No Tired, Fatigued, or Sleepy During Day : No Observed Stopping Breathing During Sleep : No Have/Are Being Treated for Hypertension : No BMI Greater Than 35 kg/m2 : No Age over 50 Years Old : Yes Neck Circumference Greater Than 40 cm : No Gender Male : Yes STOP-BANG Sleep Apnea Risk Level Score : 2 NNEKA ZHANG RN - 10/30/2021 8:28 EST Elroy Scale Elroy Sensory Perception : No impairment Leroy Moisture : Rarely moist Leroy Activity : Walks frequently Elroy Mobility : No limitation Elroy Nutrition : Excellent Elroy Friction and Shear : No apparent problem [place]roy Score : 23 NNEKA ZHANG RN - 10/30/2021 8:28 EST Oxygen Therapy Oxygen Therapy Mode : Room air NNEKA ZHANG RN - 10/30/2021 8:28 EST Pain Assessment Pain Assessment : Initial assessment Pain Scale Used : 0-10 Scale NNEKA ZHANG RN - 10/30/2021 8:28 EST Fall Risk Scales ABCs Fall Injury Risk Identification : Surgery ABC Fall Injury Risk : Moderate to high injury risk SANCHEZ Hx Falls Immediate/Within 3 Months : No Sanchez Secondary Diagnosis : Yes SANCHEZ Use of Ambulatory Aid : None SANCHEZ IV Therapy or IV Access : Yes Sanchez Gait/Transferring : Normal, bedrest, immobile Sanchez Mental Status : Oriented to own ability Sanchez Fall Risk Score : 35 SANCHEZ Fall Scale Risk Level : 25-45 Medium Risk [place] Fall Interventions : Adequate lighting, Bed in low position, Call device within reach, Frequent orientation to call device, Frequent orientation to surroundings, Non-slip footwear, Personal items within reach, Room free of clutter/spills, Wheels locked, Wires/Cords secured NNEKA ZHANG RN - 10/30/2021 8:28 EST Valuables and Belongings Valuables and Belongings : Clothing, Jewelry, Personal items Clothing : Common streetwear Clothing Disposition : Bedside Jewelry : Ring-plain band Jewelry Disposition : With patient Personal Items : Cell phone, Wallet Personal Items Disposition : With family NNEKA ZHANG RN - 10/30/2021 8:28 EST Pain Scale Intensity : 0 NNEKA ZHANG RN - 10/30/2021 8:28 EST Image 4 - Images currently included in the form version of this document have not been included in the text rendition version of the form. documented in this encounter Plan of Treatment Upcoming Encounters Date Type Department Care Team (Late st Contact Info) Description 05/03/2025 1:00 PM EDT Office Visit [facility] Neurology - [place] [address] [facility] [address] [place] [address] Ban De La Garza MD [address] [place] [address] [address] [place] [address] Aida Rueda MD [facility] [address] [place] [address] 08/17/2025 2:15 PM EST Office Visit [facility] - [place] [address] [facility] [address] [place] [address] Ban De La Garza MD [address] [facility] [address] [place] [address] documented as of this encounter Visit Diagnoses Not on filedocumented in this encounter Care Teams Information And Referral Director Relationship Specialty Start Date End Date Case, Pat Saravia, RN Nurse Navigator 01/07/23 01/27/24 Ban De La Garza MD [address] [address] Hematology and Oncology 01/13/24 documented as of this encounter
--- OUTSIDE RECORDS SUMMARY | 2025-03-02 13:33 | XMS_ITS | Encounter Summary ---
Author Organization [employer] Address [address] [place] [address] Care Team Providers Care Acid Bath Mixer Name Role Phone Case, Pat Saravia RN Unavailable Unavailable Ban De La Garza MD Unavailable [phone] Encounter Details Date Type Department Care Team (Late st Contact Info) Description 10/30/2021 Transcribed Document [facility] [place] [address] [place] [address] ProviderCollins MD [address] [place] [address] Social History Tobacco Use Types Packs/Day Years Used Date Smoking Tobacco: Never Assessed Sex and Gender Information Value Date Recorded Sex Assigned at Male 03/12/2022 9:01 PM CDT Legal Sex Male 9:01 PM CDT Gender Identity Male 03/12/2022 9:01 PM CDT Sexual Orientation Not on file documented as of this encounter Miscellaneous Notes * Cerner Conversion Note - Collins Montano MD - 10/30/2021 10:07 AM BULLET SWAGING MACHINE OPERATOR Patient: HEYDI SIMS Age: 61 years Sex: Male : 1960 Associated Diagnoses: None Author: KAMINI ZHOU PA-C Postoperative Information The patient presents for a fluoroscopically guided procedure requiring sedation. The patient is requiring usp IV access. Review of Systems Constitutional: Negative. Eye: Negative. Ear/Nose/Mouth/Throat: Negative. Respiratory: Negative. Cardiovascular: Negative. Gastrointestinal: Negative. Genitourinary: Negative. Hematology/Lymphatics: Negative. Endocrine: Negative. Immunologic: Negative. Musculoskeletal: Negative. Integumentary: Negative. Neurologic: Negative. Psychiatric: Negative. All other systems are negative Health Status Allergies: Allergic Reactions (Selected) No Known Allergies, Allergies (1) Active Reaction No Known Allergies None Documented Current medications: (Selected) Inpatient Medications Ordered Sodium Chloride 0.9% intravenous solution 1,000 mL: 70 mL/Hr, IntraVENous Zofran: 4 mg, IV Push, 1-Time, PRN: Nausea/Vomiting ceFAZolin: 2 Gram, 50 mL, 100 mL/Hr, IV Piggyback, PREOP Documented Medications Documented LORazepam 0.5 mg oral tablet: 1 Tab, Oral, BID, PRN: as needed for anxiety, 0 Refill(s) bisoprolol 5 mg oral tablet: 1 Tab, Oral, Daily, 15 Tab, 0 Refill(s) metoclopramide 10 mg oral tablet: 1 Tab, Oral, QID, 120 Tab, 0 Refill(s) ondansetron 4 mg oral tablet, disintegratin Tab, Oral, Q8H, PRN: Nausea, 0 Refill(s) oxyCODONE 5 mg oral tablet: 1 Tab, Oral, Q6H, PRN: as needed for pain, 0 Refill(s) pantoprazole 40 mg oral delayed release tablet: 1 Tab, Oral, Daily, 30 Tab, 0 Refill(s) tamsulosin 0.4 mg oral capsule: 1 Cap, Oral, Daily, TAKE ONE CAPSULE BY MOUTH EVERY DAY AT BEDTIME, Home Medications (7) Active bisoprolol 5 mg oral tablet 5 mg = 1 Tab, Oral, Daily LORazepam 0.5 mg oral tablet 0.5 mg = 1 Tab, PRN, Oral, BID metoclopramide 10 mg oral tablet 10 mg = 1 Tab, Oral, QID ondansetron 4 mg oral tablet, disintegrating 4 mg = 1 Tab, PRN, Oral, Q8H oxyCODONE 5 mg oral tablet 5 mg = 1 Tab, PRN, Oral, Q6H pantoprazole 40 mg oral delayed release tablet 40 mg = 1 Tab, Oral, Daily tamsulosin 0.4 mg oral capsule 0.4 mg = 1 Cap, Oral, Daily , Medications (3) Active Scheduled: (1) ceFAZolin/D5w 2 Gram 50 mL, IV Piggyback, PREOP Continuous: (1) NaCl 0.9% 1,000 mL 1,000 mL, IntraVENous, 70 mL/Hr PRN: (1) ondansetron 4 mg/2 mL inj 4 mg 2 mL, IV Push, 1-Time Problem list: All Problems At risk for sleep apnea / IMO 56853888 / Confirmed Diffuse large B-cell lymphoma of spleen / SNOMED CT 126795350 / Confirmed BPH (benign prostatic hyperplasia) / SNOMED CT 669360546 / Confirmed GERD - Gastro-esophageal reflux disease / SNOMED CT 9748295092 / Confirmed Hypertension / SNOMED CT 88820732 / Confirmed, Active Problems (5) At risk [...] . Physical Examination VS/Measurements Vital Signs/Vital Measures 10/30/2021 8:28 EST Systolic Blood Pressure 128 mmHg Diastolic Blood Pressure 74 mmHg Temperature Source Temporal artery scanning Temperature Mode Fahrenheit Temperature, Fahrenheit 97.6 Deg F Clinical Temperature, C 36.4 Deg C Peripheral Pulse Rate 60 bpm Oxygen Saturation 97 % Oxygen Therapy Mode Room air Oxygen Therapy Mode Room air , Measurements from flowsheet : Measurements 10/30/2021 8:28 EST Height Source Stated Height Entry Format [place] Height/Length, TONGAN (ft) 5 ft Height/Length TONGAN 7 Inch CLINICALHEIGHT 170.18 cm [place] Body Weight 65 kg Weight Source Standing scale Weight Entry Format Tama Weight Tristanian lb 207 lb CLINICALWEIGHT 94.09 kg Body Surface Area (BSA) 2.05 m2 Body Mass Index 32.5 kg/m2 HI General: No acute distress. Respiratory: Lungs are clear to auscultation. Cardiovascular: Normal rate, No murmur. Gastrointestinal: Non-distended. Neurologic: Alert. Review / Management Results review: Labs (Last four charted values) PT 11.2 (OCT 30) INR 1.0 (OCT 30) , Lab results 10/30/2021 8:06 EST PT 11.2 Second(s) INR 1.0 10/30/2021 7:33 EST SARS-CoV-2 (COVID19 PCR) Negative . Impression and Plan Proceed with ordered procedure/exam . Electronically signed by Yovanny, [facility] Conversion Kiln Burner Helper Cerner at 12/31/2022 1:15 PM CDT documented in this encounter Plan of Treatment Upcoming Encounters Date Type Department Care Team (Late st Contact Info) Description 05/03/2025 1:00 PM EDT Office Visit [facility] Neurology - [address] [place] [address] [place] [address] Ban De La Garza MD [facility] [address] [place] [address] Aida Rueda MD [address] [place] [address] 08/17/2025 2:15 PM EST Office Visit [facility] - [place] [address] [place] [address] Ban De La Garza MD [address] [place] [address] documented as of this encounter Visit Diagnoses Not on filedocumented in this encounter Care Teams Acid Bath Mixer Relationship Specialty Start Date End Date Case, Pat Saravia, RN Nurse Navigator 01/07/23 01/27/24 Ban De La Garza MD [address] [place], [place] [id number] Hematology and Oncology 01/13/24 documented as of this encounter
[2025-03-02 14:07] LABS: Blood Urea Nitrogen 13 mg/dl (9-20); Estimated Glomerular Filt Rate 97 ml/min (>60); GFR (African American) 118 ML/MIN (>60)
[2025-03-02] MEDS: GADOTERIDOL INJ 10ML SYRINGE 3 ML IV (14:33)
[2025-03-02] MEDS: GADOTERIDOL INJ 20ML SYRINGE 20 ML IV (14:33)
[2025-03-02] MEDS: SODIUM CHLORIDE 0.9% 10ML SYR (RAD ONLY) 10 ML IV (14:33)
== END 2025-03-02 23:59 | disposition home or self-care (01) ==
LOC: RAD 13:28
PROVIDERS: PCP Internal Medicine; Visit Provider Physician Assistant
DX: G31.9 Degenerative disease of nervous system, unspecified (principal); J01.00 Acute maxillary sinusitis, unspecified; J32.0 Chronic maxillary sinusitis; R25.1 Tremor, unspecified
CPT/HCPCS: 36415; 70553; 82565; 84520; A9576

== ENCOUNTER 2025-03-02 14:53 | Emergency (ER) | payer OTHER, SELFPAY ==
--- OUTSIDE RECORDS SUMMARY | 2025-01-31 14:30 | XMS_ITS | Encounter Summary ---
Author Organization [employer] Address [address] [place] [address] Care Team Providers Care New Home Sales Consultant Name Role Phone Ban De La Garza MD Unavailable [phone] Reason for Referral * Consultation (Routine) - Authorized Specialty Diagnoses / Procedures Referred By Mitesh toth Referred To Contact Neurology Diagnoses History of non-Hodgkin lymphoma Tremor New PT - Right Side Tremors, Hx Lymphoma Procedures Scheduled Ban De La Garza MD [address] [place] [address] [address] [place] [address] Phone: tel: fax:[phone] Aida Rueda MD [address] [place] [address] [address] [place] [address] Phone: tel: fax: Referral ID Status Reason Start Date Expiration Date Visits Requested Visits Authorized [id number] Authorized Specialty Services Required 01/31/2025 07/14/2025 1 1 * MRI (Emergency) - Pending Review Specialty Diagnoses / Procedures Referred By Mitesh toth Referred To Contact Radiology Diagnoses History of non-Hodgkin lymphoma Pulmonary edema GERD (gastroesophageal reflux disease) Procedures MRI BRAIN STEALTH W WO CONTRAST Ban De La Garza MD [address] [place] [address] [address] [place] [address] Phone: tel: fax:[phone] [facility]31 Phone: tel: Referral ID Status Reason Start Date Expiration Date V isits Requested Visits Authorized [id number] Pending Review 01/31/2025 07/14/2025 1 1 * Consultation (Routine) - Pending Review Specialty Diagnoses / Procedures Referred By Mitesh toth Referred To Contact Cardiology Diagnoses History of non-Hodgkin lymphoma Pulmonary edema GERD (gastroesophageal reflux disease) Ban De La Garza MD [facility] [address] [place] [address] Phone: tel: fax:[phone] [place] [address] [address] [facility] [place] [address] Phone: tel: Referral ID Status Reason Start Date Expiration Date Visits Requested Visits Authorized [id number] Pending Review Specialty Services Required 01/31/2025 07/14/2025 1 1 * Echocardiography (Routine) - Pending Review Specialty Diagnoses / Procedures Referred By Mitesh toth Referred To Contact Cardiology Diagnoses History of non-Hodgkin lymphoma Pulmonary edema GERD (gastroesophageal reflux disease) Procedures ECHO COMPLETE (DOPPLER / COLOR) W OR WO CONTRAST Ban De La Garza MD [address] [place] [address] [address] [place] [address] Phone: tel: fax:[phone] [facility] [place] [address] Phone: tel: Referral ID Status Reason Start Date Expiration Date V isits Requested Visits Authorized [id number] Pending Review 02/01/2025 07/14/2025 1 1 Reason for Visit * Reason Comments Follow-up History of non-Hodgk in's lymphoma Encounter Details Date Type Department Care Team (Late st Contact Info) Description 01/31/2025 2:30 PM EDT Office Visit [facility] - [address] [place] [address] Ban De La Garza MD [address] [place] [address] History of non-Hodgkin lymphoma (Primary Dx); Pulmonary edema; GERD (gastroesophageal reflux disease); Tremor Social History Tobacco Use Types Packs/Day Years Used Date Smoking Tobacco: Former Cigarettes Smokeless Tobacco: Never Comments:1 cigar per day, qu it 10 yrs ago. Alcohol Use Standard Drinks/Week Comments Yes 1 (1 standard drink = 0.6 oz pur e alcohol) Interpersonal Safety Answer Date Record ed Family or friends hurt you Not on file 10/03 Family or friends insult you Not on file Family or friends threaten you Not on file 0 10/03/2023 Family or friends scream or curse at you Not on file 10/03/2023 Housing Stability Answer Date Recorded Living situation today Not on file Living situation problems Not on file 2023 Family and Community Support Answer Jeffry e Recorded Help with Day to Day Activities Not on file 10/03/2023 Feeling Lonely or Isolated Not on file 10/03 Educational Attainment Answer Date Nik rded Speak language other than Congolese at home Not on file 10/03/2023 Want help with school or training Not on file 10/03/2023 Depression Answer Date Recorded PHQ-2 Risk Not on file 10/03/2023 Disabilities Answer Date Recorded Difficulty concentrating Not on file 024 Difficulty doing errands alone Not on file 0 10/03/2023 Substance Use Answer Date Recorded Used [...] from the original note were not included. [facility] Oncology Clinic Note Cancer History: [...] an MRI of the brain to exclude CLOTH DESIGNER metastasis or structural lesion as cause while [...] PM EDT Email sent to pt via Intense, informed of recent tests results. Heart enzyme was slightly elevated. Other labs normal. Follow up with ECHO and cardiology. documented in this encounter Plan of Treatment Upcoming Encounters Date Type Department Care Team (Christianne Contact Info) Description 05/03/2025 1:00 PM EDT Office Visit [facility] Neurology - [facility] [address] [place] [address] Ban De La Garza MD [address] [place] [address] Aida Rueda MD [address] [place] [address] 08/17/2025 2:15 PM EST [facility] [address] [place] [address] Ban De La Garza MD [address] [place], [place] [id number] Scheduled Orders Name Type Priority Associated Diagnoses [...] - 125 pg/mL 01/31/2025 3:05 PM EDT [facility] Blood Venipuncture / Unknown 01/31/2025 1:56 PM EDT 01/31/2025 1:59 PM EDT us Ban De La Garza MD LAB BLOOD ORDERABLES Final Res ult Performing Organization Address [facility]/ZIP Co de Phone Number [facility] [address] [place] [address] * Lactate dehydrogenase (LDH) (01/31/2025 1:56 PM EDT) LDH 212 87 - 241 U/L 01/31/2025 3:05 PM EDT [facility] Blood Venipuncture / Unknown 01/31/2025 1:56 PM EDT 01/31/2025 1:59 PM EDT us Ban De La Garza MD LAB BLOOD ORDERABLES Final Res ult [facility] [address] [place] [address], [facility] [phone] * (ABNORMAL) Comprehensive metabolic panel (01/31/2025 1:56 PM EDT) Sodium 137 136 - 146 meq/L 01/31/2025 3:05 PM EDT [facility] Potassium 4.3 3.5 - 5.1 meq/L 01/31/2025 3:05 PM EDT [facility] Chloride 106 102 - 112 meq/L 01/31/2025 3:05 PM EDT [facility] CO2 24 21 - 32 meq/L 01/31/2025 3:05 PM EDT [facility] Calcium 9.2 8.5 - 10.1 mg/dL 01/31/2025 3:05 PM EDT [facility] Glucose 110(H) 74 - 106 mg/dL 01/31/2025 3:05 PM EDT [facility] BUN 12 7 - 22 mg/dL 01/31/2025 3:05 PM EDT [facility] Creatinine 0.95 0.70 - 1.30 mg/dL 01/31/2025 3:05 PM EDT [facility] BUN/Creatinine 13 8 - 20 01/31/2025 3:05 PM EDT [facility] Albumin 3.9 3.4 - 5.0 g/dL 01/31/2025 3:05 PM EDT [facility] Alkaline Phosphatase 86 27 - 136 U/L 01/31/2025 3:05 PM EDT [facility] ALT 26 12 - 78 U/L 01/31/2025 3:05 PM EDT [facility] AST 19 5 - 37 U/L 01/31/2025 3:05 PM EDT [facility] Total Bilirubin 0.9 0.2 - 1.3 mg/dL 01/31/2025 3:05 PM EDT [facility] Protein, Total 7.8 6.4 - 8.2 gm/dL 01/31/2025 3:05 PM EDT [facility] Anion Gap 11 9 - 20 01/31/2025 3:05 PM EDT [facility] A/G Ratio 1.0(L) 1.1 - 2.5 01/31/2025 3:05 PM EDT [facility] Globulin 3.9 1.5 - 4.5 g/dL 01/31/2025 3:05 PM EDT [facility] Osmolality Calc 274.2 mOsm/kg 3:05 PM EDT [facility] eGFR (mL/min/1.73m2) >60 >=60 mL/min/1.7 3m2 01/31/2025 3:05 PM EDT [facility] Comment:ESTIMATED GFR IS NOT ACCURATE CREATININE CLEARANCE IN PREDICTING GLOMERULAR FILTRATION RATE. ESTIMATED GFR IS NOT APPLICABLE FOR DIALYSIS PATIENTS. Blood Venipuncture / Unknown 01/31/2025 1:56 PM EDT 01/31/2025 1:59 PM EDT us Ban De La Garza MD LAB BLOOD ORDERABLES Final Res ult Performing Organization Address City/State/[facility] Co de Phone Number [facility] [address] [place] [address] * (ABNORMAL) CBC with automated diff (01/31/2025 [...] 1:56 PM EDT 01/31/2025 1:59 PM EDT [facility] ONCOLOGY LABORATORY - [place] - 01/31/2025 2:04 [...] ORDERABLES Final Res ult ONCOLOGY LABORATORY - [facility] [address] [place] [address], [facility] [phone] documented in this encounter Visit Diagnoses Diagnosis History of non-Hodgkin lymphoma- Primary Pulmonary edema Pulmonary congestion and hypostasis GERD (gastroesophageal reflux disease) Esophageal reflux Tremor Abnormal involuntary movements documented in this encounter Care Teams New Home Sales Consultant Relationship Specialty Start Date End Date Ban De La Garza MD [address] [facility] [address] [place] [address] Hematology and Oncology 01/13/24 documented as of this encounter
[2025-03-02] VITALS (11 sets, daily range): BP systolic 108–122; BP diastolic 52–69; PULSE 58–79; RESP 14–23; TEMP 36.8; O2SAT 95–99; BMI 38.0
--- NOTE | 2025-03-02 14:59 | ECG_ITS ---
APPROVED REPORT Exam: Resting ECG HR:60 bpm ECG Measurements Heart Rate 60 AXES ME 189 P 26 QRSd 101 QRS 12 QT 403 T 30 QTc 404 Conclusion Sinus rhythm Physiologic versus hyperacute T waves No obvious other acute ischemic change Electronically signed by : DAVID MELCHOR, 03/08/2025 07:44:07
--- OUTSIDE RECORDS SUMMARY | 2025-03-02 15:12 | XMS_ITS | Encounter Summary ---
Author Organization [employer] Address [address] [place] [address] Care Team Providers Care Telephone Operator Name Role Phone Ban De La Garza MD Unavailable [phone] Encounter Details Date Type Department Care Team (Late st Contact Info) Description 02/22/2025 Orders Only [facility] - [place] [address] [facility] [address] [place] [address] Ban De La Garza MD [address] [place], [place] [id number] Social History Tobacco Use Types Packs/Day Years [...] Date Nik rded Speak language other than Nauruan at home Not on file 10/03/2023 Want [...] Description 05/03/2025 1:00 PM EDT Office Visit [facility] Neurology - [address] [place] [address] [place] [address] Ban De La Garza MD [address] [place] [address] Aida Rueda MD [address] [place] [address] 08/17/2025 2:15 PM EST Office Visit [facility] - [place] [address] [place] [address] Ban De La Garza MD [address] [place] [address] documented as of this encounter Visit Diagnoses Not on filedocumented in this encounter Care Teams Telephone Operator Relationship Specialty Start Date End Date Ban De La Garza MD [address] [place] [address] Hematology and Oncology 01/13/24 documented as of this encounter
--- OUTSIDE RECORDS SUMMARY | 2025-03-02 15:12 | XMS_ITS | Encounter Summary ---
Author Organization [employer] Address [address] [place] [address] Care Team Providers Care Bed Laborer Name Role Phone Ban De La Garza MD Unavailable [phone] Encounter Details Date Type Department Care Team (Late st Contact Info) Description 01/31/2025 Orders Only [facility] - [place] [address] [facility] [address] [place] [address] Ban De La Garza MD [address] [place], [place] [phone] Social History Tobacco Use Types Packs/Day Years [...] Date Nik rded Speak language other than Faroese at home Not on file 10/03/2023 Want [...] Description 05/03/2025 1:00 PM EDT Office Visit [facility] Neurology - [place] [address] [place] [address] Ban De La Garza MD [address] [place] [address] Aida Rueda MD [address] [place] [address] 08/17/2025 2:15 PM EST Office Visit [facility] - [place] [address] [place] [address] Ban De La Garza MD [address] [place] [address] documented as of this encounter Visit Diagnoses Not on filedocumented in this encounter Care Teams Bed Laborer Relationship Specialty Start Date End Date Ban De La Garza MD [address] [place] [address] Hematology and Oncology 01/13/24 documented as of this encounter
--- OUTSIDE RECORDS SUMMARY | 2025-03-02 15:12 | XMS_ITS | Encounter Summary ---
Author Organization [employer] Address [address] [place] [address] Care Team Providers Care Wagon Washer Name Role Phone Case, Pat Saravia RN Unavailable Unavailable Ban De La Garza MD Unavailable [phone] Encounter Details Date Type Department Care Team (Late st Contact Info) Description 02/21/2022 Transcribed Document [facility] [address] [place] [address] ProviderCollins MD [address] [place] [address] Social History Tobacco Use Types Packs/Day Years [...] 02/21/2022 12:07 EDT Electronically signed by Yovanny, [facility] Conversion Lithographic Stripper Cerner at 12/31/2022 1:31 PM CDT documented in this encounter Plan of Treatment Upcoming Encounters Date Type Department Care Team (Late st Contact Info) Description 05/03/2025 1:00 PM EDT Office Visit [facility] Neurology - [address] [place] [address] [place] [address] Ban De La Garza MD [address] [place] [address] Aida Rueda MD [address] [place] [address] 08/17/2025 2:15 PM EST Office Visit [facility] - [place] [address] [place] [address] Ban De La Garza MD [address] [place] [address] documented as of this encounter Visit Diagnoses Not on filedocumented in this encounter Care Teams Wagon Washer Relationship Specialty Start Date End Date Case, Pat Saravia RN Nurse Navigator 01/07/23 01/27/24 Ban De La Garza MD [address] [place] [address] Hematology and Oncology 01/13/24 documented as of this encounter
--- OUTSIDE RECORDS SUMMARY | 2025-03-02 15:12 | XMS_ITS | Referral Summary ---
Author Organization [employer] Address [address] [place] [address] Care Team Providers Care Farm Management Professor Name Role Phone Ban De La Garza MD Unavailable [phone] Encounters Date Type Department Care Team Description 02/22/2025 Orders Only [facility] [facility] - [place] [address] [place] [address] Ban De La Garza MD 02/02/2025 Orders Only [facility] - [place] [address] [place] [address] Reanna Thomas PA-C Tremor (Primary Dx) 02/02/2025 Telephone [facility] - [place] [address] [place] [address] Ban De La Garza MD Advice Only 01/31/2025 Orders Only [facility] - [place] [address] [place] [address] Ban De La Garza MD 01/31/2025 2:30 PM EDT Office Visit [facility] - [place] [address] [place] [address] Ban De La Garza MD History of non-Hodgkin lymphoma (Primary Dx); Pulmonary edema; GERD (gastroesophageal reflux disease); Tremor 01/20/2025 Orders Only [facility] - [place] [address] [place] [address] Provider, MD Collins from Last 3 Months [...] Date Nik rded Speak language other than Luxembourger at home Not on file 10/03/2023 Want [...] Description 05/03/2025 1:00 PM EDT Office Visit [facility] Neurology - [facility] [address] [facility] [address] [place] [address] Ban De La Garza MD [address] [place] [address] [place], [place] [phone] Aida Rueda MD [address] [facility] [facility] [address] [place] [address] 08/17/2025 2:15 PM EST Office Visit [facility] - [place] [address] [place] [address] Ban De La Garza MD [address] [place] [address] Procedures Procedure Name Priority Date/Time Associated Diagnosis [...] Final Res ult ONCOLOGY LABORATORY - [place] [place] [address], [facility] [phone] * (ABNORMAL) PROBNP (01/31/2025 1:56 PM EDT) Pathologist [facility] ProBNP (pg/mL) 219(H) 0 - 125 pg/mL 01/31/2025 3:05 PM EDT [facility] Blood Venipuncture / Unknown 01/31/2025 1:56 PM EDT 01/31/2025 1:59 PM EDT Ban De La Garza MD LAB BLOOD ORDERABLES Final Res ult Performing Organization Address [facility]/ZIP Co de Phone Number [facility] [address] [place] [address], [facility] [phone] * Lactate dehydrogenase (LDH) (01/31/2025 1:56 PM EDT) [facility] LDH 212 87 - 241 U/L 01/31/2025 3:05 PM EDT [facility] Blood Venipuncture / Unknown 01/31/2025 1:56 PM EDT 01/31/2025 1:59 PM EDT Ban De La Garza MD LAB BLOOD ORDERABLES Final Res ult Performing Organization Address [facility]/ZIP Co de Phone Number [facility] [address] [place] [address], [facility] [phone] * (ABNORMAL) Comprehensive metabolic panel (01/31/2025 1:56 PM EDT) [facility] Sodium 137 136 - 146 meq/L 01/31/2025 3:05 PM EDT [facility] Potassium 4.3 3.5 - 5.1 meq/L 01/31/2025 3:05 PM T [facility] Chloride 106 102 - 112 meq/L 01/31/2025 3:05 PM T [facility] CO2 24 21 - 32 meq/L 01/31/2025 3:05 PM [facility] Calcium 9.2 8.5 - 10.1 mg/dL 01/31/2025 3:05 PM T [facility] Glucose 110(H) 74 - 106 mg/dL 01/31/2025 3:05 PM [facility] BUN 12 7 - 22 mg/dL 01/31/2025 3:05 PM [facility] Creatinine 0.95 0.70 - 1.30 mg/dL 01/31/2025 3:05 PM [facility] BUN/Creatinine 13 8 - 20 01/31/2025 3:05 PM [facility] Albumin 3.9 3.4 - 5.0 g/dL 01/31/2025 3:05 PM [facility] Alkaline Phosphatase 86 27 - 136 U/L 01/31/2025 3:05 PM [facility] ALT 26 12 - 78 U/L 01/31/2025 3:05 PM [facility] AST 19 5 - 37 U/L 01/31/2025 3:05 PM [facility] Total Bilirubin 0.9 0.2 - 1.3 mg/dL 01/31/2025 3:05 PM [facility] Protein, Total 7.8 6.4 - 8.2 gm/dL 01/31/2025 3:05 PM [facility] Anion Gap 11 9 - 20 01/31/2025 3:05 PM [facility] A/G Ratio 1.0(L) 1.1 - 2.5 01/31/2025 3:05 PM [facility] Globulin 3.9 1.5 - 4.5 g/dL 01/31/2025 3:05 PM [facility] Osmolality Calc 274.2 mOsm/kg 3:05 PM [facility] eGFR (mL/min/1.73m2) >60 >=60 mL/min/1.7 3m2 01/31/2025 3:05 PM EDT [facility] Comment:ESTIMATED GFR IS NOT ACCURATE CREATININE CLEARANCE IN PREDICTING GLOMERULAR FILTRATION RATE. ESTIMATED GFR IS NOT APPLICABLE FOR DIALYSIS PATIENTS. Blood Venipuncture / Unknown 01/31/2025 1:56 PM EDT 01/31/2025 1:59 PM EDT Ban De La Garza MD LAB BLOOD ORDERABLES Final Res ult [facility] [address] [phone] * EXTERNAL IMAGING - CT (01/20/2025 2:20 [...] 9:58 AM EST 10/24/2021 3:36 PM EST [facility] Historical Provider LAB BLOOD ORDERABLES Fi nal Result [facility] [address] [place] [address], [facility] [phone] from Last 3 Months or Most Recently Relevant to Health Maintenance Insurance BLUE CROSS/BLUE SHIELD Care Teams Farm Management Professor Relationship Specialty Start Date End Date Ban De La Garza MD [address] [facility] [address] [place] [address] Hematology and Oncology 01/13/24
--- OUTSIDE RECORDS SUMMARY | 2025-03-02 15:12 | XMS_ITS | Clinical Summary ---
Author Organization [employer] Address [address] [place] [address] Care Team Providers Care Room Server Name Role Phone Ban De La Garza MD Unavailable [phone] Allergies Active Allergy Reactions Criticality Noted [...] Department Care Team Description 02/22/2025 Orders Only [facility] - [place] [address] [place] [address] Ban De La Garza MD 02/02/2025 Orders Only [facility] - [place] [address] [place] [address] Reanna Thomas PA-C Tremor (Primary Dx) 02/02/2025 Telephone [facility] - [place] [address] [place] [address] Ban De La Garza MD Advice Only 01/31/2025 2:30 PM EDT Office Visit [facility] - [place] [address] [place] [address] Ban De La Garza MD History of non-Hodgkin lymphoma (Primary Dx); Pulmonary edema; GERD (gastroesophageal reflux disease); Tremor 01/31/2025 Orders Only [facility] - [place] [address] [place] [address] Ban De La Garza MD 01/20/2025 Orders Only [facility] - [place] [address] [place] [address] Provider, MD Collins from Last [...] Date Nik rded Speak language other than Iraqi at home Not on file 10/03/2023 Want [...] Description 05/03/2025 1:00 PM EDT Office Visit [facility] Neurology - [place] [id number] [place] [address] Ban De La Garza MD [address] [facility] [address] [place] [address] Aida Rueda MD [address] [facility] [address] [place], [place] [address] 08/17/2025 2:15 PM EST Office Visit [facility] - [facility] [address] [place] [address] Ban De La Garza MD [address] [facility] [address] [place], [place] [address] Health Maintenance Due Date Last Done Comments [...] automated diff (01/31/2025 1:56 PM EDT) Pathologist [facility] WBC 9.0 4.5 - 11.0 K/ L [...] ult ONCOLOGY LABORATORY - [address] [place] [address], [facility] [phone] * (ABNORMAL) PROBNP (01/31/2025 1:56 PM EDT) [facility] ProBNP (pg/mL) 219(H) 0 - 125 pg/mL 01/31/2025 3:05 PM EDT [facility] Blood Venipuncture / Unknown 01/31/2025 1:56 PM EDT 01/31/2025 1:59 PM EDT Ban De La Garza MD LAB BLOOD ORDERABLES Final Res ult Performing Organization Address [facility] Co de Phone Number [facility] [address] [phone] * Lactate dehydrogenase (LDH) (01/31/2025 1:56 PM EDT) [facility] LDH 212 87 - 241 U/L 01/31/2025 3:05 PM EDT [facility] Blood Venipuncture / Unknown 01/31/2025 1:56 PM EDT 01/31/2025 1:59 PM EDT Ban De La Garza MD LAB BLOOD ORDERABLES Final Res ult Performing Organization Address [facility] Co de Phone Number [facility] [address] [place] [address], [facility] [phone] * (ABNORMAL) Comprehensive metabolic panel (01/31/2025 1:56 PM EDT) [facility] Sodium 137 136 - 146 meq/L 01/31/2025 3:05 PM EDT [facility] Potassium 4.3 3.5 - 5.1 meq/L 01/31/2025 3:05 PM EDT [facility] Chloride 106 102 - 112 meq/L 01/31/2025 3:05 PM EDT [facility] CO2 24 21 - 32 meq/L 01/31/2025 3:05 PM EDT [facility] Calcium 9.2 8.5 - 10.1 mg/dL 01/31/2025 3:05 PM EDT [facility] Glucose 110(H) 74 - 106 mg/dL 01/31/2025 3:05 PM [facility] BUN 12 7 - 22 mg/dL 01/31/2025 3:05 PM [facility] Creatinine 0.95 0.70 - 1.30 mg/dL 01/31/2025 3:05 PM [facility] BUN/Creatinine 13 8 - 20 01/31/2025 3:05 PM [facility] Albumin 3.9 3.4 - 5.0 g/dL 01/31/2025 3:05 PM [facility] Alkaline Phosphatase 86 27 - 136 U/L 01/31/2025 3:05 PM [facility] ALT 26 12 - 78 U/L 01/31/2025 3:05 PM [facility] AST 19 5 - 37 U/L 01/31/2025 3:05 PM [facility] Total Bilirubin 0.9 0.2 - 1.3 mg/dL 01/31/2025 3:05 PM [facility] Protein, Total 7.8 6.4 - 8.2 gm/dL 01/31/2025 3:05 PM [facility] Anion Gap 11 9 - 20 01/31/2025 3:05 PM [facility] A/G Ratio 1.0(L) 1.1 - 2.5 01/31/2025 3:05 PM [facility] Globulin 3.9 1.5 - 4.5 g/dL 01/31/2025 3:05 PM [facility] Osmolality Calc 274.2 mOsm/kg 3:05 PM [facility] eGFR (mL/min/1.73m2) >60 >=60 mL/min/1.7 3m2 01/31/2025 3:05 PM [facility] Comment:ESTIMATED GFR IS NOT ACCURATE CREATININE CLEARANCE IN PREDICTING GLOMERULAR FILTRATION RATE. ESTIMATED GFR IS NOT APPLICABLE FOR DIALYSIS PATIENTS. Blood Venipuncture / Unknown 01/31/2025 1:56 PM EDT 01/31/2025 1:59 PM EDT Ban De La Garza MD LAB BLOOD ORDERABLES Final Res ult [facility] [address] [phone] * EXTERNAL IMAGING - CT (01/20/2025 2:20 PM EDT) Anatomical Region Laterality Modality Other Result [facility] Historical Provider HEALTH MAINTENANCE Final Result * [...] 9:58 AM EST 10/24/2021 3:36 PM EST [facility] Historical Provider LAB BLOOD ORDERABLES Fi nal Result [facility] 1 [place] [address], [facility] [phone] from Last 3 Months or Most Recently Relevant to Health Maintenance Insurance BLUE CROSS/BLUE SHIELD Care Teams Room Server Relationship Specialty Start Date End Date Ban De La Garza MD [address] [facility] [address] [place] [address] Hematology and Oncology 01/13/24
--- OUTSIDE RECORDS SUMMARY | 2025-03-02 15:12 | XMS_ITS | Encounter Summary ---
Author Organization [employer] Address [address] [place] [address] Care Team Providers Care Streetsweeper Operator Name Role Phone Ban De La Garza MD Unavailable [phone] Reason for Referral * MRI (Routine) - Pending Review Specialty Diagnoses / Procedures Referred By Mitesh toth Referred To Contact Radiology Diagnoses Tremor Procedures MR Brain Without & With IV Contrast Reanna Thomas PA-C [address] [address] Phone: tel: fax: Referral ID Status Reason Start Date Expiration Date V isits Requested Visits Authorized [id number] Pending Review 02/02/2025 07/14/2025 1 1 Encounter Details Date Type Department Care Team (Late st Contact Info) Description 02/02/2025 Orders Only [facility] - [place] [address] [place] [address] Reanna Thomas PA-C [address] [place] [address] Tremor (Primary Dx) Social History Tobacco Use [...] Date Nik rded Speak language other than Citizen [place] at home Not on file 10/03/2023 Want [...] Description 05/03/2025 1:00 PM EDT Office Visit [facility] Neurology - [facility] [address] [place] [address] Ban De La Garza MD [address] [place], [place] [address] Aida Rueda MD [address] [place] [address] 08/17/2025 2:15 PM EST Office Visit [facility] - [address] [place] [address] Ban De La Garza MD [facility] [address] [place] [address] Scheduled Orders Name Type Priority Associated Diagnoses Orde r Schedule MR Brain Without & With IV Contrast Imaging Routine Tremor Expected: 02/02/2025, Expires: 03/05/2026 documented as of this encounter Visit Diagnoses Diagnosis Tremor- Primary Abnormal involuntary movements documented in this encounter Care Teams Streetsweeper Operator Relationship Specialty Start Date End Date Ban De La Garza MD [facility] [address] [place] [address] Hematology and Oncology 01/13/24 documented as of this encounter
--- OUTSIDE RECORDS SUMMARY | 2025-03-02 15:12 | XMS_ITS | Encounter Summary ---
Author Organization [employer] Address [address] [place] [address] Care Team Providers Care Obstetrician Gynecologist Name Role Phone Ban De La Garza MD Unavailable [phone] Reason for Visit * Reason Onset Date Comments Advice Only 02/02/2025 Encounter Details Date Type Department Care Team (Late st Contact Info) Description 02/02/2025 Telephone [facility] - [address] [place] [phone] Ban De La Garza MD [address] [place] [address] [address] [place] [address] Advice Only Social History Tobacco Use Types [...] Date Nik rded Speak language other than Tunisian at home Not on file 10/03/2023 Want [...] 02/03/2025 1:25 PM EDT Left message with [facility] [place] scheduling attn Esther informing her that I was faxing over the new order for brain MRI. Faxed order to [phone]. * Telephone Encounter - Reanna Thomas PA-C - 02/02/2025 4:39 PM EDT I've reordered it as regular brain. * Telephone Encounter - Reanna Thomas PA-C - 02/02/2025 4:14 PM EDT I assume you do want the MRI with stealth? * Telephone Encounter - Negro Ellis RN - 02/02/2025 4:07 PM EDT Esther, with [facility] scheduling called to ask about the MRI [...] Description 05/03/2025 1:00 PM EDT Office Visit [facility] Neurology - [place] [address] [place] [address] Ban De La Garza MD [facility] [address] [place] [address] [place] [address] Aida Rueda MD [address] [place] [address] 08/17/2025 2:15 PM EST Office Visit [facility] - [place] [address] [place] [address] Ban De La Garza MD [facility] [address] [place] [address] [place] [address] documented as of this encounter Visit Diagnoses Not on filedocumented in this encounter Care Teams Obstetrician Gynecologist Relationship Specialty Start Date End Date Ban De La Garza MD [facility] [address] [place] [address] Hematology and Oncology 01/13/24 documented as of this encounter
--- OUTSIDE RECORDS SUMMARY | 2025-03-02 15:12 | XMS_ITS | Encounter Summary ---
Author Organization [employer] Address [address] [place] [address] Care Team Providers Care Home Lighting Adviser Name Role Phone Ban De La Garza MD Unavailable [phone] Encounter Details Date Type Department Care Team (Late st Contact Info) Description 01/20/2025 Orders Only [place] [facility] - [place] [address] [place] [address] Provider, MD Collins [address] [place] [address] Social History Tobacco Use Types [...] Date Nik rded Speak language other than Guyanese at home Not on file 10/03/2023 Want [...] Description 05/03/2025 1:00 PM EDT Office Visit [facility] Neurology - [place] [address] [place] [address] Ban De La Garza MD [address] [place] [address] Aida Rueda MD [address] [place] [address] 08/17/2025 2:15 PM EST Office Visit [facility] - [place] [address] [place] [address] Ban De La Garza MD [address] [place] [address] documented as of this encounter Procedures Procedure Name Priority Date/Time Associated Diagnosis Comments EXTERNAL IMAGING - CT Routine 01/20/2025 2:20 PM EDT documented in this encounter Results * EXTERNAL IMAGING - CT (01/20/2025 2:20 PM EDT) Anatomical Region Laterality Modality Other us Historical Provider HEALTH MAINTENANCE Final Result documented in this encounter Visit Diagnoses Not on filedocumented in this encounter Care Teams Home Lighting Adviser Relationship Specialty Start Date End Date Ban De La Garza MD [address] [place] [address] Hematology and Oncology 01/13/24 documented as of this encounter
--- OUTSIDE RECORDS SUMMARY | 2025-03-02 15:13 | XMS_ITS | Encounter Summary ---
Author Organization [employer] Address [address] [place] [address] Care Team Providers Care Industrial Painter Name Role Phone Case, Pat Saravia RN Unavailable Unavailable Ban De La Garza MD Unavailable [phone] Encounter Details Date Type Department Care Team (Late st Contact Info) Description 10/30/2021 Transcribed Document [facility] [address] [place] [address] ProviderCollins MD [address] [place] [address] Social History Tobacco Use Types Packs/Day Years [...] Collins Montano MD - 10/30/2021 10:34 AM COMPLAINT ADJUSTER Patient: HEYDI SIMS Age: 61 years Sex: Male : 1960 Associated Diagnoses: None Author: ARETHA RICHEY MD-RAD Pre-OP/Procedure Diagnosis: _Unknown Cancer Indication: Need for iv treatment Procedure Performed: Single lumen Power Port placement Procedural MD: Ct Keno Writer/Runner: None Sedation: IV Conscious Sedation Findings: Successful Right IJ Power Port placement with ultrasound and fluroscopy guidance. Complications: None EBL: Minimal Specimen(s) Removed: None Full report to follow. documented in this encounter Plan of Treatment Upcoming Encounters Date Type Department Care Team (Late st Contact Info) Description 05/03/2025 1:00 PM EDT Office Visit [facility] Neurology - [place] [address] [place] [address] Ban De La Garza MD [address] [place] [address] [place] [address] Aida Rueda MD [address] [place] [address] 08/17/2025 2:15 PM EST Office Visit [place] [facility] - [place] [address] [place] [address] Ban De La Garza MD [address] [place] [address] documented as of this encounter Visit Diagnoses Not on filedocumented in this encounter Care Teams Industrial Painter Relationship Specialty Start Date End Date Case, Pat Saravia, RN Nurse Navigator 01/07/23 01/27/24 Ban De La Garza MD [address] [place] [address] Hematology and Oncology 01/13/24 documented as of this encounter
--- OUTSIDE RECORDS SUMMARY | 2025-03-02 15:13 | XMS_ITS | Encounter Summary ---
Author Organization [employer] Address [address] [place] [address] Care Team Providers Care Consumer Insight Analyst Name Role Phone CasePat RN Unavailable Unavailable Ban De La Garza MD Unavailable [phone] Encounter Details Date Type Department Care Team (Late st Contact Info) Description 10/30/2021 Transcribed Document [facility] [place] [address] [place] [address] ProviderCollins MD [address] [place] [address] Social History Tobacco Use Types Packs/Day Years [...] Collins Montano MD - 10/30/2021 10:09 AM WRITER PRODUCER Nursing Discharge Summary Entered On: 10/30/2021 10:10 [...] - 10/30/2021 10:09 EST Electronically signed by [facility], [facility] Conversion Job Tracer Cerner at 12/31/2022 1:34 PM CDT documented in this encounter Plan of Treatment Upcoming Encounters Date Type Department Care Team (Late st Contact Info) Description 05/03/2025 1:00 PM EDT Office Visit [facility] Neurology - [place] [place] [address] [place] [address] Ban De La Garza MD [facility] [place] [address] [place], [place] [address] Aida Rueda MD [address] [place] [address] 08/17/2025 2:15 PM EST Office Visit [facility] - [place] [address] [place] [address] Ban De La Garza MD [facility] [address] [place] [address] [place], [place] [address] documented as of this encounter Visit Diagnoses Not on filedocumented in this encounter Care Teams Consumer Insight Analyst Relationship Specialty Start Date End Date Case, Pat Saravia RN Nurse Navigator 01/07/23 01/27/24 Ban De La Garza MD [address] [place] [address] [place], [place] [address] Hematology and Oncology 01/13/24 documented as of this encounter
--- OUTSIDE RECORDS SUMMARY | 2025-03-02 15:13 | XMS_ITS | Encounter Summary ---
Author Organization [employer] Address [address] [place] [address] Care Team Providers Care Stamps Or Coins Salesperson Name Role Phone Case, Pat Saravia RN Unavailable Unavailable Ivanna De La Garza MD Unavailable [phone] Encounter Details Date Type Department Care Team (Late st Contact Info) Description 10/30/2021 Transcribed Document [facility] [place] [address] [place] [address] ProviderCollins MD [address] [place], [place] [address] Social History Tobacco Use Types Packs/Day Years [...] Collins Montano MD - 10/30/2021 11:22 AM TUG CAPTAIN [facility] [place] [address] HEYDI SIMS :1960 Visit Time:10/30/2021 Your [...] 3 days Comments Follow-up as instructed Where: [address] [place] [address] [facility] (1) Medications What How Much When Instructions [...] port is placed, you will get a automotive specialty technician's information card. The card has information about [...] and water are not available, use hand valve steamer. ? Change your dressing as told by [...] it is safe. General instructions ??? Take lrqn-ffi-ojlnsxh and prescription medicines only as told by [...] by your health care provider. Keep the automotive specialty technician's information card with you at all times. [...] provider. Document Revised: 03/30/2019 Document Reviewed: 03/30/2019 [employer] Patient Education ?? 2020 [employer] Moderate Conscious Sedation, Adult, Care After [...] eating solid foods. General instructions ??? Take yjiw-efw-bleztpm and prescription medicines only as told by [...] provider. Document Revised: 12/29/2020 Document Reviewed: 07/27/2020 [employer] Patient Education ?? 2020 [employer]. Emergency Awareness and Preventative Care STROKE is [...] Assistance with quitting is available by contacting 3-081-KQFRNOW. This is a free resource providing counseling, [...] was given the opportunity to ask questions. Patient/Factory Engineer Name: Patient/Factory Engineer Signature: Relationship to Patient: Clinician/Hospital Factory Engineer Signature: Date: Electronically signed by Elsa Hairston Conversion Clinical Cytogenetics Director Cerner at 12/31/2022 1:38 PM CDT documented in this encounter Plan of Treatment Upcoming Encounters Date Type Department Care Team (Late st Contact Info) Description 05/03/2025 1:00 PM EDT Office Visit [facility] Neurology - [address] [place] [address] [place] [address] Ivanna De La Garza MD [address] [place] [address] [place] [address] Aida Rueda MD [address] [place], [place] [address] 08/17/2025 2:15 PM EST Office Visit [facility] - [place] [address] [place] [address] Ivanna De La Garza MD [address] [place] [address] [place] [address] documented as of this encounter Visit Diagnoses Not on filedocumented in this encounter Care Teams Stamps Or Coins Salesperson Relationship Specialty Start Date End Date Case, Pat Saravia, RN Nurse Navigator 01/07/23 01/27/24 Ivanna De La Garza MD [address] [place] [address] [place] [address] Hematology and Oncology 01/13/24 documented as of this encounter
--- OUTSIDE RECORDS SUMMARY | 2025-03-02 15:13 | XMS_ITS | Encounter Summary ---
Author Organization [employer] Address [address] [place] [address] Care Team Providers Care Playground Aide Name Role Phone Case, Pat Saravia RN Unavailable Unavailable Ban De La Garza MD Unavailable [phone] Encounter Details Date Type Department Care Team (Late st Contact Info) Description 10/30/2021 Transcribed Document [facility] [place] [address] [place] [address] ProviderCollins MD [address] [place] [address] Social History Tobacco Use Types Packs/Day Years [...] - Historical ProviderMD - 10/30/2021 8:28 AM LOOPER OPERATOR Pre Procedure Adult Entered On: 10/30/2021 8:42 EST Performed On: 10/30/2021 8:28 EST by NNEKA ZHANG RN Height and Weight, Clinical Dosing Height Source : Stated Height Entry Format : [place] Height, Feet : 5 ft(Converted to: 152 cm, 60 Inch) Height, Inches : 7 Inch(Converted to: 0 ft 7 Inch, 17.78 cm) Clinical Height : 170.18 cm Weight Source : Standing scale Weight Entry Format : [place] Clinical Dosing Weight : 94.09 kg Weight, Pounds : 207 lb Body Surface Area (BSA) : 2.05 m2 Body Mass Index : 32.5 kg/m2 (HI) [place] Body Weight : 65 kg NNEKA ZHANG [...] NNEKA ZHANG RN - 10/30/2021 8:28 EST [place] Suicide Severity Rating Scale (C-SSRS) CSSRS Past [...] Obtained From : Patient Primary Language : Latvian Preferred Communication Mode : Verbal Communication Barrier : None Pearl Maker Needed : No NNEKA ZHANG RN - [...] Perception : No impairment [place] Moisture : Rarely moist [place] Activity : Walks frequently [place] Mobility : [...] Scale Risk Level : 25-45 Medium Risk [place] Fall Interventions : Adequate lighting, Bed in [...] Description 05/03/2025 1:00 PM EDT Office Visit [facility] Neurology - [place] [address] [facility] [address] [place] [address] Ban De La Garza MD [address] [place] [address] [address] [place] [address] Aida Rueda MD [facility] [address] [place] [address] 08/17/2025 2:15 PM EST Office Visit [facility] - [place] [address] [facility] [address] [place] [address] Ban De La Garza MD [address] [facility] [address] [place] [address] documented as of this encounter Visit Diagnoses Not on filedocumented in this encounter Care Teams Playground Aide Relationship Specialty Start Date End Date Case, Pat Saravia, RN Nurse Navigator 01/07/23 01/27/24 Ban De La Garza MD [address] [address] Hematology and Oncology 01/13/24 documented as of this encounter
--- OUTSIDE RECORDS SUMMARY | 2025-03-02 15:13 | XMS_ITS | Clinical Summary ---
Author Organization [facility] Address [address] [place] [address] Care Team Providers Care Mitochondrial Disorders Counselor Name Role Phone Moreno Witt MD Primary Care Provider [phone] Allergies Active Allergy Reactions Criticality Noted Date [...] 2005 UKY-Zoster Vaccines (1 of 2) 2010 JFE-ZAHXP-77 Vaccine (4 - season) 2024 08/03/2021, 10/18/2020, [...] patient's age to complete this topic [place] [address] [place] [address] Care Teams Mitochondrial Disorders Counselor Relationship Specialty Start Date End Date Moreno Witt MD [address] [place] [address] PCP - General 10/16/21
--- OUTSIDE RECORDS SUMMARY | 2025-03-02 15:13 | XMS_ITS | Encounter Summary ---
Author Organization [employer] Address [address] [place] [address] Care Team Providers Care Office Machine Punch Operator Name Role Phone Case, Pat Saravia RN Unavailable Unavailable Ban De La Garza MD Unavailable [phone] Encounter Details Date Type Department Care Team (Late st Contact Info) Description 02/21/2022 Transcribed Document [facility] [place] [address] [place], [place] [address] ProviderCollins MD [address] [place] [address] Social History Tobacco Use Types Packs/Day Years [...] Procedure Performed: Port removal Procedural MD: Jean Lean Manufacturing Specialist: Sedation: None Findings: Successful removal of chest port Complications: None EBL: Minimal Specimen(s) Removed: _ None Full report to follow. documented in this encounter Plan of Treatment Upcoming Encounters Date Type Department Care Team (Late st Contact Info) Description 05/03/2025 1:00 PM EDT Office Visit [facility] Neurology - [address] [place] [address] [place] [address] Ban De La Garza MD [address] [place] [address] [place] [address] Aida Rueda MD [address] [place], [place] [address] 08/17/2025 2:15 PM EST Office Visit [facility] - [place] [address] [place] [address] Ban De La Garza MD [address] [place] [address] [place] [address] documented as of this encounter Visit Diagnoses Not on filedocumented in this encounter Care Teams Office Machine Punch Operator Relationship Specialty Start Date End Date Case, Pat Saravia, RN Nurse Navigator 01/07/23 01/27/24 Ban De La Garza MD [facility] [address] [place] [address] [place] [address] Hematology and Oncology 01/13/24 documented as of this encounter
--- OUTSIDE RECORDS SUMMARY | 2025-03-02 15:13 | XMS_ITS | Encounter Summary ---
Author Organization [employer] Address [address] [place] [address] Care Team Providers Care Buffer Machine Name Role Phone Case, Pat Saravia RN Unavailable Unavailable Ban De La Garza MD Unavailable [phone] Encounter Details Date Type Department Care Team (Late st Contact Info) Description 02/21/2022 Transcribed Document [facility] [place] [address] [place], [place] [address] ProviderCollins MD [address] [place] [address] Social History Tobacco Use Types Packs/Day Years [...] At risk for sleep apnea / IMO 78984871 / Confirmed Hypertension / SNOMED CT 37863509 / Confirmed Diffuse large B-cell lymphoma of spleen / SNOMED CT 417507366 / Confirmed GERD - Gastro-esophageal reflux disease / SNOMED CT 2425123495 / Confirmed BPH (benign prostatic hyperplasia) / SNOMED CT 192538967 / Confirmed, Active Problems (5) At risk [...] EDT Height Source Stated Height Entry Format [place] Height/Length, COOK ISLANDER (ft) 5 ft Height/Length [place] ISLAND[place] 7 Inch CLINICALHEIGHT 170.18 cm [place] Body Weight 65 kg Weight Source Standing scale Weight Entry Format [place] Weight [place] lb 242 lb CLINICALWEIGHT 110 kg Body [...] Description 05/03/2025 1:00 PM EDT Office Visit [facility] Neurology - [address] [place] [address] [place] [address] Ban De La Garza MD [address] [place] [address] [place] [address] Aida uReda MD [address] [place] [address] 08/17/2025 2:15 PM EST Office Visit [facility] - [place] [address] [place] [address] Ban De La Garza MD [address] [facility] [address] [place] [id number] documented as of this encounter Visit Diagnoses Not on filedocumented in this encounter Care Teams Buffer Machine Relationship Specialty Start Date End Date Case, Pat Saravia RN Nurse Navigator 01/07/23 01/27/24 Ban De La Garza MD 0758 [facility] [address] [place] [id number] Hematology and Oncology 01/13/24 documented as of this encounter
--- OUTSIDE RECORDS SUMMARY | 2025-03-02 15:13 | XMS_ITS | Encounter Summary ---
Author Organization [employer] Address [address] [place] [address] Care Team Providers Care Gaming Director Name Role Phone Case, Pat Saravia RN Unavailable Unavailable Ban De La Garza MD Unavailable [phone] Encounter Details Date Type Department Care Team (Late st Contact Info) Description 02/21/2022 Transcribed Document [facility] [place] [address] [place] [address] ProviderCollins MD [address] [place] [address] Social History Tobacco Use Types Packs/Day Years [...] cannot use soap and water, use hand as400 developer. ? Change the bandage as often as [...] scar, or cover it up. ??? Take qegw-pex-ylzxxgj and prescription medicines only as told by [...] provider. Document Revised: 07/28/2020 Document Reviewed: 07/28/2020 [employer] Patient Education ? 2020 [employer] Implanted Port Removal Home Guide An [...] implanted port has two main parts: ??? [place]. The reservoir is the part where a [...] water are not available, use alcohol-based hand as400 developer. ? Change your dressing as told by [...] provider. Document Revised: 01/15/2021 Document Reviewed: 01/15/2021 [employer] Patient Education ?? 2020 [employer]. Pharmacology Moderate Conscious Sedation, Adult, Care [...] eating solid foods. General instructions ??? Take ayke-mzw-jfnzpvw and prescription medicines only as told by [...] provider. Document Revised: 12/29/2020 Document Reviewed: 07/27/2020 [employer] Patient Education ? 2020 [employer] documented in this encounter Plan of Treatment Upcoming Encounters Date Type Department Care Team (Late st Contact Info) Description 05/03/2025 1:00 PM EDT Office Visit [facility] - [facility] [address] [place] [address] Ban De La Garza MD [address] [facility] [address] [place] [address] Aida Rueda MD [address] [facility] [address] [place] [address] 08/17/2025 2:15 PM EST Office Visit [facility] - [place] [address] [place] [address] Ban De La Garza MD [address] [facility] [address] [place] [address] documented as of this encounter Visit Diagnoses Not on filedocumented in this encounter Care Teams Gaming Director Relationship Specialty Start Date End Date Case, Pat Saravia, RN Nurse Navigator 01/07/23 01/27/24 Ban De La Garza MD [address] [facility] [address] [place] [address] Hematology and Oncology 01/13/24 documented as of this encounter
--- OUTSIDE RECORDS SUMMARY | 2025-03-02 15:13 | XMS_ITS | Encounter Summary ---
Author Organization [employer] Address [address] [place] [address] Care Team Providers Care Bow Repairer Custom Name Role Phone Case, Pat Saravia RN Unavailable Unavailable Ivanna De La Garza MD Unavailable [phone] Encounter Details Date Type Department Care Team (Late st Contact Info) Description 02/21/2022 Transcribed Document [facility] Medicine [address] [place] [address] ProviderCollins MD [address] [place], [place] [address] Social History Tobacco Use Types Packs/Day Years [...] Montano MD - 02/21/2022 12:36 PM CDT [facility] [place] [address] HEYDI SIMS :1960 Visit Time:02/21/2022 Your [...] 3 days Comments Follow-up as instructed Where: [address] [place] [address]- Medications What How Much When Instructions Next [...] cannot use soap and water, use hand spring internship. ? Change the bandage as often as [...] scar, or cover it up. ??? Take swaq-lhz-ehkjqrr and prescription medicines only as told by [...] Reviewed: 07/28/2020 Elsevier Patient Education ?? 2020 [employer] Implanted Port Removal Home Guide An [...] implanted port has two main parts: ??? [place]. The reservoir is the part where a [...] water are not available, use alcohol-based hand spring internship. ? Change your dressing as told by [...] provider. Document Revised: 01/15/2021 Document Reviewed: 01/15/2021 [employer] Patient Education ?? 2020 [employer]. Moderate Conscious Sedation, Adult, Care After [...] eating solid foods. General instructions ??? Take xpjf-wai-shaxbbh and prescription medicines only as told by [...] Assistance with quitting is available by contacting 0-346-VSNENOW. This is a free resource providing counseling, support, and referral. Or you may contact your personal physician. 1Cast Suicide Prevention Lifeline: The National Suicide Prevention [...] was given the opportunity to ask questions. Patient/Nutrition Club Ambassador Name: Patient/Nutrition Club Ambassador Signature: Relationship to Patient: Clinician/Hospital Nutrition Club Ambassador Signature: Date: documented in this encounter Plan of Treatment Upcoming Encounters Date Type Department Care Team (Late st Contact Info) Description 05/03/2025 1:00 PM EDT Office Visit [facility] Neurology - [place] [address] [place] [address] Ivanna De La Garza MD [address] [place] [address] [place] [address] Aida Rueda MD [address] [place] [address] 08/17/2025 2:15 PM EST Office Visit [facility] - [place] [address] [place] [address] Ivanna De La Garza MD [address] [place] [address] documented as of this encounter Visit Diagnoses Not on filedocumented in this encounter Care Teams Bow Repairer Custom Relationship Specialty Start Date End Date Case, Pat Saravia RN Nurse Navigator 01/07/23 01/27/24 Ivanna De La Garza MD [address] [place] [address] Hematology and Oncology 01/13/24 documented as of this encounter
--- OUTSIDE RECORDS SUMMARY | 2025-03-02 15:13 | XMS_ITS | Encounter Summary ---
Author Organization [employer] Address [address] [place] [address] Care Team Providers Care Wreath And Garland Maker Hand Name Role Phone CasePat RN Unavailable Unavailable Ban De La Garza MD Unavailable [phone] Encounter Details Date Type Department Care Team (Late st Contact Info) Description 02/21/2022 Transcribed Document [facility] [place] [address] [place] [address] ProviderCollins MD [address] [place] [address] Social History Tobacco Use Types Packs/Day Years [...] On: 02/21/2022 12:34 EDT by KEVIN FOFANA, yeast fermentation attendant Documentation Discharge Date/Time : 02/21/2022 12:45 EDT [...] No Discharge, Comment : Keep all appointments. KEVIN FOFANA RN - 02/21/2022 12:34 EDT Electronically signed by Yovanny [facility] Conversion Automotive Title Clerk Cerner at 12/31/2022 1:28 PM CDT documented in this encounter Plan of Treatment Upcoming Encounters Date Type Department Care Team (Late st Contact Info) Description 05/03/2025 1:00 PM EDT Office Visit [facility] Neurology - [address] [place] [address] [place] [address] Ban De La Garza MD [facility] [address] [place] [address] [place] [address] Aida Rueda MD [address] [place] [address] 08/17/2025 2:15 PM EST Office Visit [facility] - [place] [address] [place] [address] Ban De La Garza MD [facility] [address] [place] [address] [place] [address] documented as of this encounter Visit Diagnoses Not on filedocumented in this encounter Care Teams Wreath And Garland Maker Hand Relationship Specialty Start Date End Date Case, Pat Saravia RN Nurse Navigator 01/07/23 01/27/24 Ban De La Garza MD [address] [place] [address] [place] [address] Hematology and Oncology 01/13/24 documented as of this encounter
--- OUTSIDE RECORDS SUMMARY | 2025-03-02 15:13 | XMS_ITS | Encounter Summary ---
Author Organization [employer] Address [address] [place] [address] Care Team Providers Care Finish Opener Name Role Phone Case, Pat Saravia RN Unavailable Unavailable Ban De La Garza MD Unavailable [phone] Encounter Details Date Type Department Care Team (Late st Contact Info) Description 10/30/2021 Transcribed Document [facility] [place] [address] [place] [address] ProviderCollins MD [address] [place] [address] Social History Tobacco Use Types Packs/Day Years [...] Collins Montano MD - 10/30/2021 10:07 AM DRY CHARGE PROCESS ATTENDANT Patient: HEYDI SIMS Age: 61 years Sex: Male : 1960 Associated Diagnoses: None Author: KAIMNI ZHOU PA-C Postoperative Information The patient presents for a fluoroscopically guided procedure requiring sedation. The patient is requiring snf IV access. Review of Systems Constitutional: Negative. [...] At risk for sleep apnea / IMO 80402173 / Confirmed Diffuse large B-cell lymphoma of spleen / SNOMED CT 263210204 / Confirmed BPH (benign prostatic hyperplasia) / SNOMED CT 900382879 / Confirmed GERD - Gastro-esophageal reflux disease / SNOMED CT 5614390376 / Confirmed Hypertension / SNOMED CT 78094675 / Confirmed, Active Problems (5) At risk [...] EST Height Source Stated Height Entry Format [place] Height/Length, MARSH[place] (ft) 5 ft Height/Length MARSH[place]ESE 7 Inch CLINICALHEIGHT 170.18 cm [place] Body Weight 65 kg Weight Source Standing scale Weight Entry Format [place] Weight [place] lb 207 lb CLINICALWEIGHT 94.09 kg Body [...] ordered procedure/exam . Electronically signed by Yovanny, [facility] Conversion Director Data Management Cerner at 12/31/2022 1:15 PM CDT documented in this encounter Plan of Treatment Upcoming Encounters Date Type Department Care Team (Late st Contact Info) Description 05/03/2025 1:00 PM EDT Office Visit [facility] Neurology - [address] [place] [address] [place] [address] Ban De La Garza MD [facility] [address] [place] [address] [place] [address] Aida Rueda MD [address] [place] [address] 08/17/2025 2:15 PM EST Office Visit [facility] - [place] [address] [place] [address] Ban De La Garza MD [address] [place] [address] [place] [address] documented as of this encounter Visit Diagnoses Not on filedocumented in this encounter Care Teams Finish Opener Relationship Specialty Start Date End Date Case, Pat Saravia, RN Nurse Navigator 01/07/23 01/27/24 Ban De La Garza MD [address] [place] [address] [place], [place] [address] Hematology and Oncology 01/13/24 documented as of this encounter
--- OUTSIDE RECORDS SUMMARY | 2025-03-02 15:13 | XMS_ITS | Encounter Summary ---
Author Organization [employer] Address [address] [place] [address] Care Team Providers Care Instrument Inspector Name Role Phone Case, Pat Saravia RN Unavailable Unavailable Ban De La Garza MD Unavailable [phone] Encounter Details Date Type Department Care Team (Late st Contact Info) Description 02/21/2022 Transcribed Document [facility] Family Medicine [address] [place] [address] ProviderCollins MD [address] [place] [address] Social History Tobacco Use Types Packs/Day Years [...] Source : Stated Height Entry Format : [place] Height, Feet : 5 ft(Converted to: 152 cm, 60 Inch) Height, Inches : 7 Inch(Converted to: 0 ft 7 Inch, 17.78 cm) Clinical Height : 170.18 cm Weight Source : Standing scale Weight Entry Format : [place] Clinical Dosing Weight : 110 kg Weight, Pounds : 242 lb Body Surface Area (BSA) : 2.19 m2 Body Mass Index : 38 kg/m2 (HI) [place] Body Weight : 65 kg KEVIN FOFANA [...] KEVIN FOFANA RN - 02/21/2022 9:47 EDT [place] Suicide Severity Rating Scale (C-SSRS) CSSRS Past [...] Spouse Legal Guardian : No Support Person/Patient Transportation Project Manager : Yes Want Family/Rep/Phys Notified of Admit : No Emergency Contact #1 : Shayla Emergency Contact #1 Emergency Contact #1 Relationship : spouse Emergency Contact #2 : n/a Emergency Contact #2 Phone Number : n/a Emergency Contact #2 Relationship : n/a Chief Complaint : port removal Information Obtained From : Patient, Spouse Primary Language : Mozambican Preferred Communication Mode : Verbal Communication Barrier : None Biometric Technician Needed : No KEVIN FOFANA RN - [...] Scale Risk Level : 0-24 Low Risk Norris Fall Interventions : Adequate lighting, Assistive devices [...] Description 05/03/2025 1:00 PM EDT Office Visit [facility] Neurology - [address] [place] [address] Ban De La Garza MD [facility] [address] [place] [address] Aida Rueda MD [address] [place] [address] 08/17/2025 2:15 PM EST Office Visit [facility] - [address] [place] [address] Ban De La Garza MD [facility] [place] [id number] documented as of this encounter Visit Diagnoses Not on filedocumented in this encounter Care Teams Instrument Inspector Relationship Specialty Start Date End Date Case, Pat Saravia, RN Nurse Navigator 01/07/23 01/27/24 Ban De La Garza MD [address] [place] [address] Hematology and Oncology 01/13/24 documented as of this encounter
--- OUTSIDE RECORDS SUMMARY | 2025-03-02 15:13 | XMS_ITS | Encounter Summary ---
Author Organization [employer] Address [address] [place] [address] Care Team Providers Care Data Base Design Analyst Name Role Phone Case, Pat Saravia RN Unavailable Unavailable Ban De La Garza MD Unavailable [phone] Encounter Details Date Type Department Care Team (Late st Contact Info) Description 10/30/2021 Transcribed Document [facility] Family Medicine [address] [place] [address] ProviderCollins MD [address] [place] [address] Social History Tobacco Use Types Packs/Day Years [...] Collins Montano MD - 10/30/2021 10:06 AM MODELING AGENT Patient Education Materials Follows: Moderate Conscious Sedation, [...] eating solid foods. General instructions ??? Take lysz-xpg-rolyldj and prescription medicines only as told by [...] provider. Document Revised: 12/29/2020 Document Reviewed: 07/27/2020 [employer] Patient Education ? 2020 [employer] Procedures Implanted Port Insertion, Care After [...] port is placed, you will get a cupola hoist operator's information card. The card has information [...] and water are not available, use hand slide fastener chain assembler. ? Change your dressing as told by [...] it is safe. General instructions ??? Take bwlr-ryw-rmfihaf and prescription medicines only as told by [...] by your health care provider. Keep the cupola hoist operator's information card with you at all [...] Reviewed: 03/30/2019 Elsevier Patient Education ? 2020 [employer] documented in this encounter Plan of Treatment Upcoming Encounters Date Type Department Care Team (Late st Contact Info) Description 05/03/2025 1:00 PM EDT Office Visit [facility] Neurology - [address] [place] [address] Ban De La Garza MD [address] [place] [address] Aida Rueda MD [address] [place] [address] 08/17/2025 2:15 PM EST Office Visit [facility] - [address] [place] [address] Ban De La Garza MD [facility] [address] [place] [address] documented as of this encounter Visit Diagnoses Not on filedocumented in this encounter Care Teams Data Base Design Analyst Relationship Specialty Start Date End Date Case, Pat Saravia, RN Nurse Navigator 01/07/23 01/27/24 Ban De La Garza MD [facility] [address] [place], [place] [id number] Hematology and Oncology 01/13/24 documented as of this encounter
[2025-03-02 15:34] LABS: Basophils # 0.1 K/mm3 (0-0.2); Basophils % 0.8 % (0.1-2.0); Eosinophils # 0.2 Kmm3 (0.0-0.4); Eosinophils % 1.6 % (0.1-12.0); Hematocrit 45.6 % (42.0-52.0); Hemoglobin 15.8 g/dL (14.1-18.0); Immature Granulocytes # 0.02 10^3uL; Immature Granulocytes % 0.2 %; Lymphocytes # 1.6 K/mm3 (0.7-4.5); Lymphocytes % 17.4 % (10-50); Mean Corpuscular HGB Conc 34.6 g/dL (31.8-35.4); Mean Corpuscular Volume 92.3 fl (80-94); Mean Platelet Volume 10.4 fl (7.4-10.4); Monocytes # 1.2 K/mm3 (0.1-1.0); Monocytes % 12.9 % (1.7-9.3); Neutrophils # 6.3 K/mm3 (1.8-7.8); Neutrophils % 67.1 % (37.0-80.0); Nucleated Red Blood Cells # 0 10^3/uL; Nucleated Red Blood Cells % 0 %; Platelet Count 298 K/mm3 (142-424); Red Blood Count 4.94 M/mm3 (4.60-6.20); Red Cell Distribution Width 12.5 % (11.5-17.5); Red Cell Distribution Width-SD 42.2 fL; White Blood Count 9.4 K/mm3 (4.8-10.8)
[2025-03-02] MEDS: ASPIRIN 81MG CHEWABLE TABLET 324 MG PO (15:34)
--- NOTE | 2025-03-02 15:42 | ED_ITS ---
Discharge Plan Disposition Patient Disposition: Home, Self-Care Prescriptions Prescriptions: No Action pantoprazole 40 mg tablet,delayed release (DR/EC) 40 mg PO ONCE Patient Comments: TAKE ONE TABLET BY MOUTH EVERY DAY propranolol 120 mg capsule,extended release 24 hr See Rx Instructions .ROUTE .COMPLEX Qty: 90 1RF Dose Instruction: TAKE ONE CAPSULE BY MOUTH EVERY DAY FOR BLOOD PRESSURE AND tremor Rx Instructions: TAKE ONE CAPSULE BY MOUTH EVERY DAY FOR BLOOD PRESSURE AND tremor venlafaxine 75 mg capsule,extended release 24hr 75 mg PO DAILY Qty: 30 2RF tamsulosin 0.4 mg capsule See Rx Instructions .ROUTE .COMPLEX Qty: 90 1RF Dose Instruction: TAKE ONE CAPSULE BY MOUTH EVERY DAY AT BEDTIME Rx Instructions: TAKE ONE CAPSULE BY MOUTH EVERY DAY AT BEDTIME Referrals Follow up/Referrals: Moreno Witt MD [Primary Care Provider, Medical] - See instructions Activity Restrictions/Add. Instructions Additional Instructions/Restrictions: Call your family doctor to establish care for this visit to the emergency department and schedule follow-up within 48 hours to ensure improvement. If you have any worsening of your condition or any other concerning signs or symptoms, return to the emergency department or your primary care doctor for further evaluation. Also follow-up with cardiology as you have been for chronic management Clinical Impressions Clinical Impression: Near syncope Instructions Patient Instructions: DI for Syncope in Adults (Fainting), DI for Syncope in Children (Fainting) Print Language Print Language: Welsh Discharge ED Provider: Leighton Manzo General Adult HPI General Chief complaint: Syncope Stated complaint: syncope Time Seen by Provider: 03/02/25 15:05 Mode of Arrival: Wheelchair Source of Information: Patient and Spouse Description of Symptoms (Recalled from ER Triage Doc. by RN): pt was here getting an outpatient mri done of head that was ordered by dr william who is his cx doctor, pt has hx of spleen cx, pt getting mri bc of a twitch that is occuring all over body, pt had gotten mri contrast for 5-6 miniutes when he felt hot and flush and sweaty and they called a rapid response History of Present Illness HPI narrative: Please note that above description of symptoms, in this electronic medical record under categorization of recalled from ER triage doctor by RN are reflective of an initial nursing assessment, however, is not reflective of my full history and physical exam that was personally taken and clarified. Consequentially, this preceding description of symptoms, which may include the patient's categorized chief complaint in the EMR, do not reflect my personal clinical impression, and the ultimate description of history of present illness and patient stated complaints should be deferred to this section of the note. Unless stated otherwise or congruent with this section of the note, additional signs, symptoms, or incongruence should be interpreted as inaccurate with my clinical impression. Related Data Home Medications ?Medication ?Instructions ?Recorded ?Confirmed pantoprazole 40 mg tablet,delayed 40 mg PO ONCE 02/16/25 release Previous Rx's ?Medication ?Instructions ?Recorded propranolol 120 mg capsule,24 See Rx Instructions .Rou te 12/16/24 hr,extended release .COMPLEX #90 caps venlafaxine 75 mg capsule,extended 75 mg PO DAILY #30 caps 02/28/25 release 24 hr tamsulosin 0.4 mg capsule See Rx Instructions .Route 0 03/01/25 .COMPLEX #90 caps Allergies Allergy/AdvReac Type Severity Reaction Status Date / Time Sulfa (Sulfonamide Allergy Severe Palpitation Verified 02/16/25 13:09 Antibiotics) s [facility] Disclaimer: The information contained in this section may have been updated after the patient was seen, as this information can be updated by other users. Medical History (Updated 03/02/25 @ 18:44 by Leighton Manzo MD) Cardiac murmur Pulmonary edema Abnormal CT scan of heart Coronary artery calcification seen on CT scan Major depressive disorder Spleen cancer Benign prostate hyperplasia History of gastroesophageal reflux (GERD) Surgical History History of hernia repair Hx of splenectomy History of colonoscopy Family History Other Family history of cancer Social History Smoking Status: Never smoker second hand exposure: No alcohol intake: never counseling given: No substance use type: denies use counseling given: No current occupational status: retired Travel in the last 8 weeks?: None adopted: No caregiver/support person: No foster care: No household members: significant other housing: house lives independently: Yes marital status: number of children: 41 number of grandchildren: 2 education level: high school current occupation: retired; worked at [employer] Hx Recent Travel: No sexually active: No caffeine: Yes physical activity: none working smoke detector in home: Yes fire extinguisher in home: Yes carbon monox detector in home: Yes firearms in home: Yes firearms unloaded and locked: Yes do you feel safe at home: Yes victim of physical abuse: No victim of emotional abuse: No victim of sexual abuse: No would you like helpful sources: No Have you lived/traveled outside US in past 30 days?: No Contact w/someone who lives/traveled outside US past 30 days?: No Exposure to someone with infectious disease in past 14 days?: No Do you have a fever (greater than 100.4 F or 38 C)?: No Have you tested positive for COVID-19?: No Exposed to someone with COVID-19 in past 14 days?: No Do you have a sore throat?: No Do you have a cough?: No Do you have any weakness?: No Do you have any diarrhea?: No Are you experiencing any unusual bleeding?: No Do you have any muscle aches/pain?: No Do you have any abdominal pain?: No Are you experiencing loss of taste or smell?: No Other Medical History Have you received the Flu Vaccine for this season: Yes Have you received the Pneumonia Vaccine: Yes ROS Obtained: Yes All systems reviewed & no additional complaints except as documented Physical Exam General General appearance: alert and in no apparent distress Head Head exam: atraumatic and normocephalic Eye Eye exam: Present normal appearance, PERRL and EOMI Neck Neck exam: Present normal inspection, full ROM and trachea midline Respiratory Respiratory exam: Present normal lung sounds bilaterally; Absent respiratory distress, wheezes, stridor, accessory muscle use or prolonged expiratory phase Cardiovascular Cardiovascular exam: Present regular rate, normal rhythm, normal heart sounds and other (Pulses equal symmetric in upper and lower extremities) Abdominal Exam Abdominal exam: Present soft and scar (From previous splenectomy); Absent distention, tenderness, guarding or pulsatile mass Extremities Exam Extremities exam: Absent edema Neurological Exam Neurological exam: Present alert, oriented X3 and CN II-XII intact; Absent motor sensory deficit Skin Skin exam: Present warm and dry; Absent diaphoresis or erythema Medical Decision Making Medical Records Medical records reviewed: Yes I reviewed the patient's medical records. Screening: Per USPSTF and CDC recommendations, given the prevalence of disease in our region, it is our hospital?s policy to screen for HIV and viral Hepatitis for all patients aged 18 and over and those with ongoing risk factors. Jarred Inquiry Pt receiving controlled substance: No Jarred was queried for this patient: No Vital Signs: 03/02/25 14:57 03/02/25 15:07 03/02/25 15:13 Temperature 98.2 F Temperature Source Oral Pulse Rate 58 L 64 Pulse Rate [Left Radial] 58 L Respiratory Rate 21 20 14 Blood Pressure 112/66 114/66 Blood Pressure [Right Arm] 112/66 Blood Pressure Mean 81 77 Blood Pressure Mean [Right Arm] 81 02 Sat by Pulse Oximetry 96 96 96 Oxygen Delivery Method Room Air 03/02/25 15:30 03/02/25 16:01 03/02/25 16:31 Temperature Temperature Source Pulse Rate 60 61 65 Pulse Rate [Left Radial] Respiratory Rate 23 19 20 Blood Pressure 120/65 111/68 108/52 L Blood Pressure [Right Arm] Blood Pressure Mean 83 70 Blood Pressure Mean [Right Arm] 02 Sat by Pulse Oximetry 95 96 98 Oxygen Delivery Method Room Air 03/02/25 17:01 03/02/25 17:31 Temperature Temperature Source Pulse Rate 79 Pulse Rate [Left Radial] Respiratory Rate 18 Blood Pressure 122/69 113/58 L Blood Pressure [Right Arm] Blood Pressure Mean 83 76 Blood Pressure Mean [Right Arm] 02 Sat by Pulse Oximetry 99 Oxygen Delivery Method Lab Data Lab Results 03/02/25 15:10: WBC 9.4, RBC 4.94, Hgb 15.8, Hct 45.6, MCV 92.3, MCH 32.0 H, MCHC 34.6, RDW 12.5, Plt Count 298, MPV 10.4, Neut % (Auto) 67.1, Lymph % (Auto) 17.4, [place] % (Auto) 12.9 H, Eos % (Auto) 1.6, Baso % (Auto) 0.8, Neut # (Auto) 6.3, Lymph # (Auto) 1.6, [place] # (Auto) 1.2 H, Eos # (Auto) 0.2, Baso # (Auto) 0.1, Sodium 134 L, Potassium 4.5, Chloride 102, Carbon Dioxide 28, Anion Gap 8.5, BUN 14, Creatinine 0.80, Estimated Creat Clear 120, Estimated GFR 97, Est GFR ( Amer) 118, Glucose 122 H, Calcium 9.0, Magnesium 1.8, Total Bilirubin 1.4 H, AST 29, ALT 20, Alkaline Phosphatase 83, Troponin I < 0.01, N T-Pro-B Natriuret Pep 307 H, Total Protein 7.5, Albumin 4.2, Globulin 3.3 H, Albumin/Globulin Ratio 1.3, TSH 2.23, Thyroxine (T4) 9.2 03/02/25 17:54: Troponin I < 0.01 03/02/25 15:10 03/02/25 15:10 Orders (Tests/Meds): ED MEDICATIONS Discontinued Medications Generic Name Dose Route Start Last Admin Trade Name Freq PRN Reason Stop Dose Admin Aspirin 324 mg 03/02/25 15:28 03/02/25 15:34 Aspirin 81mg Chewable Tablet PO 03/02/25 15:29 324 mg ONCE ONE Administration ORDERS Category Date Time Status CBC w/Auto Diff [Complete Blood Count Auto Diff] Stat Lab 03/02/25 15:10 Completed CMP [Comprehensive Metabolic Panel] Stat Lab 03/02/25 15:10 Completed Magnesium Stat Lab 03/02/25 15:10 Completed NT Pro Brain Natriuretic Pep. Stat Lab 03/02/25 15:10 Completed T4 (Thyroxine) Stat Lab 03/02/25 15:10 Completed TSH [Thyroid Stimulating Hormone] Stat Lab 03/02/25 15:10 Completed Trop I [Troponin I] Stat Lab 03/02/25 15:10 Completed Troponin I Q3H Lab 03/02/25 17:54 Completed Troponin I Q3H Lab 03/02/25 21:30 Ordered Medical Decision Narrative: This a 64-year-old male with history of hypertension, lymphoma status post splenectomy, right sided tremor presenting with concern for presyncope versus medication reaction. Patient was being seen in an outpatient setting for an MRI of his brain because he has a right sided tremor involving his face, right upper extremity and right lower extremity. Was in the MRI machine for approximately 45 minutes. Received contrast for the contrasted scan portion shortly after receiving contrast became diaphoretic, hypotensive, felt like he was get a pass out. Did not syncopized. Denies any chest pain, palpitation, nausea or vomiting, just felt globally weak and sweaty. Glucose was checked upstairs in the MRI, just over 100. Without intervention, just a couple minutes later, states that he felt better, came down to the emergency department. On my evaluation, patient states he feels great. No acute complaints. Asking for water as he feels thirsty. History was obtained via conversation with patient. On arrival, patient hemodynamically stable, alert, oriented x4, appropriate, GCS 15, moving all extremities spontaneously, pupils equal and reactive to light. Full physical exam performed and significant for well-appearing male no acute distress. Warm, dry, pink skin. Normotensive, mildly bradycardic, but no obvious murmurs gallops or rubs. Patient's lower extremities are nonedematous. Pulses equal and symmetric. Motor, sensory, cerebellar exams within normal limits. Differential includes vasovagal reaction, anxiety, panic, ACS, PA medication intolerance, medication adverse reaction, medication allergy, among others. Patient placed on continuous cardiac monitoring and continuous pulse ox with initial blood pressure 112/66, heart rate 58, saturation 96% on room air. Independent interpretation of EKG shows sinus rhythm 60 bpm with VA 189, QRS 101, QTc 404. No acute ischemic change, but mildly peaked T waves. Unknown if this is normal for patient or if these are hyperacute. No reciprocal change. Patient was given 324 aspirin for symptomatic management and correction of underlying abnormalities. Workup independently interpreted and significant for nonactionable CBC or chemistry, patient has normal initial troponin and nonactionable BNP. Thyroid studies normal. On independent interpretation of imaging, no acute intracranial abnormality on MRI of the head with and without contrast. See radiology read for full review of final results. Patient was placed in observation beginning at 3:30 PM in order to mild evolving cardiac insult and determine need for admission versus home-going. The patient was provided meds, repeat exams, cardiac monitoring while awaiting results. Patient resting without complaint on reevaluation. Independent interpretation of results demonstrated stable and undetectable troponin. On reevaluation, ricardo at baseline. At this time, I feel patient is appropriate for discharge. Total observation time 3h. Given patient presentation, workup, history, this most likely represents vagal reaction in the setting of medical procedure. Because patient at baseline without signs or symptoms of clinical decompensation, deemed appropriate for discharge. Results were relayed to patient who voiced understanding and were agreeable to outpatient management and follow up. I discussed my clinical impression with patient and answered all questions. At this time, the evidence for any other entities in the differential is insufficient to warrant any further testing or ED observation. This was explained as well. Advisory was given that persistent or worsening symptoms require further evaluation. I confirmed the understanding of this discussion. Senior Windows Engineer disclaimer Much of this encounter note is an electronic crust sorter spoken language to printed text. Electronic crust sorter of the spoken language may permit errors. Although I have reviewed the note, some errors may still exist. Critical Care Critical Care Time Critical Care Time: No
[2025-03-02 15:43] LABS: Albumin Level 4.2 g/dl (3.5-5.0); Chloride 102 mmol/L (98-107); Potassium 4.5 mmoL/L (3.5-5.1); Sodium 134 mmol/L (136-145)
[2025-03-02 15:45] LABS: Blood Urea Nitrogen 14 mg/dl (9-20); Creatinine Clearance Estimated 120 mL/min (50-200); Estimated Glomerular Filt Rate 97 ml/min (>60); GFR (African American) 118 ML/MIN (>60)
[2025-03-02 15:46] LABS: Alanine Aminotransferase 20 U/L (12-78); Albumin/Globulin Ratio 1.3 (1.1-1.8); Alkaline Phosphatase 83 U/L (38-126); Anion Gap 8.5 mEq/L (5-15); Aspartate Amino Transferase 29 U/L (17-59); Bilirubin,Total 1.4 mg/dl (0.2-1.3); Carbon Dioxide 28 mmol/L (22.0-30.0); Globulin 3.3 g/dL (1.3-3.2); Glucose 122 mg/dl (74-100); Magnesium 1.8 mg/dl (1.6-2.3); Total Protein,Serum 7.5 g/dl (6.3-8.2)
[2025-03-02 15:50] LABS: NT Pro Brain Natriuretic Pep. 307 pg/mL (0-125)
[2025-03-02 15:57] LABS: T4 (Thyroxine) 9.2 ug/dl (5.53-11.0)
[2025-03-02 15:59] LABS: Troponin I < 0.01 ng/ml (0.00-0.034)
[2025-03-02 16:11] LABS: Thyroid Stimulating Hormone 2.23 uIU/mL (0.465-4.68)
[2025-03-02 18:37] LABS: Troponin I < 0.01 ng/ml (0.00-0.034)
== END 2025-03-02 18:55 | disposition home or self-care (01) ==
PROVIDERS: Emergency Provider Emergency Medicine; PCP Internal Medicine
DX: R55 Syncope and collapse (principal)
CPT/HCPCS: 80053; 83735; 83880; 84436; 84443; 84484; 85025; 93005; 99284

== ENCOUNTER 2025-03-24 13:47 | Outpatient (CLI) | payer OTHER, SELFPAY ==
--- OUTSIDE RECORDS SUMMARY | 2025-01-31 14:30 | XMS_ITS | Encounter Summary ---
Author Organization [employer] ([place], [place], [place], [place]) Address [address] [place] [address] Care Team Providers Care Shrimp Header Name Role Phone Ban De La Garza MD Unavailable [phone] Reason for Referral * Consultation (Routine) - Authorized Specialty Diagnoses / Procedures Referred By Mitesh toth Referred To Contact Neurology Diagnoses History of non-Hodgkin lymphoma Tremor New PT - Right Side Tremors, Hx Lymphoma Procedures Scheduled Ban De La Garza MD [facility] [address] [place] [address] Phone: tel: fax:[phone] Aida Rueda MD [address] [facility] [address] [place] [address] Phone: tel: fax: Referral ID Status Reason Start Date Expiration Date Visits Requested Visits Authorized [id number] Authorized Specialty Services Required 01/31/2025 07/14/2025 1 1 * MRI (Emergency) - Pending Review Specialty Diagnoses / Procedures Referred By Mitesh toth Referred To Contact Radiology Diagnoses History of non-Hodgkin lymphoma Pulmonary edema GERD (gastroesophageal reflux disease) Procedures MRI BRAIN STEALTH W WO CONTRAST Ban De La Garza MD [address] [facility] [address] [place] [address] Phone: tel: fax:[phone] [place] [address] Phone: tel: Referral ID Status Reason Start Date Expiration Date V isits Requested Visits Authorized [id number] Pending Review 01/31/2025 07/14/2025 1 1 * Consultation (Routine) - Pending Review Specialty Diagnoses / Procedures Referred By Mitesh toth Referred To Contact Cardiology Diagnoses History of non-Hodgkin lymphoma Pulmonary edema GERD (gastroesophageal reflux disease) Ban De La Garza MD [address] [place] [address] Phone: tel: fax:[phone] [place] [address] [address] [place] [facility] Phone: tel: Referral ID Status Reason Start Date Expiration Date Visits Requested Visits Authorized [id number] Pending Review Specialty Services Required 01/31/2025 07/14/2025 1 1 * Echocardiography (Routine) - Pending Review Specialty Diagnoses / Procedures Referred By Mitesh toth Referred To Contact Cardiology Diagnoses History of non-Hodgkin lymphoma Pulmonary edema GERD (gastroesophageal reflux disease) Procedures ECHO COMPLETE (DOPPLER / COLOR) W OR WO CONTRAST Ban De La Garza MD [address] [place] [address] Phone: tel: fax:[phone] [place] [address] Phone: tel: Referral ID Status Reason Start Date Expiration Date V isits Requested Visits Authorized [id number] Pending Review 02/01/2025 07/14/2025 1 1 Reason for Visit * Reason Comments Follow-up History of non-Hodgk in's lymphoma Encounter Details Date Type Department Care Team (Late st Contact Info) Description 01/31/2025 2:30 PM EDT Office Visit [facility] - [address] [facility] [address] [place] [address] Ban De La Garza MD [address] [place] [address] [place] [id number] History of non-Hodgkin lymphoma (Primary Dx); Pulmonary edema; GERD (gastroesophageal reflux disease); Tremor Social History Tobacco Use Types Packs/Day Years Used Date Smoking Tobacco: Former Cigarettes Smokeless Tobacco: Never Comments:1 cigar per day, qu it 10 yrs ago. Alcohol Use Standard Drinks/Week Comments Yes 1 (1 standard drink = 0.6 oz pur e alcohol) Family and Community Support Answer Jeffry e Recorded Help with Day to Day Activities Not on file 10/03/2023 Feeling Lonely or Isolated Not on file 10/03 Educational Attainment Answer Date Nik rded Speak language other than Niuean at home Not on file 10/03/2023 Want help with school or training Not on file 10/03/2023 Substance Use Answer Date Recorded Used prescription meds for non-medical reasons N ot on file 10/03/2023 Used illegal drugs past 12 months Not on file 10/03/2023 Sex and Gender Information Value Date Recorded Sex Assigned at Male 03/12/2022 9:01 PM CDT Legal Sex Male 9:01 PM CDT Gender Identity Male 03/12/2022 9:01 PM CDT Sexual Orientation Not on file documented as of this encounter Last Filed Vital Signs Vital Sign Reading Time Taken Comments Blood Pressure 169/90 01/31/2025 2:04 PM EDT Pulse 74 01/31/2025 2:04 PM EDT Temperature 36.7 C (98 F) 01/31/2025 2:04 PM EDT Respiratory Rate 18 01/31/2025 2:04 PM EDT Oxygen Saturation 95% 01/31/2025 2:04 PM EDT Inhaled Oxygen Concentration - - Weight 117.5 kg (259 lb) 01/31/2025 2:04 PM EDT Height 170.2 cm (5' 7 ) 01/31/2025 2:04 PM EDT Body Mass Index 40.57 01/31/2025 2:04 PM EDT documented in this encounter Progress Notes * Ban De La Garza MD - 01/31/2025 2:30 PM EDT Images from the original note were not included. [facility] Note Cancer History: Presented 09/04 with subacute weight loss, post-prandial abdominal pain. CT with splenomegaly and an irregular solid-appearing splenic mass measuring 12 x 10 x 11 cm with suggestion of invasion into the splenic hilum and possibly the adventitia of the stomach. Splenectomy, Partial Gastrectomy and Distal Pancreatectomy 10/17/2021: Diffuse large B-cell lymphoma,non-germinal center phenotype. CHOP-R 12/04--02/03. Chief Complaint: Right sided tremor History of Present Illness: Tay Shah is a 64 y.o. male here for follow-up of DLBCL. Patient has continued difficulty with anxiety and depression but is now on Effexor. Tolerating this reasonably well aside from increased reflux and heartburn. He tried increasing his omeprazole from 20 mg to 40 mg daily but did not help and if anything seem to worsen his symptoms. He is also bothered by his right sided tremor which is increased from his right hand to now also involve his right foot. At times his feels like hisspeech may also be involved or he may be confused although she initially related this to various medication changes for his anxiety and depression. He has not noted any dyspnea or edema. No adenopathy, night sweats, fevers or weight loss. 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 Family History: He family history includes Cancer in his father and mother; No Known Problem in his brother, maternal aunt, maternal grandfather, maternal grandmother, maternal uncle, paternal aunt, paternal grandfather, paternal grandmother, paternal uncle, sister, and another family member. Allergies: Sulfa (Sulfonamide Antibiotics) Medications: Current Outpatient Medications: Effexor XR 37.5 mg 24 hr capsule, Take 1 capsule (37.5 mg total) by mouth daily with breakfast., Disp: , Rfl: propranoloL (INDERAL LA) 120 MG 24 hr capsule, Take 1 capsule (120 mg total) by mouth daily., Disp:, Rfl: tamsulosin (FLOMAX) 0.4 mg Cap 24 hr capsule, Take 1 capsule (0.4 mg total) by mouth daily., Disp: , Rfl: pantoprazole (PROTONIX) 40 MG tablet, Take 1 tablet (40 mg total) by mouth Daily (0600)., Disp: 90 tablet, Rfl: 3 Review of Systems: 10 systems reviewed and negative except as noted per HPI. Vitals Blood pressure (!) 169/90, pulse 74, temperature 98 ??F (36.7 ??C), temperature source Temporal Artery, resp. rate 18, height 1.702 m (5' 7 ), weight 117.5 kg (259 lb), SpO2 95%. Physical Exam Vitals and nursing note reviewed. Constitutional: General: He is not in acute distress. Appearance: Normal appearance. He is obese. He is not toxic-appearing. HENT: Head: Normocephalic and atraumatic. Nose: Nose normal. Mouth/Throat: Mouth: Mucous membranes are moist. Pharynx: Oropharynx is clear. Eyes: Extraocular Movements: Extraocular movements intact. Pupils: Pupils are equal, round, and reactive to light. Cardiovascular: Rate and Rhythm: Normal rate and regular rhythm. Heart sounds: Normal heart sounds. Pulmonary: Effort: Pulmonary effort is normal. No respiratory distress. Breath sounds: Normal breath sounds. No wheezing, rhonchi or rales. Abdominal: General: Bowel sounds are normal. There is no distension. Palpations: Abdomen is soft. Tenderness: There is no abdominal tenderness. Musculoskeletal: General: No swelling or deformity. Normal range of motion. Cervical back: Normal range of motion and neck supple. Right lower leg: No edema. Left lower leg: No edema. Lymphadenopathy: Cervical: No cervical adenopathy. Skin: General: Skin is warm and dry. Coloration: Skin is not jaundiced or pale. Findings: No rash. Neurological: General: No focal deficit present. Mental Status: He is alert and oriented to person, place, and time. Motor: Tremor present. No weakness. Comments: Resting tremor Psychiatric: Mood and Affect: Mood normal. Behavior: Behavior normal. Thought Content: Thought content normal. Judgment: Judgment normal. Results: Assessment & Plan 64 y.o. male here for follow-up of diffuse large B-cell lymphoma of the spleen. -No evidence of cancer recurrence on exam or imaging. -Persistent infiltrates bilaterally in the lungs. Although he had pneumonia preceding scan in July, current study suggests that the infiltrates may be related to pulmonary edema. He was treated with anthracycline in the past. There is also note of cardiomegaly on his CT imaging. I have ordered an echocardiogram and referred to cardiology for further evaluation. -Finally we discussed his tremor, and I referred to neurology. I did order an MRI of the brain to exclude [employer] metastasis or structural lesion as cause while awaiting neurologic consult. - So long as imaging is benign, return to clinic in 6 months or sooner for new or worsening symptoms. Will continue 6-month follow-up visits until 5 years cancer free in 2026. Signed: Electronically signed by Ban De La Garza MD 01/31/2025 2:51 PM EDT Complex condition, longitudinal care. documented in this encounter Miscellaneous Notes * Result Encounter Note - Ban De La Garza MD - 01/31/2025 2:30 PM EDT Email sent to pt via [employer], informed of recent tests results. Heart enzyme was slightly elevated. Other labs normal. Follow up with ECHO and cardiology. documented in this encounter Plan of Treatment Upcoming Encounters Date Type Department Care Team (Late st Contact Info) Description 05/03/2025 1:00 PM EDT Office Visit [facility] - [place] [place] [address] [place] [address] Ban De La Garza MD [address] [place] [address] [place] [address] Aida Rueda MD [address] [facility] [address] [place] [address] 08/17/2025 2:15 PM EST Office Visit [facility] - [address] [place] [address] Ban De La Garza MD [address] [place] [address] [place] [address] Scheduled Orders Name Type Priority Associated Diagnoses Order Schedule ECHO COMPLETE (DOPPLER / COLOR) W OR WO CONTRAST Echocardiography Routine History Of Non-Hodgkin Lymphoma Pulmonary edema GERD (gastroesophageal reflux disease) Expected: 02/01/2025, Expires: 03/03/2026 MRI BRAIN STEALTH W WO CONTRAST Imaging STAT History Of Non-Hodgkin Lymphoma Pulmonary edema GERD (gastroesophageal reflux disease) Expected: 01/31/2025, Expires: 03/03/2026 CBC with automated diff Lab Routine History Of Non-Hodgkin Lymphoma Pulmonary edema GERD (gastroesophageal reflux disease) Expected: 07/30/2025, Expires: 08/29/2025 Comprehensive metabolic panel Lab Routine History Of Non-Hodgkin Lymphoma Pulmonary edema GERD (gastroesophageal reflux disease) Expected: 07/30/2025, Expires: 08/29/2025 Lactate dehydrogenase (LDH) Lab Routine History of non-Hodgkin lymphoma Pulmonary edema GERD (gastroesophageal reflux disease) Expected: 07/30/2025, Expires: 08/29/2025 Scheduled Referrals Name Type Priority Associated Diagnoses Order Schedule Ambulatory referral to Cardiology Outpatient Referral Routine History Of Non-Hodgkin Lymphoma Pulmonary edema GERD (gastroesophageal reflux disease) Expected: 01/31/2025, Expires: 01/31/2026 Ambulatory referral to Neurology Outpatient Referral Routine History Of Non-Hodgkin Lymphoma Pulmonary edema GERD (gastroesophageal reflux disease) Expected: 01/31/2025, Expires: 01/31/2026 documented as of this encounter Procedures Procedure Name Priority Date/Time Associated Diagnosis Comments CBC W/ AUTO DIFF Routine 01/31/2025 1:56 PM EDT History of non-Hodgkin lymphoma Pulmonary edema PROBNP Routine 01/31/2025 1:56 PM EDT History of non-Hodgkin lymphoma Pulmonary edema LACTATE DEHYDROGENASE (LDH) Routine 01/31/2025 1:56 PM EDT History of non-Hodgkin lymphoma Pulmonary edema COMPREHENSIVE METABOLIC PANEL Routine 01/31/2025 1:56 PM EDT History of non-Hodgkin lymphoma Pulmonary edema documented in this encounter Results * (ABNORMAL) PROBNP (01/31/2025 1:56 PM EDT) ProBNP (pg/mL) 219(H) 0 - 125 pg/mL 01/31/2025 3:05 PM EDT [facility] Blood Venipuncture / Unknown 01/31/2025 1:56 PM EDT 01/31/2025 1:59 PM EDT Ban De La Garza MD LAB BLOOD ORDERABLES Final Res ult Performing Organization Address [facility]/ZIP Co de Phone Number [facility] [address] [phone] * Lactate dehydrogenase (LDH) (01/31/2025 1:56 PM EDT) Pathologist [facility] LDH 212 87 - 241 U/L 01/31/2025 3:05 PM EDT [facility] Blood Venipuncture / Unknown 01/31/2025 1:56 PM EDT 01/31/2025 1:59 PM EDT us Ban De La Garza MD LAB BLOOD ORDERABLES Final Res ult Performing Organization Address [facility]/ZIP Co de Phone Number [facility] [address] [phone] * (ABNORMAL) Comprehensive metabolic panel (01/31/2025 1:56 PM EDT) Pathologist [facility] Sodium 137 136 - 146 meq/L 01/31/2025 3:05 PM EDT [facility] Potassium 4.3 3.5 - 5.1 meq/L 01/31/2025 3:05 PM EDT [facility] Chloride 106 102 - 112 meq/L 01/31/2025 3:05 PM [facility] CO2 24 21 - 32 meq/L 01/31/2025 3:05 PM [facility] Calcium 9.2 8.5 - 10.1 mg/dL 01/31/2025 3:05 PM [facility] Glucose 110(H) 74 - 106 mg/dL 01/31/2025 3:05 PM [facility] BUN 12 7 - 22 mg/dL 01/31/2025 3:05 PM [facility] Creatinine 0.95 0.70 - 1.30 mg/dL 01/31/2025 3:05 PM [facility] BUN/Creatinine 13 8 - 20 01/31/2025 3:05 PM [facility] Albumin 3.9 3.4 - 5.0 g/dL 01/31/2025 3:05 PM [facility] Alkaline Phosphatase 86 27 - 136 U/L 01/31/2025 3:05 PM [facility] ALT 26 12 - 78 U/L 01/31/2025 3:05 PM [facility] AST 19 5 - 37 U/L 01/31/2025 3:05 PM [facility] Total Bilirubin 0.9 0.2 - 1.3 mg/dL 01/31/2025 3:05 PM [facility] Protein, Total 7.8 6.4 - 8.2 gm/dL 01/31/2025 3:05 PM [facility] Anion Gap 11 9 - 20 01/31/2025 3:05 PM [facility] A/G Ratio 1.0(L) 1.1 - 2.5 01/31/2025 3:05 PM [facility] Globulin 3.9 1.5 - 4.5 g/dL 01/31/2025 3:05 PM [facility] Osmolality Calc 274.2 mOsm/kg 3:05 PM [facility] eGFR (mL/min/1.73m2) >60 >=60 mL/min/1.7 3m2 01/31/2025 3:05 PM [facility] Comment:ESTIMATED GFR IS NOT ACCURATE CREATININE CLEARANCE IN PREDICTING GLOMERULAR FILTRATION RATE. ESTIMATED GFR IS NOT APPLICABLE FOR DIALYSIS PATIENTS. Blood Venipuncture / Unknown 01/31/2025 1:56 PM EDT 01/31/2025 1:59 PM EDT us Ban De La Garza MD LAB BLOOD ORDERABLES Final Res ult [facility] [address] [place] [id number] [phone] * (ABNORMAL) CBC with automated diff (01/31/2025 1:56 PM EDT) WBC 9.0 4.5 - 11.0 K/ L 01/31/2025 2:04 PM EDT [facility] RBC 5.07 4.50 - 5.50 M/ L 01/31/2025 2:04 PM EDT [facility] Hemoglobin 16.0 13.5 - 17.5 GM/DL 01/31/2025 2:04 PM EDT [facility] Hematocrit 47.0 41.0 - 53.0 % 01/31/2025 2:04 PM EDT [facility] MCV 93 80 - 100 fL 01/31/2025 2:04 PM EDT [facility] MCH 31.6 26.0 - 34.0 pg 01/31/2025 2:04 PM EDT [facility] MCHC 34.0 31.0 - 37.0 GM/DL 01/31/2025 2:04 PM EDT [facility] RDW 12.9 12.0 - 16.8 % 01/31/2025 2:04 PM EDT [facility] Platelets 325 140 - 440 K/CU MM 01/31/2025 2:04 PM EDT [facility] MPV 9.9 6.7 - 10.8 fL 01/31/2025 2:04 PM EDT [facility] % Neutros 60 45 - 80 % 01/31/2025 2:04 PM EDT [facility] % Lymphs 24 15 - 45 % 01/31/2025 2:04 PM EDT [facility] % Monos 15(H) 0 - 10 % 01/31/2025 2:04 PM EDT [facility] % Eos 1 0 - 5 % 01/31/2025 2:04 PM EDT [facility] % Baso 0 0 - 3 % 01/31/2025 2:04 PM EDT [facility] # Neutros 5.36 2.00 - 8.80 K/ L 01/31/2025 2:04 PM EDT [facility] # Lymphs 2.16 0.70 - 5.50 K/ L 01/31/2025 2:04 PM EDT [facility] # Monos 1.35 0.00 - 1.70 K/ L 01/31/2025 2:04 PM EDT [facility] # Eos 0.07 0.00 - 0.80 K/ L 01/31/2025 2:04 PM EDT [facility] # Baso 0.04 0.00 - 0.20 K/ L 01/31/2025 2:04 PM EDT [facility] Blood Venipuncture / Unknown 01/31/2025 1:56 PM EDT 01/31/2025 1:59 PM EDT Narrative [facility] - 01/31/2025 2:04 PM EDT When CBC w/ Auto Diff is ordered the lab will add a Manual Differential as a quality check at no additional charge if: Lymphocytes greater than seventy five percent with normal or increased WBC Monocytes greater than Fifteen percent Basophil greater than four percent Bands >10% or several immature myeloids are seen on scan Blast? Flag noted Atypical Lymph flag noted us Ban De La Garza MD LAB BLOOD ORDERABLES Final Res ult [facility] [place], [place] [address] [phone] documented in this encounter Visit Diagnoses Diagnosis History of non-Hodgkin lymphoma- Primary Pulmonary edema Pulmonary congestion and hypostasis GERD (gastroesophageal reflux disease) Esophageal reflux Tremor Abnormal involuntary movements documented in this encounter Care Teams Shrimp Header Relationship Specialty Start [place] [address] [place], [place] [id number] Hematology and Oncology 01/13/24 documented as of this encounter
--- OUTSIDE RECORDS SUMMARY | 2025-03-24 13:52 | XMS_ITS | Encounter Summary ---
Author Organization [employer] ([place], [place], [place], [place]) Address [address] [place] [address] Care Team Providers Care Associate Software Application Engineer Name Role Phone Case, Pat Saravia RN Unavailable Unavailable Ban De La Garza MD Unavailable [phone] Encounter Details Date Type Department Care Team (Late st Contact Info) Description 02/21/2022 Transcribed Document [facility] Family Medicine [address] [place] [address] ProviderCollins MD [address] [place] [address] Social History Tobacco Use Types Packs/Day Years Used Date Smoking Tobacco: Never Assessed Family and Community Support Answer Jeffry e Recorded Help with Day to Day Activities Not on file 10/03/2023 Feeling Lonely or Isolated Not on file 10/03 Educational Attainment Answer Date Nik rded Speak language other than Angolan at home Not on file 10/03/2023 Want [...] PM CDT Sexual Orientation Not on file COVID-19 Exposure Response Date Recorded In the last 10 days, have yo u been in contact with someone who was confirmed or suspected to have Coronavirus/COVID-19? No / Unsure 07/15/2023 2:38 PM EDT documented as of this encounter Miscellaneous Notes [...] no pain. Food and drink offered. KEVIN FOFANA RN - 02/21/2022 12:07 EDT Electronically signed by Yovanny [facility] Conversion Mandarin Speaking Nanny Cerner at 12/31/2022 1:31 PM CDT documented in this encounter Plan of Treatment Upcoming Encounters Date Type Department Care Team (Late st Contact Info) Description 05/03/2025 1:00 PM EDT Office Visit [facility] Neurology - [address] [place] [address] Ban De La Garza MD [facility] [address] [place] [address] Aida Rueda MD [address] [place] [address] 08/17/2025 2:15 PM EST Office Visit [facility] - [address] [place] [address] Ban De La Garza MD [facility] [address] [place] [address] documented as of this encounter Visit Diagnoses Not on filedocumented in this encounter Care Teams Associate Software Application Engineer Relationship Specialty Start Date End Date Case, Pat Saravia RN Nurse Navigator 01/07/23 01/27/24 Ban De La Garza MD [address] [place] [address] Hematology and Oncology 01/13/24 documented as of this encounter
--- OUTSIDE RECORDS SUMMARY | 2025-03-24 13:52 | XMS_ITS | Encounter Summary ---
Author Organization [employer] ([place], [place], [place], [place]) Address [address] [place] [address] Care Team Providers Care Hydrogenation Operator Name Role Phone Case, Pat Saravia RN Unavailable Unavailable Ban De La Garza MD Unavailable [phone] Encounter Details Date Type Department Care Team (Late st Contact Info) Description 10/30/2021 Transcribed Document [facility] [place] [address] [place] [address] ProviderCollins MD [address] [place] [address] Social History Tobacco Use Types Packs/Day Years Used Date Smoking Tobacco: Never Assessed Family and Community Support Answer Jeffry e Recorded Help with Day to Day Activities Not on file 10/03/2023 Feeling Lonely or Isolated Not on file 10/03 Educational Attainment Answer Date Nik rded Speak language other than Syrian at home Not on file 10/03/2023 Want [...] Collins Montano MD - 10/30/2021 10:09 AM PLUMBING HARDWARE ASSEMBLER Nursing Discharge Summary Entered On: 10/30/2021 10:10 [...] - 10/30/2021 10:09 EST Electronically signed by Yovanny [facility] Conversion Police Pilot Cerner at 12/31/2022 1:34 PM CDT documented in this encounter Plan of Treatment Upcoming Encounters Date Type Department Care Team (Late st Contact Info) Description 05/03/2025 1:00 PM EDT Office Visit [facility] Neurology - [place] [place] [id number] [place] [address] Ban De La Garza MD [facility] [address] [place] [place] [address] Aida Rueda MD [address] [place] [address] 08/17/2025 2:15 PM EST Office Visit [facility] - [place] [address] [place] [address] Ban De La Garza MD [address] [facility] [address] [place] [address] documented as of this encounter Visit Diagnoses Not on filedocumented in this encounter Care Teams Hydrogenation Operator Relationship Specialty Start Date End Date Case, Pat Saravia, RN Nurse Navigator 01/07/23 01/27/24 Ban De La Garza MD [address] [facility] [address] [place] [address] Hematology and Oncology 01/13/24 documented as of this encounter
--- OUTSIDE RECORDS SUMMARY | 2025-03-24 13:52 | XMS_ITS | Encounter Summary ---
Author Organization [employer] ([place], [place], [place], [place]) Address [address] [place] [address] Care Team Providers Care Stepdown Nurse Name Role Phone Ban De La Garza MD Unavailable [phone] Reason for Visit * Reason Onset Date Comments Advice Only 02/02/2025 Encounter Details Date Type Department Care Team (Late st Contact Info) Description 02/02/2025 Telephone [facility] - [address] [place] [address] Ban De La Garza MD [address] [facility] [address] [place] [address] Advice Only Social History Tobacco Use Types [...] Date Nik rded Speak language other than Belizean at home Not on file 10/03/2023 Want [...] 02/03/2025 1:25 PM EDT Left message with [facility] scheduling attn Esther informing her that I was faxing over the new order for brain MRI. Faxed order to [phone]. * Telephone Encounter - Reanna Thomas PA-C - 02/02/2025 4:39 PM EDT I've reordered it as regular brain. * Telephone Encounter - Reanna Thomas PA-C - 02/02/2025 4:14 PM EDT I assume you do want the MRI with stealth? * Telephone Encounter - Negro Ellis RN - 02/02/2025 4:07 PM EDT Esther, with [facility] scheduling called to ask about the MRI [...] Description 05/03/2025 1:00 PM EDT Office Visit [facility] Neurology - [place] [address] [facility] [address] [place] [address] Ban De La Garza MD [address] [place] [address] Aida Rueda MD [address] [place] [address] 08/17/2025 2:15 PM EST Office Visit [facility] - [place] [address] [place] [address] Ban De La Garza MD [facility] [address] [place] [id number] documented as of this encounter Visit Diagnoses Not on filedocumented in this encounter Care Teams Stepdown Nurse Relationship Specialty Start Date End Date Ban De La Garza MD [address] [place] [address] Hematology and Oncology 01/13/24 documented as of this encounter
--- OUTSIDE RECORDS SUMMARY | 2025-03-24 13:52 | XMS_ITS | Referral Summary ---
Author Organization [employer] ([place], [place], [place], [place]) Address [address] [place] [address] Care Team Providers Care Statement Clerks Manager Name Role Phone Ban De La Garza MD Unavailable [phone] Encounters Date Type Department Care Team Description 02/22/2025 Orders Only [facility] - [place] [address] [place] [address] Ban De La Garza MD 02/02/2025 Orders Only [facility] - [place] [address] [place] [address] Reanna Thomas PA-C Tremor (Primary Dx) 02/02/2025 Telephone [facility] - [place] [address] [place] [address] Ban De La Garza MD Advice Only 01/31/2025 Orders Only [facility] - [place] [address] [place] [address] Ban De La Garza MD 01/31/2025 2:30 PM EDT Office Visit [facility] - [place] [address] [place] [address] Ban De La Garza MD History of non-Hodgkin lymphoma (Primary Dx); Pulmonary edema; GERD (gastroesophageal reflux disease); Tremor 01/20/2025 Orders Only [facility] - [place] [address] [place] [address] Provider, MD Collins from Last [...] Date Nik rded Speak language other than Croatian at home Not on file 10/03/2023 Want [...] Description 05/03/2025 1:00 PM EDT Office Visit [facility]rology - [facility] [address] [place] [address] Ban De La Garza MD [facility] [address] [place] [address] Aida Rueda MD [address] [place] [address] 08/17/2025 2:15 PM EST Office Visit [facility] - [place] [address] [place] [address] Ban De La Garza MD [facility] [place] [address] Procedures Procedure Name Priority Date/Time Associated Diagnosis [...] with automated diff (01/31/2025 1:56 PM EDT) [facility] WBC 9.0 4.5 - 11.0 K/ [...] Res ult ONCOLOGY LABORATORY - [place] [address] [place] [address] [phone] * (ABNORMAL) PROBNP (01/31/2025 1:56 PM EDT) [facility] ProBNP (pg/mL) 219(H) 0 - 125 pg/mL 01/31/2025 3:05 PM EDT [facility] Blood Venipuncture / Unknown 01/31/2025 1:56 PM EDT 01/31/2025 1:59 PM EDT Ban De La Garza MD LAB BLOOD ORDERABLES Final Res ult Performing Organization Address [facility]/ZIP Co de Phone Number [facility] [address] [phone] * Lactate dehydrogenase (LDH) (01/31/2025 1:56 PM EDT) LDH 212 87 - 241 U/L 01/31/2025 3:05 PM EDT [facility] Blood Venipuncture / Unknown 01/31/2025 1:56 PM EDT 01/31/2025 1:59 PM EDT Ban De La Garza MD LAB BLOOD ORDERABLES Final Res ult Performing Organization Address [facility] Co de Phone Number [facility] [address] [phone] * (ABNORMAL) Comprehensive metabolic panel (01/31/2025 1:56 PM EDT) Sodium 137 136 - 146 meq/L 01/31/2025 3:05 PM EDT [facility] Potassium 4.3 3.5 - 5.1 meq/L 01/31/2025 3:05 PM EDT [facility] Chloride 106 102 - 112 meq/L 01/31/2025 3:05 PM EDT [facility] CO2 24 21 - 32 meq/L 01/31/2025 3:05 PM EDT [facility] Calcium 9.2 8.5 - 10.1 mg/dL 01/31/2025 3:05 PM EDT [facility] Glucose 110(H) 74 - 106 mg/dL 01/31/2025 3:05 PM EDT [facility] BUN 12 7 - 22 mg/dL 01/31/2025 3:05 PM T [facility] Creatinine 0.95 0.70 - 1.30 mg/dL 01/31/2025 3:05 PM [facility] BUN/Creatinine 13 8 - 20 01/31/2025 3:05 PM [facility] Albumin 3.9 3.4 - 5.0 g/dL 01/31/2025 3:05 PM [facility] Alkaline Phosphatase 86 27 - 136 U/L 01/31/2025 3:05 PM T [facility] ALT 26 12 - 78 U/L 01/31/2025 3:05 PM [facility] AST 19 5 - 37 U/L 01/31/2025 3:05 PM [facility] Total Bilirubin 0.9 0.2 - 1.3 mg/dL 01/31/2025 3:05 PM [facility] Protein, Total 7.8 6.4 - 8.2 gm/dL 01/31/2025 3:05 PM [facility] Anion Gap 11 9 - 20 01/31/2025 3:05 PM [facility] A/G Ratio 1.0(L) 1.1 - 2.5 01/31/2025 3:05 PM [facility] Globulin 3.9 1.5 - 4.5 g/dL 01/31/2025 3:05 PM [facility] Osmolality Calc 274.2 mOsm/kg 3:05 PM [facility] eGFR (mL/min/1.73m2) >60 >=60 mL/min/1.7 3m2 01/31/2025 3:05 PM [facility] Comment:ESTIMATED GFR IS NOT ACCURATE CREATININE CLEARANCE IN PREDICTING GLOMERULAR FILTRATION RATE. ESTIMATED GFR IS NOT APPLICABLE FOR DIALYSIS PATIENTS. Blood Venipuncture / Unknown 01/31/2025 1:56 PM EDT 01/31/2025 1:59 PM EDT us Ban De La Garza MD LAB BLOOD ORDERABLES Final Res ult Performing Organization Address City/[facility]/ZIP Co de Phone Number [facility] [address] [place] [address], [facility] [phone] * EXTERNAL IMAGING - CT (01/20/2025 2:20 PM EDT) Anatomical Region Laterality Modality Other [facility] Provider MD HEALTH MAINTENANCE Final Result * Hepatitis panel, [...] 9:58 AM EST 10/24/2021 3:36 PM EST [facility] Historical Provider LAB BLOOD ORDERABLES Fi nal Result [facility] [address] [place] [address], [facility] [phone] from Last 3 Months or Most Recently Relevant to Health Maintenance Insurance BLUE CROSS/BLUE SHIELD Care Teams Statement Clerks Manager Relationship Specialty Start Date End Date Ban De La Garza MD [address] [facility] [address] [place] [address] Hematology and Oncology 01/13/24
--- OUTSIDE RECORDS SUMMARY | 2025-03-24 13:52 | XMS_ITS | Encounter Summary ---
Author Organization [employer] ([place], [place], [place], [place]) Address [address] [place] [address] Care Team Providers Care Retail Sales Manager Name Role Phone Case, Pat Saravia RN Unavailable Unavailable Ban De La Garza MD Unavailable [phone] Encounter Details Date Type Department Care Team (Late st Contact Info) Description 02/21/2022 Transcribed Document [facility] [place] Family Medicine [address] [place] [address] ProviderCollins MD [address] [place] [address] Social History Tobacco Use Types Packs/Day Years Used Date Smoking Tobacco: Never Assessed Family and Community Support Answer Jeffry e Recorded Help with Day to Day Activities Not on file 10/03/2023 Feeling Lonely or Isolated Not on file 10/03 Educational Attainment Answer Date Nik rded Speak language other than Uruguayan at home Not on file 10/03/2023 Want [...] Conversion Note - Collins ProviderMD - 02/21/2022 12:34 PM CDT Nursing Discharge Summary Entered On: 02/21/2022 12:35 EDT Performed On: 02/21/2022 12:34 EDT by KEVIN FOFANA, aircraft servicer Documentation Discharge Date/Time : 02/21/2022 12:45 EDT [...] KEVIN FOFANA RN - 02/21/2022 12:34 EDT documented in this encounter Plan of Treatment Upcoming Encounters Date Type Department Care Team (Late st Contact Info) Description 05/03/2025 1:00 PM EDT Office Visit [facility] Neurology - [address] [place] [address] [place] [address] Ban De La Garza MD [address] [place] [address] [place] [address] Aida Rueda MD [address] [place] [address] 08/17/2025 2:15 PM EST Office Visit [facility] [place] [address] Ban De La Garza MD [address] [facility] [address] [place] [address] documented as of this encounter Visit Diagnoses Not on filedocumented in this encounter Care Teams Retail Sales Manager Relationship Specialty Start Date End Date Case, Pat Saravia, RN Nurse Navigator 01/07/23 01/27/24 Ban De La Garza MD [address] [facility] [address] [place] [address] Hematology and Oncology 01/13/24 documented as of this encounter
--- OUTSIDE RECORDS SUMMARY | 2025-03-24 13:52 | XMS_ITS | Encounter Summary ---
Author Organization [employer] ([place], [place], [place], [place]) Address [address] [place] [address] Care Team Providers Care Plug Paster Name Role Phone Case, Pat Saravia RN Unavailable Unavailable Ban De La Garza MD Unavailable [phone] Encounter Details Date Type Department Care Team (Late st Contact Info) Description 02/21/2022 Transcribed Document [facility] [place] [address] [place] [address] ProviderCollins MD [address] [place] [address] Social History Tobacco Use Types Packs/Day Years Used Date Smoking Tobacco: Never Assessed Family and Community Support Answer Jeffry e Recorded Help with Day to Day Activities Not on file 10/03/2023 Feeling Lonely or Isolated Not on file 10/03 Educational Attainment Answer Date Nki rded Speak language other than Russian at home Not on file 10/03/2023 Want [...] Cerner Conversion Note - Historical ProviderMD - 02/21/2022 11:23 AM CDT Patient: HEYDI SIMS Age: 61 years Sex: Male : 1960 Associated Diagnoses: None Author: ARETHA RICHEY MD-RAD Pre-OP/Procedure Diagnosis: Large B cell lymphoma Indication: Request for catheter removal Procedure Performed: Port removal Procedural MD: _Ct Hotel Houseman: Sedation: None Findings: Successful removal of chest port Complications: None EBL: Minimal Specimen(s) Removed: _ None Full report to follow. Electronically signed by Yovanny [facility] Conversion Glove Machine Operator Cerner at 12/31/2022 1:15 PM CDT documented in this encounter Plan of Treatment Upcoming Encounters Date Type Department Care Team (Late st Contact Info) Description 05/03/2025 1:00 PM EDT Office Visit [facility] Neurology - [address] [place] [address] [place] [address] Ban De La Garza MD [address] [place] [address] [place] [address] Aida Rueda MD [address] [place] [address] 08/17/2025 2:15 PM EST Office Visit [facility] - [place] [address] [place] [address] Ban De La Garza MD [address] [place] [address] [place] [address] documented as of this encounter Visit Diagnoses Not on filedocumented in this encounter Care Teams Plug Paster Relationship Specialty Start Date End Date Case, Pat Saravia, RN Nurse Navigator 01/07/23 01/27/24 Ban De La Garza MD [address] [facility] [address] [place] [id number] Hematology and Oncology 01/13/24 documented as of this encounter
--- OUTSIDE RECORDS SUMMARY | 2025-03-24 13:52 | XMS_ITS | Encounter Summary ---
Author Organization [employer] ([place], [place], [place], [place]) Address [address] [place] [address] Care Team Providers Care Die Forger Name Role Phone Case, Pat Saravia RN Unavailable Unavailable Ban De La Garza MD Unavailable [phone] Encounter Details Date Type Department Care Team (Late st Contact Info) Description 02/21/2022 Transcribed Document [facility] [place] [address] [place] [address] ProviderCollins MD [address] [place] [address] Social History Tobacco Use Types Packs/Day Years Used Date Smoking Tobacco: Never Assessed Family and Community Support Answer Jeffry e Recorded Help with Day to Day Activities Not on file 10/03/2023 Feeling Lonely or Isolated Not on file 10/03 Educational Attainment Answer Date Nik rded Speak language other than Solomon Islander at home Not on file 10/03/2023 [...] Notes * Cerner Conversion Note - Historical Provider, - 02/21/2022 9:47 AM CDT Pre Procedure Adult Entered On: 02/21/2022 9:54 EDT Performed On: 02/21/2022 9:47 EDT by KEVIN FOFANA RN Height and Weight, Clinical Dosing Height Source : Stated Height Entry Format : [place] Height, Feet : 5 ft(Converted to: 152 cm, 60 Inch) Height, Inches : 7 Inch(Converted to: 0 ft 7 Inch, 17.78 cm) Clinical Height : 170.18 cm Weight Source : Standing scale Weight Entry Format : [place] Clinical Dosing Weight : 110 kg Weight, Pounds : 242 lb Body Surface Area (BSA) : 2.19 m2 Body Mass Index : 38 kg/m2 (HI) [place] Body Weight : 65 kg KEVIN FOFANA [...] (Last Updated: 10/30/2021 08:29:20 EST by NNEKA ZHANG, GINNY) Alcohol: Alcohol Use History No. (Last Updated: 10/30/2021 08:29:24 EST by NNEKA ZHANG, GINNY) Substance Abuse: Drug Use Hx: No. (Last Updated: 10/30/2021 08:29:28 EST by NNEKA ZHANG, GINNY) Infectious Disease History Does patient have symptoms [...] KEVIN FOFANA RN - 02/21/2022 9:47 EDT [place] Suicide Severity Rating Scale (C-SSRS) CSSRS Past [...] Spouse Legal Guardian : No Support Person/Patient Container Crane Operator : Yes Want Family/Rep/Phys Notified of Admit : No Emergency Contact #1 : Shayla Emergency Contact #1 Emergency Contact #1 Relationship : spouse Emergency Contact #2 : n/a Emergency Contact #2 Phone Number : n/a Emergency Contact #2 Relationship : n/a Chief Complaint : port removal Information Obtained From : Patient, Spouse Primary Language : Solomon Islander Preferred Communication Mode : Verbal Communication Barrier : None Catering Cook Needed : No KEVIN FOFANA RN - [...] Scale Risk Level : 0-24 Low Risk [place] Fall Interventions : Adequate lighting, Assistive devices [...] Description 05/03/2025 1:00 PM EDT Office Visit [facility] Neurology - [place] [address] [place] [address] Ban De La Garza MD [facility] [address] [place] [address] [place] [address] Aida Rueda MD [address] [place] [address] 08/17/2025 2:15 PM EST Office Visit [facility] - [place] [address] [place] [address] Ban De La Garza MD [facility] [address] [place] [address] [place] [address] documented as of this encounter Visit Diagnoses Not on filedocumented in this encounter Care Teams Die Forger Relationship Specialty Start Date End Date Case, Pat Saravia RN Nurse Navigator 01/07/23 01/27/24 Ban De La Garza MD [address] [place] [address] Hematology and Oncology 01/13/24 documented as of this encounter
--- OUTSIDE RECORDS SUMMARY | 2025-03-24 13:52 | XMS_ITS | Encounter Summary ---
Author Organization [employer] [facility] [employer] ([place], [place], [place], [place]) Address [address] [place] [address] Care Team Providers Care Buttonhole Maker Name Role Phone Case, Pat Saravia RN Unavailable Unavailable Ban De La Garza MD Unavailable [phone] Encounter Details Date Type Department Care Team (Late st Contact Info) Description 10/30/2021 Transcribed Document [facility] [place] Family Medicine [address] [place] [address] ProviderCollins MD [address] [place] [address] Social History Tobacco Use Types Packs/Day Years Used Date Smoking Tobacco: Never Assessed Family and Community Support Answer Jeffry e Recorded Help with Day to Day Activities Not on file 10/03/2023 Feeling Lonely or Isolated Not on file 10/03 Educational Attainment Answer Date Nki rded Speak language other than Stateless at home Not on file 10/03/2023 Want [...] as of this encounter Miscellaneous Notes * Aram Conversion Note - Historical Provider, MD - 10/30/2021 10:07 AM PARTS FINISHER Patient: HEYDI SIMS Age: 61 years Sex: Male : 1960 Associated Diagnoses: None Author: KAMINI ZHOU PA-C Postoperative Information The patient presents for a fluoroscopically guided procedure requiring sedation. The patient is requiring jail IV access. Review of Systems Constitutional: Negative. [...] At risk for sleep apnea / IMO [id number] / Confirmed Diffuse large B-cell lymphoma of spleen / SNOMED CT 151003786 / Confirmed BPH (benign prostatic hyperplasia) / SNOMED CT 625579513 / Confirmed GERD - Gastro-esophageal reflux disease / SNOMED CT 4233003988 / Confirmed Hypertension / SNOMED CT 41699915 / Confirmed, Active Problems (5) At risk [...] EST Height Source Stated Height Entry Format [place] Height/Length, ITALIAN (ft) 5 ft Height/Length ITALIAN 7 Inch CLINICALHEIGHT 170.18 cm [place] Body Weight 65 kg Weight Source Standing scale Weight Entry Format [place] Weight Stateless lb 207 lb CLINICALWEIGHT 94.09 kg Body [...] Description 05/03/2025 1:00 PM EDT Office Visit [facility] Neurology - [facility] [address] [place] [address] Ban De La Garza MD [facility] [address] [place] [address] [place] [address] Aida Rueda MD [facility] [place] [address] 08/17/2025 2:15 PM EST Office Visit [facility] - [facility] [address] [place] [address] Ban De La Garza MD [facility] [address] [place] [address] documented as of this encounter Visit Diagnoses Not on filedocumented in this encounter Care Teams Buttonhole Maker Relationship Specialty Start Date End Date Case, Pat Saravia, RN Nurse Navigator 01/07/23 01/27/24 Ban De La Garza MD [address] [facility] [address] [place] [address] Hematology and Oncology 01/13/24 documented as of this encounter
--- OUTSIDE RECORDS SUMMARY | 2025-03-24 13:52 | XMS_ITS | Encounter Summary ---
Author Organization [employer] ([place], [place], [place], [place]) Address [address] [place] [address] Care Team Providers Care National Flatbed Truck Driver Name Role Phone Ban De La Garza MD Unavailable [phone] Encounter Details Date Type Department Care Team (Late st Contact Info) Description 01/31/2025 Orders Only [facility] - [place] [address] [facility] [address] [place] [address] Ban De La Garza MD [address] [facility] [address] [place] [address] Social History Tobacco Use Types Packs/Day Years [...] rded Speak language other than Citizen [place] at home Not on file 10/03/2023 Want [...] Description 05/03/2025 1:00 PM EDT Office Visit [facility] Neurology - [place] [address] [place] [address] Ban De La Garza MD [facility] [address] [place] [address] [place] [address] Aida Rueda MD [address] [place], [place] [address] 08/17/2025 2:15 PM EST Office Visit [facility] - [place] [address] [place] [address] Ban De La Garza MD [address] [place] [address] documented as of this encounter Visit Diagnoses Not on filedocumented in this encounter Care Teams National Flatbed Truck Driver Relationship Specialty Start Date End Date Ban De La Garza MD [address] [place] [address] Hematology and Oncology 01/13/24 documented as of this encounter
--- OUTSIDE RECORDS SUMMARY | 2025-03-24 13:52 | XMS_ITS | Encounter Summary ---
Author Organization [employer] ([place], [place], [place], [place]) Address [address] [place] [address] Care Team Providers Care Caddy/Caddie Supervisor Name Role Phone Ban De La Garza MD Unavailable [phone] Reason for Referral * MRI (Routine) - Pending Review Specialty Diagnoses / Procedures Referred By Mitesh toth Referred To Contact Radiology Diagnoses Tremor Procedures MR Brain Without & With IV Contrast Reanna Thomas PA-C [address] [place] [address] Phone: tel: fax: Referral ID Status Reason Start Date Expiration Date V isits Requested Visits Authorized [id number] Pending Review 02/02/2025 07/14/2025 1 1 Encounter Details Date Type Department Care Team (Late st Contact Info) Description 02/02/2025 Orders Only [facility] - [address] [place] [address] Reanna Thomas PA-C [address] [place] [address] Tremor (Primary Dx) Social History Tobacco Use [...] Date Nik rded Speak language other than Turkish at home Not on file 10/03/2023 Want [...] Description 05/03/2025 1:00 PM EDT Office Visit [facility] Neurology - [address] [place] [phone] Ban De La Garza MD [facility] [address] [place] [address] Aida Rueda MD [address] [place] [address] 08/17/2025 2:15 PM EST Office Visit [facility] - [place] [place] [phone] Ban De La Garza MD [facility] [place] [address] Scheduled Orders Name Type Priority Associated Diagnoses Orde r Schedule MR Brain Without & With IV Contrast Imaging Routine Tremor Expected: 02/02/2025, Expires: 03/05/2026 documented as of this encounter Visit Diagnoses Diagnosis Tremor- Primary Abnormal involuntary movements documented in this encounter Care Teams Caddy/Caddie Supervisor Relationship Specialty Start Date End Date Ban De La Garza MD [address] [place] [address] Hematology and Oncology 01/13/24 documented as of this encounter
--- OUTSIDE RECORDS SUMMARY | 2025-03-24 13:52 | XMS_ITS | Encounter Summary ---
Author Organization [employer] ([place], [place], [place], [place]) Address [address] [place] [address] Care Team Providers Care Vehicle Sales Professional Name Role Phone Case, Pat Saravia RN Unavailable Unavailable Ban De La Garza MD Unavailable [phone] Encounter Details Date Type Department Care Team (Late st Contact Info) Description 02/21/2022 Transcribed Document [facility] Family Medicine [address] [place] [address] ProviderCollins MD [address] [place] [address] Social History Tobacco Use Types Packs/Day Years Used Date Smoking Tobacco: Never Assessed Family and Community Support Answer Jeffry e Recorded Help with Day to Day Activities Not on file 10/03/2023 Feeling Lonely or Isolated Not on file 10/03 Educational Attainment Answer Date Nik rded Speak language other than Dominican at home Not on file 10/03/2023 Want [...] * Aram Conversion Note - Historical Provider, - 02/21/2022 10:40 AM CDT Patient: HEYDI [...] At risk for sleep apnea / IMO [id number] / Confirmed Hypertension / SNOMED CT 60627470 / Confirmed Diffuse large B-cell lymphoma of spleen / SNOMED CT 538636876 / Confirmed GERD - Gastro-esophageal reflux disease / SNOMED CT 4749226688 / Confirmed BPH (benign prostatic hyperplasia) / SNOMED CT 128497866 / Confirmed, Active Problems (5) At risk [...] EDT Height Source Stated Height Entry Format [place] Height/Length, AZERBAIJANI (ft) 5 ft Height/Length AZERBAIJANI 7 Inch CLINICALHEIGHT 170.18 cm [place] Body Weight 65 kg Weight Source Standing scale Weight Entry Format [place] Weight Dominican lb 242 lb CLINICALWEIGHT 110 kg Body [...] Description 05/03/2025 1:00 PM EDT Office Visit [facility] Neurology - Radha [address] [place] [address] Ban De La Garza MD [address] [place] [address] Aida Rueda MD [address] [place] [address] 08/17/2025 2:15 PM EST Office Visit [facility] - [address] [place] [address] Ban De La Garza MD [address] [place], [place] [address] documented as of this encounter Visit Diagnoses Not on filedocumented in this encounter Care Teams Vehicle Sales Professional Relationship Specialty Start Date End Date Case, Pat Saravia, RN Nurse Navigator 01/07/23 01/27/24 Ban De La Garza MD [address] [place] [address] Hematology and Oncology 01/13/24 documented as of this encounter
--- OUTSIDE RECORDS SUMMARY | 2025-03-24 13:52 | XMS_ITS | Encounter Summary ---
Author Organization [employer] ([place], [place], [place], [place]) Address [address] [place] [address] Care Team Providers Care Excavating Supervisor Name Role Phone Case, Pat Saravia RN Unavailable Unavailable Ivanna De La Garza MD Unavailable [phone] Encounter Details Date Type Department Care Team (Late st Contact Info) Description 02/21/2022 Transcribed Document [facility] Family Medicine [address] [place] [address] ProviderCollins MD [address] [place] [address] Social History Tobacco Use Types Packs/Day Years Used Date Smoking Tobacco: Never Assessed Family and Community Support Answer Jeffry e Recorded Help with Day to Day Activities Not on file 10/03/2023 Feeling Lonely or Isolated Not on file 10/03 Educational Attainment Answer Date Nik rded Speak language other than Estonian at home Not on file 10/03/2023 Want [...] Conversion Note - Historical Provider, - 02/21/2022 12:36 PM CDT [facility] [address] [place] [place] [address] HEYDI SIMS :1960 Visit Time:02/21/2022 Your Visit Summary Your Care Team Admitting Physician - IVANNA DE LA GARZA MD-ONC Attending Physician - IVANNA DE LA GARZA MD-ONC Primary Care Physician - RADHA FIORE (REF), MARICRUZINT Referring Physician - IVANNA DE LA GARZA [...] 3 days Comments Follow-up as instructed Where: [facility] [address] [place] [address]- Medications What How Much When Instructions Next [...] cannot use soap and water, use hand assistant branch operations manager. ? Change the bandage as often as [...] scar, or cover it up. ??? Take erlm-cdx-ulnvifr and prescription medicines only as told by [...] provider. Document Revised: 07/28/2020 Document Reviewed: 07/28/2020 ElseSlidebean Patient Education ?? 2020 [employer]. Implanted Port Removal Home Guide An implanted [...] implanted port has two main parts: ??? [place]. The reservoir is the part where a [...] water are not available, use alcohol-based hand assistant branch operations manager. ? Change your dressing as told by [...] provider. Document Revised: 01/15/2021 Document Reviewed: 01/15/2021 ElseSlidebean Patient Education ?? 2020 [employer] Inc. Moderate Conscious Sedation, Adult, Care After [...] eating solid foods. General instructions ??? Take pheq-fpr-sgwgtnx and prescription medicines only as told by [...] provider. Document Revised: 12/29/2020 Document Reviewed: 07/27/2020 [employer]ide[employer] Patient Education ?? 2020 [employer] Inc. Emergency Awareness and Preventative Care STROKE [...] Assistance with quitting is available by contacting 4-237-NHCV-NOW. This is a free resource providing counseling, [...] Other Results This Visit Patient Name:HEYDI SIMS I have received and understand this information and was given the opportunity to ask questions. Patient/Driver License Examiner Name: Patient/Driver License Examiner Signature: Relationship to Patient: Clinician/Hospital Driver License Examiner Signature: Date: documented in this encounter Plan of Treatment Upcoming Encounters Date Type Department Care Team (Late st Contact Info) Description 05/03/2025 1:00 PM EDT Office Visit [facility] Neurology - [address] [place] [address] [place] [address] Ivanna De La Garza MD [address] [place] [address] Aida Rueda MD [address] [place], [place] [address] 08/17/2025 2:15 PM EST Office Visit [facility] - [address] [place] [address] Ivanna De La Garza MD [facility] [address] [place] [address] documented as of this encounter Visit Diagnoses Not on filedocumented in this encounter Care Teams Excavating Supervisor Relationship Specialty Start Date End Date Case, Pat Saravia, RN Nurse Navigator 01/07/23 01/27/24 Ivanna De La Garza MD [address] [place] [phone] Hematology and Oncology 01/13/24 documented as of this encounter
--- OUTSIDE RECORDS SUMMARY | 2025-03-24 13:52 | XMS_ITS | Encounter Summary ---
Author Organization [employer] ([place], [place], [place], [place]) Address [address] [place] [address] Care Team Providers Care Blender/Braze Applicator Name Role Phone Case, Pat Saravia RN Unavailable Unavailable Ban De La Garza MD Unavailable [phone] Encounter Details Date Type Department Care Team (Late st Contact Info) Description 10/30/2021 Transcribed Document [facility] Family Medicine [address] [place] [address] ProviderCollins MD [address] [place] [address] Social History Tobacco Use Types Packs/Day Years Used Date Smoking Tobacco: Never Assessed Family and Community Support Answer Jeffry e Recorded Help with Day to Day Activities Not on file 10/03/2023 Feeling Lonely or Isolated Not on file 10/03 Educational Attainment Answer Date Nik rded Speak language other than Eritrean at home Not on file 10/03/2023 Want [...] Cerner Conversion Note - Historical Provider, - 10/30/2021 10:34 AM HEEL CASER Patient: HEYDI SIMS Age: 61 years Sex: Male : 1960 Associated Diagnoses: None Author: ARETHA RICHEY MD-RAD Pre-OP/Procedure Diagnosis: _Unknown Cancer Indication: Need for iv treatment Procedure Performed: Single lumen Power Port placement Procedural MD: Ct Travel Registered Nurse Pacu: None Sedation: IV Conscious Sedation Findings: Successful Right IJ Power Port placement with ultrasound and fluroscopy guidance. Complications: None EBL: Minimal Specimen(s) Removed: None Full report to follow. Electronically signed by Yovanny [facility] Conversion Road Supervisor Of Engines Cerner at 12/31/2022 1:32 PM CDT documented in this encounter Plan of Treatment Upcoming Encounters Date Type Department Care Team (Late st Contact Info) Description 05/03/2025 1:00 PM EDT Office Visit [facility] Neurology - [address] [place] [address] [place] [address] Ban De La Garza MD [address] [place] [address] Aida Rueda MD [address] [place] [address] 08/17/2025 2:15 PM EST Office Visit [facility] - [address] [place] [address] Ban De La Garza MD [address] [place] [address] documented as of this encounter Visit Diagnoses Not on filedocumented in this encounter Care Teams Blender/Braze Applicator Relationship Specialty Start Date End Date Case, Pat Saravia, RN Nurse Navigator 01/07/23 01/27/24 Ban De La Garza MD [address] [place] [address] Hematology and Oncology 01/13/24 documented as of this encounter
--- OUTSIDE RECORDS SUMMARY | 2025-03-24 13:52 | XMS_ITS | Encounter Summary ---
Author Organization [employer] ([place], [place], [place], [place]) Address [address] [place] [address] Care Team Providers Care Welding Machine Assembler Name Role Phone Case, Pat Saravia RN Unavailable Unavailable Ivanna De La Garza MD Unavailable [phone] Encounter Details Date Type Department Care Team (Late st Contact Info) Description 10/30/2021 Transcribed Document [facility] Family Medicine [address] [place] [address] ProviderCollins MD [address] [place] [address] Social History Tobacco Use Types Packs/Day Years Used Date Smoking Tobacco: Never Assessed Family and Community Support Answer Jeffry e Recorded Help with Day to Day Activities Not on file 10/03/2023 Feeling Lonely or Isolated Not on file 10/03 Educational Attainment Answer Date Nik rded Speak language other than Ivorian at home Not on file 10/03/2023 Want [...] * Cerner Conversion Note - Historical Provider, MD - 10/30/2021 11:22 AM LEGAL ASSISTANT [facility] [place] [address] HEYDI SIMS :1960 Visit Time:10/30/2021 Your [...] 3 days Comments Follow-up as instructed Where: [address] [place] [address] [address] [place] [address]- [facility] (1) Medications What How Much When [...] port is placed, you will get a management trainee marketing's information card. The card has information about [...] and water are not available, use hand city planner. ? Change your dressing as told by [...] it is safe. General instructions ??? Take xpcx-fzf-hoqmmeb and prescription medicines only as told by [...] by your health care provider. Keep the management trainee marketing's information card with you at all times. [...] provider. Document Revised: 03/30/2019 Document Reviewed: 03/30/2019 [employer] Systems Patient Education ?? 202 [employer] Inc. Moderate Conscious Sedation, Adult, Care After [...] eating solid foods. General instructions ??? Take gjry-mja-bqebgnm and prescription medicines only as told by [...] Assistance with quitting is available by contacting 1-671-HPLD-NOW. This is a free resource providing counseling, support, and referral. Or you may contact your personal physician. [place] Suicide Prevention Lifeline: The National Suicide Prevention [...] CPR? There are two easy steps: Call 9-1-1 if you see a teen or adult [...] between ( 9.2 and 12.0 ) Patient Name:MAUDEBERNADETTEViralHEYDI I have received and understand this information and was given the opportunity to ask questions. Patient/High Lift Operator Name: Patient/High Lift Operator Signature: Relationship to Patient: Clinician/Hospital High Lift Operator Signature: Date: documented in this encounter Plan of Treatment Upcoming Encounters Date Type Department Care Team (Late st Contact Info) Description 05/03/2025 1:00 PM EDT Office Visit [facility] Neurology - Halielisa [address] [facility] [place] [address] Ivanna De La Garza MD [address] [place] [address] Aida Rueda MD [address] [place] [address] 08/17/2025 2:15 PM EST Office Visit [facility] - [address] [place] [address] Ivanna De La Garza MD [address] [place] [address] documented as of this encounter Visit Diagnoses Not on filedocumented in this encounter Care Teams Welding Machine Assembler Relationship Specialty Start Date End Date Case, Pat Saravia RN Nurse Navigator 01/07/23 01/27/24 Ivanna De La Garza MD [address] [place] [address] Hematology and Oncology 01/13/24 documented as of this encounter
--- OUTSIDE RECORDS SUMMARY | 2025-03-24 13:52 | XMS_ITS | Encounter Summary ---
Author Organization [employer] ([place], [place], [place], [place]) Address [address] [place] [address] Care Team Providers Care Newsroom Intern Name Role Phone Case, Pat Saravia RN Unavailable Unavailable Ban De La Garza MD Unavailable [phone] Encounter Details Date Type Department Care Team (Late st Contact Info) Description 10/30/2021 Transcribed Document [facility] Family Medicine [address] [place] [address] ProviderCollins MD [address] [place] [address] Social History Tobacco Use Types Packs/Day Years Used Date Smoking Tobacco: Never Assessed Family and Community Support Answer Jeffry e Recorded Help with Day to Day Activities Not on file 10/03/2023 Feeling Lonely or Isolated Not on file 10/03 Educational Attainment Answer Date Nik rded Speak language other than Cymraes at home Not on file 10/03/2023 Want [...] Conversion Note - Historical Provider, - 10/30/2021 8:28 AM SALES ARCHITECT Pre Procedure Adult Entered On: 10/30/2021 8:42 EST Performed On: 10/30/2021 8:28 EST by NNEKA ZHANG RN Height and Weight, Clinical Dosing Height Source : Stated Height Entry Format : [place] Height, Feet : 5 ft(Converted to: 152 cm, 60 Inch) Height, Inches : 7 Inch(Converted to: 0 ft 7 Inch, 17.78 cm) Clinical Height : 170.18 cm Weight Source : Standing scale Weight Entry Format : [place] Clinical Dosing Weight : 94.09 kg Weight, Pounds : 207 lb Body Surface Area (BSA) : 2.05 m2 Body Mass Index : 32.5 kg/m2 (HI) [place] Body Weight : 65 kg NNEKA ZHANG [...] INF Disease Recent Travel Calc : 0 VICENTE GINNY EARLY - 10/30/2021 8:28 EST COVID19 PreProcedure Screening [...] : Spouse Current Home Treatments : None VICENTE GINNY EARLY 10/30/2021 8:28 EST [place] Suicide Severity Rating Scale (C-SSRS) CSSRS Past [...] Obtained From : Patient Primary Language : Cymraes Preferred Communication Mode : Verbal Communication Barrier : None Transit Proof Machine Operator Needed : No NNEKA ZHANG RN - [...] Apnea Risk Level Score : 2 NNEKA ZHANGGINNY - 10/30/2021 8:28 EST Elroy Scale Elroy Sensory Perception : No impairment [place]roy Moisture : Rarely moist [place]roy Activity : Walks frequently Elroy Mobility : No limitation Elroy Nutrition : Excellent Elroy Friction and Shear : No apparent problem Elroy Score : 23 NNEKA ZHANGGINNY - 10/30/2021 8:28 EST Oxygen Therapy Oxygen Therapy Mode : Room air VICENTESHAWNNEKA, RN - 10/30/2021 8:28 EST Pain Assessment Pain Assessment : Initial assessment Pain Scale Used : 0-10 Scale VICENTESHAWNNEKA, RN - 10/30/2021 8:28 EST Fall Risk [...] Scale Risk Level : 25-45 Medium Risk [place] Fall Interventions : Adequate lighting, Bed in low position, Call device within reach, Frequent orientation to call device, Frequent orientation to surroundings, Non-slip footwear, Personal items within reach, Room free of clutter/spills, Wheels locked, Wires/Cords secured SHAW ZHANGGINNY SOW - 10/30/2021 8:28 EST Valuables and Belongings Valuables and Belongings : Clothing, Jewelry, Personal items Clothing : Common streetwear Clothing Disposition : Bedside Jewelry : Ring-plain band Jewelry Disposition : With patient Personal Items : Cell phone, Wallet Personal Items Disposition : With family VICENTE GINNY EARLY - 10/30/2021 8:28 EST Pain Scale Intensity [...] Description 05/03/2025 1:00 PM EDT Office Visit [facility] Neurology - [address] [place] [address] Ban De La Garza MD [address] [place] [address] Aida Rueda MD [address] [place], [place] [address] 08/17/2025 2:15 PM EST Office Visit [facility] - [address] [place] [address] Ban De La Garza MD [facility] [address] [place], [place] [address] documented as of this encounter Visit Diagnoses Not on filedocumented in this encounter Care Teams Newsroom Intern Relationship Specialty Start Date End Date Case, Pat Saravia, RN Nurse Navigator 01/07/23 01/27/24 Ban De La Garza MD [address] [place], [place] [address] Hematology and Oncology 01/13/24 documented as of this encounter
--- OUTSIDE RECORDS SUMMARY | 2025-03-24 13:52 | XMS_ITS | Encounter Summary ---
Author Organization [employer] ([place], [place], [place], [place]) Address [address] [place] [address] Care Team Providers Care Hospital Admissions Officer Name Role Phone Ban De La Garza MD Unavailable [phone] Encounter Details Date Type Department Care Team (Late st Contact Info) Description 02/22/2025 Orders Only [facility] - [place] [id number] [facility] [address] [place] [address] Ban De La Garza MD [address] [facility] [address] [place] [address] Social History Tobacco Use Types Packs/Day Years [...] Date Nik rded Speak language other than American at home Not on file 10/03/2023 Want [...] Description 05/03/2025 1:00 PM EDT Office Visit [facility] Neurology - [address] [place] [address] Ban De La Garza MD [facility] [address] [place] [address] Aida Rueda MD [address] [place], [place] [address] 08/17/2025 2:15 PM EST Office Visit [facility] - [address] [place] [address] Ban De La Garza MD [address] [place] [address] documented as of this encounter Visit Diagnoses Not on filedocumented in this encounter Care Teams Hospital Admissions Officer Relationship Specialty Start Date End Date Ban De La Garza MD [address] [place] [address] Hematology and Oncology 01/13/24 documented as of this encounter
--- OUTSIDE RECORDS SUMMARY | 2025-03-24 13:52 | XMS_ITS | Encounter Summary ---
Author Organization [employer] ([place], [place], [place], [place]) Address [address] [place] [address] Care Team Providers Care Biztalk Architect Name Role Phone Case, Pat Saravia RN Unavailable Unavailable Ban De La Garza MD Unavailable [phone] Encounter Details Date Type Department Care Team (Late st Contact Info) Description 02/21/2022 Transcribed Document [facility] Family Medicine [address] [place] [address] ProviderCollins MD [address] [place] [address] Social History Tobacco Use Types Packs/Day Years Used Date Smoking Tobacco: Never Assessed Family and Community Support Answer Jeffry e Recorded Help with Day to Day Activities Not on file 10/03/2023 Feeling Lonely or Isolated Not on file 10/03 Educational Attainment Answer Date Nik rded Speak language other than Irish at home Not on file 10/03/2023 Want [...] as of this encounter Miscellaneous Notes * H[employer]ner Conversion Note - Historical Provider, - 02/21/2022 12:19 PM CDT Patient Education [...] cannot use soap and water, use hand sample stitcher. ? Change the bandage as often as [...] scar, or cover it up. ??? Take hjff-lbf-lkylfci and prescription medicines only as told by [...] provider. Document Revised: 07/28/2020 Document Reviewed: 07/28/2020 HeartFlow Patient Education ? 2020 [employer] Inc. Implanted Port Removal Home Guide An [...] implanted port has two main parts: ??? [place]. The reservoir is the part where a [...] water are not available, use alcohol-based hand sample stitcher. ? Change your dressing as told by [...] provider. Document Revised: 01/15/2021 Document Reviewed: 01/15/2021 HeartFlow Patient Education ?? 2020 [employer] Inc. Pharmacology Moderate Conscious Sedation, Adult, Care [...] eating solid foods. General instructions ??? Take yxdi-dyd-knejufj and prescription medicines only as told by [...] provider. Document Revised: 12/29/2020 Document Reviewed: 07/27/2020 HeartFlow Patient Education ? 2020 [employer]. Electronically signed by Interface, Sjh Conversion Press Clippings Cutter And Paster Cerner at 12/31/2022 1:32 PM CDT documented in this encounter Plan of Treatment Upcoming Encounters Date Type Department Care Team (Late st Contact Info) Description 05/03/2025 1:00 PM EDT Office Visit [facility] Neurology - Rad[address] [place] [address] Ban De La Garza MD [address] [place] [address] Aida Rueda MD [address] [place] [address] 08/17/2025 2:15 PM EST Office Visit [facility] - [place] [address] [place] [address] Ban De La Garza MD [address] [place] [address] documented as of this encounter Visit Diagnoses Not on filedocumented in this encounter Care Teams Biztalk Architect Relationship Specialty Start Date End Date Case, Pat Saravia, RN Nurse Navigator 01/07/23 01/27/24 Ban De La Garza MD [address] [place] [address] Hematology and Oncology 01/13/24 documented as of this encounter
--- OUTSIDE RECORDS SUMMARY | 2025-03-24 13:52 | XMS_ITS | Clinical Summary ---
Author Organization [facility] Address [address] [place] [address] Care Team Providers Care Coiled Coil Inspector Name Role Phone Moreno Witt MD Primary Care Provider [phone] Allergies Active Allergy Reactions Criticality Noted Date [...] 2005 UKY-Zoster Vaccines (1 of 2) 2010 [id number] Vaccine (4 - season) 2024 08/03/2021, 10/18/2020, 09/19/2020 UKY-Influenza Vaccine (#1) 05/16/202507/06, 2020, 06/11/2017 UKY-Pneumococcal Vaccine: 50 + Years [...] patient's age to complete this topic [place] [address] Care Teams Coiled Coil Inspector Relationship Specialty Start Date End Date Moreno Witt MD [address] [place] [address] PCP - General 10/16/21
--- OUTSIDE RECORDS SUMMARY | 2025-03-24 13:52 | XMS_ITS | Clinical Summary ---
Author Organization [employer] ([place], [place], [place] Address [address] [place] [address] Care Team Providers Care Soap Drier Operator Name Role Phone Ban De La Garza MD Unavailable Allergies Active Allergy Reactions Criticality Noted Date [...] Department Care Team Description 02/22/2025 Orders Only [facility] [place] [address] [place] [address] Ban De La Garza MD 02/02/2025 Orders Only [facility] [place] [address] [place] [address] Reanna Thomas, AAMIR Tremor (Primary Dx) 02/02/2025 Telephone [facility] [place] [address] [place] [address] Ban De La Garza MD Advice Only 01/31/2025 2:30 PM EDT Office Visit [facility] [place] [address] [place] [address] Ban De La Garza MD History of non-Hodgkin lymphoma (Primary Dx); Pulmonary edema; GERD (gastroesophageal reflux disease); Tremor 01/31/2025 Orders Only [facility] [place] [address] [place] [address] Ban De La Garza MD 01/20/2025 Orders Only [facility] [place] [address] [place] [address] ProviderCollins MD from Last 3 Months Family History Medical [...] Description 05/03/2025 1:00 PM EDT Office Visit [facility] Neurology - [place] [address] [place] [address] Ban De La Garza MD [address] [place] [address] [place] [address] Aida Rueda MD [address] [place] [address] 08/17/2025 2:15 PM EST Office Visit [facility] [place] [address] [place] [address] Ban De La Garza MD [address] [place] [address] [place] [address] Health Maintenance Due Date Last Done Comments CT Colonography 1960 Colonoscopy 1960 Colorectal Cancer Screening 1960 FOBT/FIT 1960 Fit-DNA (Cologuard) 1960 Sigmoidoscopy 1960 Depression Screening (12+) 1972 HIV Screening 1975 DTAP/TDAP/TD VACCINES (1 - Tdap) 1979 Shingles Vaccine (Zoster) (1 of 2) 1979 Lipid Panel 1995 Respiratory Syncytial Virus (RSV) Adult or (1 - Risk 60-74 years 1-dose series) 2020 COVID-19 VACCINE (4 - season) 2024 08/03/2021, 10/18/2020, 09/19/2020 Influenza Vaccine (#1) 2025 Tobacco Cessation Counseling and Screening (12+) [...] with automated diff (01/31/2025 1:56 PM EDT) [facility] WBC 9.0 4.5 - 11.0 K/ L [...] ult [facility]COL[facility] LAB[facility] - [place] [address] [phone] * (ABNORMAL) PROBNP (01/31/2025 1:56 PM EDT) ProBNP (pg/mL) 219(H) 0 - 125 pg/mL 01/31/2025 3:05 PM EDT [facility] Blood Venipuncture / Unknown 01/31/2025 1:56 PM EDT 01/31/2025 1:59 PM EDT Ban De La Garza MD LAB BLOOD ORDERABLES Final Res ult [facility] [address] [phone] * Lactate dehydrogenase (LDH) (01/31/2025 1:56 PM EDT) [facility] LDH 212 87 - 241 U/L 01/31/2025 3:05 PM EDT [facility] Blood Venipuncture / Unknown 01/31/2025 1:56 PM EDT 01/31/2025 1:59 PM EDT us Ban De La Garza MD LAB BLOOD ORDERABLES Final Res ult [facility] [address] [phone] * (ABNORMAL) Comprehensive metabolic panel (01/31/2025 1:56 PM EDT) [facility] Sodium 137 136 - 146 meq/L 01/31/2025 [...] LABORATORY Osmolality Calc 274.2 mOsm/kg 3:05 PM T [facility] eGFR (mL/min/1.73m2) >60 >=60 mL/min/1.7 3m2 01/31/2025 3:05 PM T [facility] Comment:ESTIMATED GFR IS NOT ACCURATE CREATININE CLEARANCE IN PREDICTING GLOMERULAR FILTRATION RATE. ESTIMATED GFR IS NOT APPLICABLE FOR DIALYSIS PATIENTS. Blood Venipuncture / Unknown 01/31/2025 1:56 PM EDT 01/31/2025 1:59 PM EDT us Ban De La Garza MD LAB BLOOD ORDERABLES Final Res ult [facility] [address] [phone] * EXTERNAL IMAGING - CT (01/20/2025 2:20 [...] 9:58 AM EST 10/24/2021 3:36 PM EST [facility] Historical Provider LAB BLOOD ORDERABLES nal Result Performing Organization Address City/State/[facility] Co de Phone Number [facility] [address] [phone] from Last 3 Months or Most Recently Relevant to Health Maintenance Insurance BLUE CROSS/BLUE SHIELD Care Teams Soap Drier Operator Relationship Specialty Start Date End Date Ban De La Garza MD [address] [facility] [address] [place] [address] Hematology and Oncology 01/13/24
--- OUTSIDE RECORDS SUMMARY | 2025-03-24 13:52 | XMS_ITS | Encounter Summary ---
Author Organization [employer] ([place], [place], [place], [place]) Address [address] [place] [address] Care Team Providers Care Heel Former Name Role Phone Case, Pat Saravia RN Unavailable Unavailable Ban De La Garza MD Unavailable [phone] Encounter Details Date Type Department Care Team (Late st Contact Info) Description 10/30/2021 Transcribed Document [facility] Family Medicine [address] [place] [address] ProviderCollins MD [address] [place] [address] Social History Tobacco Use Types Packs/Day Years Used Date Smoking Tobacco: Never Assessed Family and Community Support Answer Jeffry e Recorded Help with Day to Day Activities Not on file 10/03/2023 Feeling Lonely or Isolated Not on file 10/03 Educational Attainment Answer Date Nik rded Speak language other than Albanian at home Not on file 10/03/2023 Want [...] Aram Conversion Note - Historical Provider, - 10/30/2021 10:06 AM MANAGER OPERATIONAL Patient Education Materials Follows: Moderate Conscious Sedation, [...] eating solid foods. General instructions ??? Take dwqy-dnf-aldvedd and prescription medicines only as told by [...] provider. Document Revised: 12/29/2020 Document Reviewed: 07/27/2020 [employer] Patient Education ? 2020 [employer] Procedures Implanted Port Insertion, Care After [...] port is placed, you will get a apprentice technician's information card. The card has information [...] and water are not available, use hand concrete paving supervisor. ? Change your dressing as told by [...] it is safe. General instructions ??? Take [id number]-[id number] and prescription medicines only as told by [...] by your health care provider. Keep the apprentice technician's information card with you at all [...] provider. Document Revised: 03/30/2019 Document Reviewed: 03/30/2019 [employer] Patient Education ? 2020 [employer] documented in this encounter Plan of Treatment Upcoming Encounters Date Type Department Care Team (Late st Contact Info) Description 05/03/2025 1:00 PM EDT Office Visit [facility] Neurology - [place] [address] [place] [address] Ban De La Garza MD [address] [place] [address] [place] [address] Aida Rueda MD [address] [place] [address] 08/17/2025 2:15 PM EST Office Visit [facility] [place] [address] [place] [address] Ban De La Garza MD [address] [place] [address] [place] [address] documented as of this encounter Visit Diagnoses Not on filedocumented in this encounter Care Teams Heel Former Relationship Specialty Start Date End Date Case, Pat Saravia, RN Nurse Navigator 01/07/23 01/27/24 Ban De La Garza MD [address] [place] [address] [place] [address] Hematology and Oncology 01/13/24 documented as of this encounter
== END 2025-03-24 23:59 | disposition home or self-care (01) ==
LOC: LAB.DROPOF 13:48
PROVIDERS: PCP Internal Medicine; Visit Provider Internal Medicine
DX: Z12.5 Encounter for screening for malignant neoplasm of prostate (principal)
CPT/HCPCS: G0103

== ENCOUNTER 2025-06-16 14:01 | Outpatient (CLI) | payer MEDICARE, SELFPAY ==
--- OUTSIDE RECORDS SUMMARY | 2025-06-16 14:04 | XMS_ITS | Clinical Summary ---
Author Organization [facility] Address [address] [place] [address] Care Team Providers Care Bilingual Sales Representative Name Role Phone Moreno Witt MD Primary Care Provider [phone] Allergies Active Allergy Reactions Criticality Noted Date [...] Date Last Done Comments UKY-Depression Screening 1960 UKY-/Child/Adol SDOH Screenings 1960 UKY- SDOH Screenings 1978 UKY-Adult SDOH Screenings 1978 UKY-DTaP,Tdap,and Td Vaccine s (1 - Tdap) 1979 CT Colonography 2005 Colonoscopy 2005 FIT-DNA 2005 FIT 2005 FOBT 2005 Sigmoidoscopy 2005 UKY-Colorectal Cancer Screening 2005 UKY-Zoster Vaccines (1 of 2) 2010 [id number] Vaccine (4 - season) 2025 08/03/2021, 10/18/2020, 09/19/2020 UKY-Influenza Vaccine (#1) 05/16/202507/06, [...] patient's age to complete this topic [place] [address] Care Teams Bilingual Sales Representative Relationship Specialty Start Date End Date Moreno Witt MD [address] [place] [address] PCP - General 10/16/21
[2025-06-16 14:35] LABS: Hematocrit 44.8 % (42.0-52.0); Hemoglobin 15.3 g/dL (14.1-18.0); Immature Granulocytes % 0.1 %; Mean Corpuscular HGB Conc 34.2 g/dL (31.8-35.4); Mean Corpuscular Hemoglobin 31.9 pg (27.0-31.2); Mean Corpuscular Volume 93.5 fl (80-94); Nucleated Red Blood Cells % 0 %; Platelet Count 337 K/mm3 (142-424); Red Blood Count 4.79 M/mm3 (4.60-6.20); Red Cell Distribution Width-SD 45.5 fL; White Blood Count 8.6 K/mm3 (4.8-10.8)
[2025-06-16 15:35] LABS: Alanine Aminotransferase 18 U/L (12-78); Albumin Level 4.0 g/dl (3.5-5.0); Alkaline Phosphatase 89 U/L (38-126); Anion Gap 14.0 mEq/L (5-15); Aspartate Amino Transferase 23 U/L (17-59); Bilirubin,Direct 0.2 mg/dl (0.0-0.4); Bilirubin,Indirect 0.5 mg/dL (0.0-0.9); Bilirubin,Total 0.7 mg/dl (0.2-1.3); Bilirubin,Unconjugated 0.5 mg/dL (0.0-1.1); Blood Urea Nitrogen 15 mg/dl (9-20); Calcium 9.6 mg/dl (8.4-10.2); Carbon Dioxide 26 mmol/L (22.0-30.0); Chloride 104 mmol/L (98-107); Cholesterol 202 mg/dl (140-200); Creatinine,Serum 0.80 mg/dl (0.66-1.25); Estimated Glomerular Filt Rate 97 ml/min (>60); GFR (African American) 117 ML/MIN (>60); Glucose 87 mg/dl (74-100); HDL Cholesterol 41 mg/dl (40-60); Magnesium 1.9 mg/dl (1.6-2.3); Potassium 5.0 mmoL/L (3.5-5.1); Sodium 139 mmol/L (136-145); Total Protein,Serum 6.7 g/dl (6.3-8.2); Triglycerides 148 mg/dl (30-150)
[2025-06-16 15:56] LABS: Free T4 (Free Thyroxine) 1.31 ng/dl (0.78-2.19)
[2025-06-16 16:07] LABS: Thyroid Stimulating Hormone 2.14 uIU/mL (0.465-4.68)
== END 2025-06-16 23:59 | disposition home or self-care (01) ==
LOC: LAB 14:02
PROVIDERS: PCP Internal Medicine; Visit Provider Nurse Practitioner
DX: I10 Essential (primary) hypertension (principal)
CPT/HCPCS: 36415; 80048; 80061; 80076; 83735; 84439; 84443; 85025

== ENCOUNTER 2025-06-27 13:39 | Outpatient (CLI) | payer MEDICARE, SELFPAY ==
--- OUTSIDE RECORDS SUMMARY | 2025-06-27 14:02 | XMS_ITS | Clinical Summary ---
Author Organization [employer] ([place], [place], [place], [place]) Address [address] [place] [address] Care Team Providers Care Engineering Drafter Name Role Phone Ban De La Garza MD Unavailable [phone] Allergies Active Allergy Reactions Criticality Noted [...] HTN (hypertension) 10/16/2021 Obesity (BMI 30.0-34.9) 10/16/2021 Family History Medical History Relation Name Comments [...] Care Team (Late st Contact Info) Description 07/12/2025 1:00 PM EDT Office Visit [facility] Neurology - [place] [address] [place] [address] Ban De La Garza MD [address] [place] [address] [place] [address] Aida Rueda MD [address] [place] [address] 08/17/2025 2:15 PM EST Office Visit [facility] [place] [address] [place] [address] Ban De La Garza MD [address] [place] [address] [place] [address] Health Maintenance Due Date Last Done Comments CT Colonography 1960 Colonoscopy 1960 Colorectal Cancer Screening 1960 FOBT/FIT 1960 Fit-DNA (Cologuard) 1960 Sigmoidoscopy 1960 Depression Screening (12+) 1972 HIV Screening 1975 DTAP/TDAP/TD VACCINES (1 - Tdap) 1979 Shingles Vaccine (Zoster) (1 of 2) 1979 Lipid Panel 1995 Respiratory Syncytial Virus (RSV) Adult or (1 - Risk 60-74 years 1-dose series) 2020 Falls Risk Screening 09/15/2024 COVID-19 VACCINE (4 - 2024- season) 2025 08/03/2021, 10/18/2020, 09/19/2020 Influenza Vaccine (#1) 2025 Abdominal Aortic Aneurysm (A AA) Screen 2025 07/15/2023, 07/10/2022 Tobacco Cessation Counseling and Screening (12+) 01/31/2026 01/31/2025 Pneumococcal 50+ years (3 of 3 - PCV20 or PCV21) 03/05/2027 03/05/2022, 10/22/2021 Hepatitis C Screening Completed 10/24/2021 Procedures Procedure Name Priority Date/Time Associated Diagnosis Comments CT CHEST ABDOMEN PELVIS W CONTRAST STAT 07/15/2023 1:25 PM EDT 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 No adenopathy. Images reviewed, interpreted and dictated by Dr. Teodoro Norton MD Narrative 07/15/2023 2:[address] OF THE CHEST, ABDOMEN AND PELVIS HISTORY: Follow-up of B-cell lymphoma. PROCEDURE: Routine axial images were obtained from the lung apices to the pubic symphysis following IV and oral contrast administration. This study was performed with techniques to keep radiation doses as low as reasonably achievable, (ALARA). Individualized dose reduction techniques using automated exposure control or adjustment of mA and/or kV according to the patient size were employed. COMPARISON: 07/10/2022 FINDINGS: Chest: The lungs are clear except for small calcified granuloma in the left lower lobe. The heart and mediastinum are unremarkable. There is no pleural disease, adenopathy or significant osseous abnormality. Abdomen: The gallbladder, solid abdominal organs and ureters are normal except for a tiny left renal cyst. Postoperative changes are seen in the gastric fundus. The GI tract is otherwise unremarkable, with no sign of appendicitis. Pelvis: The urinary bladder is normal. There is no pelvic or abdominal ascites, adenopathy, or acute osseous abnormality. Procedure Note Teodoro Norton MD - 07/15/2023 CT OF THE CHEST, ABDOMEN AND PELVIS HISTORY: Follow-up of B-cell lymphoma. PROCEDURE: Routine axial images were obtained from the lung apices to the pubic symphysis following IV and oral contrast administration. This study was performed with techniques to keep radiation doses as low as reasonably achievable, (ALARA). Individualized dose reduction techniques using automated exposure control or adjustment of mA and/or kV according to the patient size were employed. COMPARISON: 07/10/2022 FINDINGS: Chest: The lungs are clear except for small calcified granuloma in the left lower lobe. The heart and mediastinum are unremarkable. There is no pleural disease, adenopathy or significant osseous abnormality. Abdomen: The gallbladder, solid abdominal organs and ureters are normal except for a tiny left renal cyst. Postoperative changes are seen in the gastric fundus. The GI tract is otherwise unremarkable, with no sign of appendicitis. Pelvis: The urinary bladder is normal. There is no pelvic or abdominal ascites, adenopathy, or acute osseous abnormality. IMPRESSION: No acute disease. No adenopathy. Images reviewed, interpreted and dictated by Dr. Teodoro Norton MD Mei Stewart APRN [facility] ORDERABLES Final Re sult * Hepatitis panel, acute (10/24/2021 9:58 AM [...] 9:58 AM EST 10/24/2021 3:36 PM EST [facility] Historical Provider LAB BLOOD ORDERABLES Fi nal Result [facility] [address] [place] [address], [facility] [phone] from Last 3 Months or Most Recently Relevant to Health Maintenance Insurance BLUE CROSS/BLUE SHIELD Care Teams Engineering Drafter Relationship Specialty Start Date End Date Ban De La Garza MD [address] [facility] [address] [place] [address] Hematology and Oncology 01/13/24
--- OUTSIDE RECORDS SUMMARY | 2025-06-27 14:02 | XMS_ITS | Clinical Summary ---
Author Organization [facility] Address [address] [place] [address] Care Team Providers Care Group Practice Pediatrician Name Role Phone Moreno Witt MD Primary Care Provider [phone] Allergies Active Allergy Reactions Criticality Noted Date [...] 2005 UKY-Zoster Vaccines (1 of 2) 2010 [id number] Vaccine (4 - season) 2025 08/03/2021, 10/18/2020, [...] patient's age to complete this topic [place] [address] [address] Care Teams Group Practice Pediatrician Relationship Specialty Start Date End Date Moreno Witt MD [address] [place] [address] PCP - General 10/16/21
--- OUTSIDE RECORDS SUMMARY | 2025-06-27 14:02 | XMS_ITS | Referral Summary ---
Author Organization [employer] ([place], [place], [place], [place]) Address [address] [place] [address] Care Team Providers Care Shorthand Reporter Name Role Phone Ban De La Garza MD Unavailable [phone] Allergies Active Allergy Reactions Criticality Noted [...] 07/12/2025 1:00 PM EDT Office Visit [facility] Neurology - [facility] [address] [place] [address] Ban De La Garza MD [facility] [address] [place] [address] Aida Rueda MD [address] [facility] [address] [place] [address] 08/17/2025 2:15 PM EST Office Visit [facility] - [place] [address] [place] [address] Ban De La Garza MD [address] [place] [address] [place], [place] [id number] Procedures Procedure Name Priority Date/Time Associated Diagnosis [...] dictated by Dr. Teodoro Norton MD Mei Terry HEALTH UNIT CLERK [facility] CT ORDERABLES Final Re sult * Hepatitis [...] 9:58 AM EST 10/24/2021 3:36 PM EST [facility] Historical Provider LAB BLOOD ORDERABLES nal Result [facility] [address] [phone] from Last 3 Months or Most Recently Relevant to Health Maintenance Insurance BLUE CROSS/BLUE SHIELD Care Teams Shorthand Reporter Relationship Specialty Start Date End Date Ban De La Garza MD [address] [facility] [address] [place] [address] Hematology and Oncology 01/13/24
[2025-06-27 14:58] LABS: INR 1.02 (0.9-1.1); Prothrombin Time 11.4 seconds (10.1-12.5)
== END 2025-06-27 23:59 | disposition home or self-care (01) ==
LOC: LAB 13:40
PROVIDERS: PCP Internal Medicine; Visit Provider Internal Medicine
DX: I34.0 Nonrheumatic mitral (valve) insufficiency (principal)
CPT/HCPCS: 36415; 85610

== ENCOUNTER 2025-06-28 09:51 | Day surgery (SDC) | payer MEDICARE, SELFPAY ==
[2025-06-21 14:14] VITALS: BMI 39.5
[2025-06-28 10:32] VITALS: BP 170/101; PULSE 74; RESP 18; TEMP 36.2; O2SAT 97; BMI 39.5
[2025-06-28] MEDS: LACTATED RINGERS 1000ML 1,000 ML 25 ML IV (10:43)
--- NOTE | 2025-06-28 11:00 | CA_ITS ---
APPROVED REPORT EXAM: Comprehensive 2D, Doppler, and color-flow Echocardiogram Sales Teacher: RT Royal(R) Ht: 5 ft 8 in Wt: 265lbs BSA: 2.30 BP: 141/71 mmHg Indications: MR evaluation, at least moderate MR and MVP on TTE. Procedure After obtaining informed consent, patient underwent transesophageal echo in the [facility]. Type of Sedation : Conscious Sedation Sedation was administered by Jose Angel Bernabe C.R.N.A. Sedation start time: 11:20 Case end Time: 11:37 Transesophageal probe was inserted and advanced into esophagus without difficulty by Dr. Javi Hooper. The MICHELLE was performed without complications. Throughout the procedure, the blood pressure, pulse oximetry, cardiac rhythm, and rate were monitored. The patient tolerated the procedure without adverse effects. Recovery from conscious sedation was uneventful and vital signs were stable. Left Ventricle The left ventricle is normal size. The left ventricular systolic function is normal. The left ventricular ejection fraction is within the normal range. There is increased LV wall thickness. There is normal LV segmental wall motion. LVEF is 60%. Right Ventricle The right ventricle is normal size. The right ventricular systolic function is normal. Atria Left atrium is moderately dilated. No thrombus is visualized in the left atrium or appendage. Right atrium is mildly dilated. The interatrial septum is intact with no evidence for an atrial septal defect. Aortic Valve The aortic valve is mildly thickened. The aortic valve is trileaflet. There is no aortic valvular stenosis. Mild to moderate aortic regurgitation. Mitral Valve There is prolapse of the posterior mitral valve leaflet (P2 segment) along with flail or cordal rupture in the corresponding segment. No evidence of mitral valve stenosis. Severe, degenerative mitral regurgitation is present. The MR jet is very eccentric and directed anteriorly. The mechanism of MR is likely due to prolapse and flail of the posterior MV leaflet (Heide class II). EROA by PISA method is 0.42 cm2. MR volume is 65 mL. Regurgitant fraction is 55%. Tricuspid Valve Tricuspid valve is grossly normal in structure and function. Mild tricuspid regurgitation. RVSP is 20 mmHg + RA pressure. Pulmonic Valve The pulmonary valve is normal in structure. Mild pulmonic regurgitation. Great Vessels The aortic root is normal in size. The ascending aorta is normal in size. Pericardium Trivial, circumferential pericardial effusion is present. Other Information Study Quality: Fair Conclusion Normal biventricular systolic function. Biatrial dilation. Prolapse of the posterior mitral valve leaflet (P2 segment) along with flail or cordal rupture in the corresponding segment. Severe, degenerative mitral regurgitation is present. The MR jet is very eccentric and directed anteriorly. The mechanism of MR is likely due to prolapse and flail of the posterior MV leaflet (Heide class II). EROA by PISA method is 0.42 cm2. MR volume is 65 mL. Regurgitant fraction is 55%. Mild to moderate AI. Mild TR, mild PI. Trivial, circumferential pericardial effusion. In the setting of severe, degenerative MR (Heide class II), early referral for evaluation of surgical MVR vs. AMADO is recommended. Electronically signed by : Shanika Hooper MD 06/29/2025 23:52:19
[2025-06-28 11:28] VITALS: BP 111/72; PULSE 68; RESP 16; TEMP 36.2; O2SAT 96
[2025-06-28 11:38] VITALS: BP 105/73; PULSE 61; RESP 16; O2SAT 98
[2025-06-28 11:48] VITALS: BP 136/69; PULSE 74; RESP 16; O2SAT 95
[2025-06-28 11:57] VITALS: BP 129/67; PULSE 71; RESP 16; O2SAT 96
== END 2025-06-28 11:58 | disposition home or self-care (01) ==
PROVIDERS: PCP Internal Medicine; Visit Provider Internal Medicine
PROC: (CPT 93312; principal; 2025-06-28 11:00)
DX: I34.1 Nonrheumatic mitral (valve) prolapse (principal); I35.1 Nonrheumatic aortic (valve) insufficiency; I34.0 Nonrheumatic mitral (valve) insufficiency; R93.1 Abnormal findings on diagnostic imaging of heart and coronary circulation; I25.10 Atherosclerotic heart disease of native coronary artery without angina pectoris; I10 Essential (primary) hypertension; K21.9 Gastro-esophageal reflux disease without esophagitis; N40.0 Benign prostatic hyperplasia without lower urinary tract symptoms; Z79.899 Other long term (current) drug therapy; Z88.2 Allergy status to sulfonamides; Z91.041 Radiographic dye allergy status; C85.90 Non-Hodgkin lymphoma, unspecified, unspecified site; Z82.49 Family history of ischemic heart disease and other diseases of the circulatory system
CPT/HCPCS: 93270; 93312; 93319; J2003; J2704; J7120